=== PATIENT | male | born 1945 | race Caucasian/White ===

== ENCOUNTER 2017-06-15 11:31 | Inpatient (IN) ==
--- NOTE | 2017-06-15 18:18 | Diag Imaging Result Doc PS360 ---
CHEST-PORTABLE - 06/15/2017 INDICATION: Acute ischemia of left lower extremity TECHNIQUE: COMPARISON: 04/30/2016 FINDINGS: The lungs are normally expanded and clear. Heart size and mediastinal contours are normal. No pneumothorax or pleural effusion. IMPRESSION: Negative exam. Electronically signed by Sanju Perkins 06/15/2017 6:16 PM
[2017-06-15] MEDS ORDERED: D50W SYRINGE IV PRN (18:19)
[2017-06-15 18:22] LABS: MANUAL DIFF NEEDED? NO
[2017-06-15 18:24] LABS: BASO% 0.5 % (0.0-0.8); EOS# 0.06 X1000 (0.0-0.7); EOS% 0.5 % (0.0-10.0); HEMATOCRIT 36.7 % (42.0-52.0); HEMOGLOBIN 12.9 g/dL (14.0-18.0); IMM GRAN# 0.04 X1000 (0.0-0.04); IMM GRAN% 0.4 % (0.0-0.5); LYMPH# 1.94 X1000 (1.2-3.4); LYMPH% 17.6 % (20.5-51.1); MCH 33.1 PG (27-31); MCHC 35.1 g/dL (33-37); MCV 94.1 FL (81-99); MONO# 1.12 X1000 (0.11-0.59); MONO% 10.2 % (1.7-9.3); MPV 9.9 FL (7.4-10.4); NEUT% 70.8 % (42.2-75.2); PLT 275 X1000 (130-400)
[2017-06-15 18:33] LABS: INR 0.94; PROTIME 9.8 Seconds (9.2-11.7); PTT 26.1 Seconds (22.0-36.0)
[2017-06-15 18:53] LABS: AGAP 23; ALBUMIN 3.9 g/dL (3.5-5.0); ALKALINE PHOSPHATASE 128 U/L (32-122); BUN 16 mg/dL (8-22); CALCIUM 10.4 mg/dL (8.8-10.2); CHLORIDE 87 mmol/L (98-107); COSMO 278; GOT 11 U/L (10-34); GPT 9 U/L (10-44); SODIUM 137 mmol/L (136-145); TCO2 27 mmol/L (25-35); TOTAL BILIRUBIN 0.23 mg/dL (0.20-1.00); TOTAL PROTEIN 6.3 g/dL (6.3-8.3)
[2017-06-15] MEDS ORDERED: HEPARIN 25,000 UNIT in NS 250 ML IV SCH (20:00)
[2017-06-15] MEDS ORDERED: HEPARIN IV ONE (20:00)
[2017-06-15] MEDS: HUMALOG SUBQ SCH (20:11)
[2017-06-15] MEDS: CARDIZEM PO SCH (20:14)
[2017-06-15] MEDS: NICODERM PATCH TD SCH (20:39)
[2017-06-16] MEDS: NORCO-10 PO PRN ×2 (00:08→16:48)
[2017-06-16 02:40] LABS: MANUAL DIFF NEEDED? NO
[2017-06-16 02:49] LABS: BASO% 1.2 % (0.0-0.8); EOS# 0.33 X1000 (0.0-0.7); EOS% 3.5 % (0.0-10.0); HEMATOCRIT 33.8 % (42.0-52.0); HEMOGLOBIN 11.9 g/dL (14.0-18.0); IMM GRAN# 0.05 X1000 (0.0-0.04); IMM GRAN% 0.5 % (0.0-0.5); LYMPH# 2.06 X1000 (1.2-3.4); LYMPH% 22.1 % (20.5-51.1); MCH 33.4 PG (27-31); MCHC 35.2 g/dL (33-37); MCV 94.9 FL (81-99); MONO# 1.08 X1000 (0.11-0.59); MONO% 11.6 % (1.7-9.3); MPV 10.3 FL (7.4-10.4); NEUT% 61.1 % (42.2-75.2); PLT 205 X1000 (130-400); RBC 3.56 XMIL (4.7-6.1)
[2017-06-16] MEDS: CARDIZEM PO SCH ×4 (02:49→21:12)
[2017-06-16] MEDS ORDERED: HEPARIN IV ONE ×3 (03:32→11:19)
[2017-06-16] MEDS ORDERED: HEPARIN 25,000 UNIT in NS 250 ML IV SCH (03:33)
--- NOTE | 2017-06-16 05:16 | EKG Report ---
Test Performed on : 06/15/2017 6:02:07 PM Test Reason : Acute ischemia of left lower extremity Blood Pressure : / mmHG Vent. Rate : 058 BPM Atrial Rate : 058 BPM P-R Int : 150 ms QRS Dur : 086 ms QT Int : 444 ms P-R-T Axes : 040 025 -61 degrees QTc Int : [address] \T\ T wave abnormality, consider inferolateral ischemia Abnormal ECG When compared with ECG of 27-APR-2016 06:08, T wave inversion now evident in Inferior leads T wave inversion now evident in Anterolateral leads QT has shortened Confirmed by Hira Crocker MD ([id number]) on 06/21/2017 6:00:18 AM
[2017-06-16] MEDS: HUMALOG SUBQ SCH ×4 (06:10→21:11)
[2017-06-16] MEDS: GLUCOPHAGE PO SCH ×3 (08:35→16:48)
[2017-06-16] MEDS: PRINZIDE 20/12.5MG PO SCH (08:36)
[2017-06-16] MEDS: LASIX PO SCH ×2 (08:36→21:11)
[2017-06-16] MEDS: ASPIRIN EC PO SCH (08:36)
[2017-06-16] MEDS: LOPRESSOR PO SCH ×2 (08:36→21:12)
[2017-06-16] MEDS: KLOR-CON PO SCH (08:36)
[2017-06-16] MEDS: NICODERM PATCH TD SCH (08:37)
--- NOTE | 2017-06-16 08:57 | PROGRESS NOTE ---
DATE: 06/16/2017 Mr. Albrecht is on a heparin protocol. He has acute ischemia of the left lower extremity. We are going to get the arterial flow started in both legs and we are getting a vascular consult with Dr. Nam. cc: Casimiro Reeves MD
[2017-06-16] MEDS: PLAVIX PO SCH (10:27)
--- NOTE | 2017-06-16 11:23 | HISTORY AND PHYSICAL ---
HISTORY OF PRESENT ILLNESS: Mr. Albrecht who is a 71-year-old white gentleman, comes to the office with severe ischemia of the left forefoot especially all the toes more on the little toe and the big toe. He has some vascular disease and had bilateral arterial surgery probably stents in the past. I am not sure about that. However, he says that they did on him on both legs. He is a heavy smoker. Still smokes. Has been smoking for many years and still smokes about a pack of cigarettes per day. He has a history of hypertension, diabetes, and has gone into congestive heart failure. He had 1 stent put in his heart after he had a heart attack. Other details of personal, past, and family history of noncontributory. He does not drink. ALLERGIES: He is allergic to codeine. REVIEW OF SYSTEMS: Other than the color change and pain in the foot, it is he negative. Otherwise unremarkable. SOCIAL HISTORY: He retired about 10 years ago from work at [employer] in [place]. PHYSICAL EXAMINATION: VITAL SIGNS: Temperature normal, pulse about 56 per minute, respiratory rate 16 per minute. Blood pressure 175/75. HEENT: Head normocephalic. PERRLA. Fundus examination reveals grade 2 changes of hypertensive retinopathy. Neck supple. JVP normal. ENT exam unremarkable. There is no evidence of lymphadenopathy, thyroid enlargement, anemia or clubbing. He has some mild bilateral pedal edema. Pedal pulses are absent in the left foot. Feeble in the right foot. The popliteal pulses are also on very weak in the right in the left leg as well as in the right leg. Shady sign is negative. His toes revealed severe cyanotic toes especially the big toe and little toe and the other toes on the left side also are slightly discolored, bluish. BREAST: Exam reveals gynecomastia. CHEST: Normal to inspection. LUNGS: basal rales both bases. PMI in the 6th intercostal space outside the midclavicular line. HEART: Sounds normal. No murmur, gallop or rub noted. ABDOMEN: Nondistended. Hernial orifices normal. No guarding, rigidity, free fluid, masses, or organomegaly. Bowel sounds normal. RECTAL: Deferred. 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 Cranial nerves normal. Motor and sensory system examination unremarkable. Deep tendon reflexes normal. Plantars downgoing. Skull and spine examination normal for age. No cerebellar signs or signs of meningeal irritation. LOCOMOTOR EXAM: Unremarkable. SKIN EXAM: Unremarkable. CLINICAL IMPRESSION: Acute ischemia of the left lower extremity, especially the foot. We will start him on heparin protocol. He has history of hypertension, diabetes mellitus, coronary artery disease and congestive heart failure. cc: Casimiro Reeves MD
[2017-06-16] MEDS: HEPARIN 25,000 UNIT in NS 250 ML IV SCH (12:11)
--- NOTE | 2017-06-16 18:15 | CONSULTATION ---
DATE OF CONSULTATION: 06/16/2017 CHIEF COMPLAINT: Blue toes, great 4th and 5th toes of left foot. HISTORY OF PRESENT ILLNESS: This is a 71-year-old obese smoker who reports a recent onset of some bluish discoloration to his toes on the left foot. Apparently, according to his records, he has had previous problems with discoloration of his toes. He was seen by Dr. Reeves and admitted to the hospital for his ischemia. PAST MEDICAL HISTORY: Pertinent for nicotine abuse, hypertension, diabetes, congestive heart failure, and ischemic heart disease. PAST SURGICAL HISTORY: Previous surgery includes right common iliac stent and left external iliac stent placed by myself in 2013. MEDICATIONS: His medications at home include Plavix, Cardizem, Lasix, Prinzide, insulin, Glucophage, Lopressor. ALLERGIES: He is allergic to codeine. SOCIAL HISTORY: He does smoke daily. He is retired from [employer]. REVIEW OF SYSTEMS: As noted above. PHYSICAL EXAMINATION: Vital Signs: He is afebrile. Heart rate 58, blood pressure 161/82. Neck: No cervical adenopathy. Lungs: Bilateral breath sounds. He has end inspiratory wheezes. Heart: Regular rate and rhythm. Abdomen: Distended and nontender. Extremities: No femoral pulses are palpated. No pedal pulses are palpated. He has bluish discoloration of the 1st, 4th, and 5th toes of the left foot. ASSESSMENT AND PLAN: Probable digital ischemia from smoking, even though embolic phenomenon cannot be ruled out. The plan will be get a lower extremity arterial study and then potentially get a CT angiogram. cc: MD Casimiro Chopra MD
--- NOTE | 2017-06-16 18:56 | VASCULAR LAB ---
PROCEDURE NAME: Arterial Bilateral Legs - 06/15/2017 REFERRING PHYSICIAN: Casimiro Reeves MD. READING PHYSICIAN: Giancarlo Helton MD. WRAPPER SIZER: Obed. INDICATION: Left foot pain and toe discoloration. FINDINGS: The pulse volume waveforms show blunted pulsatile flow beginning in the left calf down through the ankle and digital level, and the low thigh level on the left all the way through the digital level. Segmental pressures: right brachial 139, low thigh 157, popliteal 112, dorsalis pedis 96, posterior tibial 95, toe pressure 78, SARBJIT 0.6. Left brachial pressure 160, low thigh 101, popliteal 97, dorsalis pedis 98, posterior tibial 98, toe pressure 27, SARBJIT 0.6. INTERPRETATION: There is evidence of stenosis at the distal superficial femoral, popliteal level on the right and on the left it may be in the common femoral to superficial femoral area. cc: MD Casimiro Nuñez MD
[2017-06-17] MEDS: HEPARIN 25,000 UNIT in NS 250 ML IV SCH ×2 (01:32→07:48)
[2017-06-17] MEDS: CARDIZEM PO SCH ×4 (02:56→21:07)
[2017-06-17] MEDS: NORCO-10 PO PRN ×3 (03:46→21:10)
[2017-06-17] MEDS: HUMALOG SUBQ SCH ×5 (05:50→21:06)
[2017-06-17] MEDS: NICODERM PATCH TD SCH (05:51)
[2017-06-17 05:56] LABS: MANUAL DIFF NEEDED? NO
[2017-06-17 06:00] LABS: BASO% 0.7 % (0.0-0.8); EOS# 0.17 X1000 (0.0-0.7); EOS% 1.8 % (0.0-10.0); HEMATOCRIT 33.7 % (42.0-52.0); HEMOGLOBIN 11.8 g/dL (14.0-18.0); IMM GRAN# 0.05 X1000 (0.0-0.04); IMM GRAN% 0.5 % (0.0-0.5); LYMPH# 1.39 X1000 (1.2-3.4); LYMPH% 14.3 % (20.5-51.1); MCH 33.8 PG (27-31); MCV 96.6 FL (81-99); MONO# 0.77 X1000 (0.11-0.59); MONO% 7.9 % (1.7-9.3); MPV 10.3 FL (7.4-10.4); NEUT% 74.8 % (42.2-75.2); PLT 191 X1000 (130-400); RBC 3.49 XMIL (4.7-6.1)
[2017-06-17 06:22] LABS: CALCIUM 9.2 mg/dL (8.8-10.2); POTASSIUM 3.4 mmol/L (3.5-5.1)
[2017-06-17] MEDS ORDERED: HEPARIN IV ONE (06:52)
[2017-06-17] MEDS: PRINZIDE 20/12.5MG PO SCH (09:04)
[2017-06-17] MEDS: LASIX PO SCH ×2 (09:04→21:06)
[2017-06-17] MEDS: ASPIRIN EC PO SCH (09:04)
[2017-06-17] MEDS: GLUCOPHAGE PO SCH ×3 (09:05→16:55)
[2017-06-17] MEDS: LOPRESSOR PO SCH ×3 (09:05→21:09)
[2017-06-17] MEDS: KLOR-CON PO SCH (09:05)
[2017-06-17] MEDS: PLAVIX PO SCH (09:07)
--- NOTE | 2017-06-17 20:55 | PROGRESS NOTE ---
DATE: 06/17/2017 SUBJECTIVE: Mr. Albrecht has been on IV heparin. He has digital ischemia which can be from embolic phenomenon as per Dr. Nam, but we will try to get the lower extremity arterial study and then potentially CT angiogram. His EKG revealed sinus bradycardia. He is not in atrial fibrillation at the present time. He has some ischemic changes. This still can be Possibility of embolic phenomenon. We will try to get the echocardiogram on him also. cc: Casimiro Reeves MD
--- NOTE | 2017-06-17 20:59 | ECHO REPORT ---
ORDER DATE: 06/17/2017 MEASUREMENTS: Left ventricular end-diastolic diameter 5.6, end-systolic diameter 3.6. Septal thickness 1.1. Posterior wall thickness 0.9. Left atrium 4.2. Aortic root 4.0. SUMMARY: 1. Technically difficult study due to limited acoustic window quality. 2. Minimal sclerosis of trileaflet aortic valve demonstrated with normal aortic valve opening evident. Mitral, tricuspid and pulmonic valves are without structural abnormality with trace mitral regurgitation, trace tricuspid regurgitation and trace pulmonic insufficiency. The aortic root is mildly enlarged. 3. Normal left ventricular dimensions suggested on 2-D images. Estimated left ejection fraction appears to be at least 65%. No regional wall motion abnormality can be appreciated. Left atrium is borderline enlarged. Right atrium and right ventricle are normal in size with normal right ventricular systolic function. 4. No pericardial effusion. 5. Appearance of the inferior vena cava suggests normal central venous pressure. CONCLUSIONS: 1. Technically difficult study. 2. No significant valvular abnormality. 3. Estimated left ejection fraction at least 65%. 4. Borderline left atrial enlargement. 5. Mild aortic root enlargement. cc: MD Casimiro Rivas MD
[2017-06-18] MEDS: HEPARIN 25,000 UNIT in NS 250 ML IV SCH ×3 (00:59→13:18)
[2017-06-18] MEDS: CARDIZEM PO SCH ×4 (03:47→19:59)
[2017-06-18] MEDS: NORCO-10 PO PRN ×3 (05:15→21:59)
[2017-06-18 05:52] LABS: MANUAL DIFF NEEDED? NO
[2017-06-18 05:56] LABS: BASO% 0.9 % (0.0-0.8); EOS# 0.36 X1000 (0.0-0.7); EOS% 3.4 % (0.0-10.0); HEMATOCRIT 33.3 % (42.0-52.0); HEMOGLOBIN 11.4 g/dL (14.0-18.0); IMM GRAN# 0.09 X1000 (0.0-0.04); IMM GRAN% 0.9 % (0.0-0.5); LYMPH# 1.49 X1000 (1.2-3.4); LYMPH% 14.1 % (20.5-51.1); MCH 33.4 PG (27-31); MCHC 34.2 g/dL (33-37); MCV 97.7 FL (81-99); MONO# 0.72 X1000 (0.11-0.59); MONO% 6.8 % (1.7-9.3); MPV 10.1 FL (7.4-10.4); NEUT% 73.9 % (42.2-75.2); PLT 207 X1000 (130-400); RBC 3.41 XMIL (4.7-6.1)
[2017-06-18] MEDS: HUMALOG SUBQ SCH ×4 (06:35→20:19)
[2017-06-18] MEDS: NICODERM PATCH TD SCH (10:42)
[2017-06-18] MEDS: ASPIRIN EC PO SCH (10:42)
[2017-06-18] MEDS: GLUCOPHAGE PO SCH ×3 (10:42→17:26)
[2017-06-18] MEDS: PLAVIX PO SCH (10:42)
[2017-06-18] MEDS: LOPRESSOR PO SCH ×2 (10:43→20:19)
[2017-06-18] MEDS: LASIX PO SCH ×2 (10:43→20:19)
[2017-06-18] MEDS: PRINZIDE 20/12.5MG PO SCH (10:43)
[2017-06-18] MEDS: KLOR-CON PO SCH (10:43)
--- NOTE | 2017-06-18 12:01 | PROGRESS NOTE ---
DATE: 06/18/2017 Mr. Albrecht is receiving IV heparin. He is recovering from acute arterial insufficiency in the left leg. He also has some problems with the right leg and also probably the superficial femoral artery on both sides. He is getting an aortic arteriogram tomorrow. He is seen by Dr. Nam. cc: Casimiro Reeves MD
--- NOTE | 2017-06-18 14:14 | PROGRESS NOTE ---
DATE: 06/18/2017 SUBJECTIVE: The patient says his left foot is feeling a little better. Still hurts some. OBJECTIVE: Vital Signs: He is afebrile. Vital signs are stable. General: He is awake and alert. He is oriented x4. No acute distress. Extremities: His left foot is warm; however, the toes are purple in appearance. I can feel palpable pulse at the posterior tibial on the left. Lower extremity arterial study was reviewed. He does have stenosis of the right SFA and popliteal artery on the left common femoral and superficial femoral artery. His toe pressures on the left are significantly reduced as well. ASSESSMENT AND PLAN: A 71-year-old male with peripheral arterial disease and ischemic left toes. He is on heparin drip. Dr. Nam will be back Tuesday for further evaluation and possible intervention. cc: MD Casimiro Nuñez MD
[2017-06-19] MEDS: HEPARIN 25,000 UNIT in NS 250 ML IV SCH ×3 (00:43→20:25)
[2017-06-19] MEDS: CARDIZEM PO SCH ×4 (01:58→20:25)
[2017-06-19] MEDS: HUMALOG SUBQ SCH ×3 (06:06→16:26)
[2017-06-19] MEDS: NORCO-10 PO PRN ×3 (06:36→20:24)
[2017-06-19] MEDS: NICODERM PATCH TD SCH ×2 (06:36→09:26)
[2017-06-19] MEDS: PRINZIDE 20/12.5MG PO SCH (09:22)
[2017-06-19] MEDS: PLAVIX PO SCH (09:22)
[2017-06-19] MEDS: GLUCOPHAGE PO SCH ×3 (09:22→16:25)
[2017-06-19] MEDS: LASIX PO SCH ×2 (09:22→20:24)
[2017-06-19] MEDS: KLOR-CON PO SCH (09:22)
[2017-06-19] MEDS: ASPIRIN EC PO SCH (09:22)
--- NOTE | 2017-06-19 09:22 | PROGRESS NOTE ---
DATE: 06/19/2017 SUBJECTIVE: The patient says his left great toe sometimes will throb but overall he thinks his foot is feeling better. OBJECTIVE: Vital Signs: He is afebrile. Vital signs are stable. General: He is alert and oriented x4. No acute distress. Extremities: His left foot is warm. The 2nd through 5th toes are warm and pink. The great toe is less ischemic appearing. It is more pink today than yesterday. It is somewhat cool at the tip. ASSESSMENT/PLAN: A 71-year-old male with peripheral arterial disease and ischemia of the right foot. This appears to be improving. He should continue his heparin drip. Dr. Nam will re- evaluate him tomorrow for any possible revascularization of the left lower extremity. This is actually his left lower extremity which is bothering him and is the left foot that I examined, and his lower extremity arterial study indicates worsened disease on the left side. cc: MD Casimiro Nuñez MD
[2017-06-19] MEDS: LOPRESSOR PO SCH ×2 (09:23→20:24)
--- NOTE | 2017-06-19 10:32 | PROGRESS NOTE ---
DATE: 06/19/2017 Mr. Albrecht is doing better. His lungs are clear. Heart sounds are normal. Toe color is improving. He had arteriogram done today, the results will be back later on. He is on IV heparin which we will continue. cc: Casimiro Reeves MD
--- NOTE | 2017-06-19 11:54 | Diag Imaging Result Doc PS360 ---
EXAM: ANGIOGRAM/AORTA W/RUNOFF INDICATION: Ischemic toes TECHNIQUE: In addition to the thin section CTA axial images, 3-D MIP reformations were obtained. COMPARISON: None. FINDINGS: There is extensive aortoiliac atherosclerotic disease with extensive calcification and soft mural plaques. There is intermittent aortic ectasia. This is similar to the previous study. However, at the distal aorta just proximal to the bifurcation, there is a small aneurysm that is larger measuring approximately 3.4 x 3.2 cm axially (2.7 x 2.7 cm previously). There is intermittent luminal narrowing throughout the aorta due to mural thrombus similar to the previous study but it remains patent. There is extensive iliac artery atherosclerotic calcification with intermittent moderate luminal stenosis. There appears to have been interval placement of stents in the right common iliac artery and left external iliac artery. Both stents remain patent. However, there is fairly severe stenosis at the distal aspect of the stent on the left. There is moderate to severe stenosis involving the celiac trunk that is stable. The proximal segment of the EMILE is occluded but it is reconstituted distally. The SMA and renal arteries are patent. Otherwise, the abdomen and pelvis are essentially stable with no evidence of acute pathology. Right: There is atherosclerotic calcification involving the common femoral artery with only mild narrowing. There is atherosclerotic disease involving the superficial femoral artery with severe stenosis distally. The proximal popliteal artery is occluded. It is reconstituted distally. There is atherosclerotic disease involving the proximal anterior tibial artery. However, it remains patent and provide runoff to the foot. There is atherosclerotic calcification at the tibioperoneal trunk but it remains patent. The posterior tibial artery is patent throughout its course providing runoff to the foot. There is mild atherosclerotic calcification involving the proximal peroneal artery. The peroneal artery is very diminutive distally but it is a least patent at the level of the ankle. Left: There is atherosclerotic disease involving the common femoral artery with mild to moderate stenosis. Atherosclerotic disease involving the superficial femoral artery is causing focal moderate stenosis at the mid thigh. It remains patent, however. Atherosclerotic disease at the proximal popliteal artery is causing moderate stenosis. It remains patent. The anterior tibial artery remains patent throughout its course providing runoff to the foot. There is mild calcification at the tibioperoneal trunk but it remains patent. There is mild calcification at the proximal posterior tibial artery. However, it remains patent throughout its course and provide runoff to the foot. The peroneal artery is patent throughout its course providing runoff to the foot. IMPRESSION: Advanced atherosclerotic disease involving the aorta, iliac arteries, and arteries of the lower extremities as detailed above with a small distal aortic aneurysm that is larger than the previous study. Electronically signed by Hasmukh Matos 06/19/2017 11:52 AM
[2017-06-20] MEDS: NORCO-10 PO PRN ×3 (04:14→20:14)
[2017-06-20] MEDS: CARDIZEM PO SCH ×4 (04:15→20:15)
[2017-06-20] MEDS: HUMALOG SUBQ SCH ×5 (06:04→20:13)
[2017-06-20] MEDS ORDERED: HEPARIN IV ONE (07:45)
[2017-06-20] MEDS: NICODERM PATCH TD SCH (08:28)
[2017-06-20] MEDS: PLAVIX PO SCH (08:28)
[2017-06-20] MEDS: GLUCOPHAGE PO SCH ×3 (08:29→17:04)
[2017-06-20] MEDS: KLOR-CON PO SCH (08:29)
[2017-06-20] MEDS: LASIX PO SCH ×2 (08:29→20:15)
[2017-06-20] MEDS: PRINZIDE 20/12.5MG PO SCH (08:29)
[2017-06-20] MEDS: LOPRESSOR PO SCH ×2 (08:29→20:13)
[2017-06-20] MEDS: ASPIRIN EC PO SCH (08:29)
[2017-06-20] MEDS ORDERED: HEPARIN 25,000 UNIT in NS 250 ML IV SCH (09:00)
--- NOTE | 2017-06-20 11:37 | PROGRESS NOTE ---
DATE: 06/20/2017 SUBJECTIVE: Mr. Albrecht is doing better. His stool color is improving. He is on IV heparin. He had CT angiogram done on the abdominal aorta as well as renal arteries, and he does have significant atherosclerosis as well as aneurysm of the lower abdominal aorta which is slightly larger than before. I discussed with Dr. Nam. He wants to do the balloon angioplasty of the left iliac artery, common iliac artery, and he will be doing it tomorrow. We will probably discharge him on Tuesday, the day after tomorrow. cc: Casimiro Reeves MD
[2017-06-21] MEDS: CARDIZEM PO SCH ×5 (01:51→22:30)
[2017-06-21] MEDS: NORCO-10 PO PRN ×3 (04:09→22:28)
[2017-06-21] MEDS: HUMALOG SUBQ SCH ×4 (06:05→22:50)
[2017-06-21] MEDS: LOPRESSOR PO SCH ×3 (08:25→22:31)
[2017-06-21] MEDS: NICODERM PATCH TD SCH ×2 (08:26→22:50)
[2017-06-21] MEDS: PLAVIX PO SCH (08:26)
[2017-06-21] MEDS: PRINZIDE 20/12.5MG PO SCH (08:26)
[2017-06-21] MEDS: KLOR-CON PO SCH (08:27)
[2017-06-21] MEDS: LASIX PO SCH ×2 (08:27→22:29)
[2017-06-21] MEDS: GLUCOPHAGE PO SCH ×2 (08:27→12:26)
[2017-06-21] MEDS: ASPIRIN EC PO SCH (08:28)
--- NOTE | 2017-06-21 09:23 | PROGRESS NOTE ---
DATE: 06/21/2017 Mr. Albrecht is doing better. His vital signs are stable. He still has some purple-colored forefoot, especially the big toe and the little toe. He is going to get balloon angioplasty today by Dr. Nam. Physical exam otherwise is unchanged. -2 cc: Casimiro Reeves MD
[2017-06-21] MEDS ORDERED: DIPRIVAN 1% ONE (12:13)
[2017-06-21] MEDS ORDERED: FENTANYL ONE (12:14)
[2017-06-21] MEDS ORDERED: HEPARIN ONE ×2 (12:18→12:19)
[2017-06-21] MEDS ORDERED: NS 2,000 ML ONE (12:18)
[2017-06-21] MEDS ORDERED: KEFZOL 1 GM/D5W 1 GM/50 ML IVPB ONE (12:35)
[2017-06-21] MEDS ORDERED: XYLOCAINE-MPF 2% ONE (13:23)
[2017-06-21] MEDS ORDERED: QUELICIN (DOSE) ONE (13:23)
[2017-06-21] MEDS ORDERED: ROBINUL ONE (13:23)
[2017-06-21] MEDS ORDERED: NORCURON ONE (13:24)
[2017-06-21] MEDS ORDERED: SODIUM CHLORIDE 0.9% 10 ML ONE (13:24)
[2017-06-21] MEDS ORDERED: XYLOCAINE 2% JELLY ONE (13:25)
[2017-06-21] MEDS ORDERED: NEOSTIGMINE ONE (13:25)
[2017-06-21] MEDS ORDERED: HEPARIN (DOSE) ONE (13:26)
[2017-06-21] MEDS ORDERED: ZOFRAN ONE (13:31)
[2017-06-21 14:33] LABS: URINE MICRO REVIEW NEEDED? NO; URINE SOURCE CATH
[2017-06-21 14:46] LABS: BILIRUBIN URINE NEGATIVE (NEGATIVE); BLOOD URINE NEGATIVE (NEGATIVE); COLOR YELLOW; GLUCOSE URINE NEGATIVE (NEGATIVE); LEUKOCYTES URINE NEGATIVE (NEGATIVE); NITRITE URINE NEGATIVE (NEGATIVE); PH URINE 7.5; PROTEIN URINE TRACE mg/dL (NEGATIVE); TURBIDITY URINE CLEAR (CLEAR); UR EPITHELIAL CELLS <10 /HPF (<10); URINE BACTERIA NEGATIVE /HPF; URINE RBC <10 /HPF (<10); URINE WBC <10 /HPF (<10); UROBILINOGEN URINE NORMAL (NORMAL)
--- NOTE | 2017-06-21 14:47 | OPERATIVE NOTE ---
PROCEDURE DATE: 06/21/2017 PROCEDURE: 1. Left femoral artery access with ultrasound guidance. 2. Diagnostic aortogram. 3. Percutaneous left external iliac artery balloon angioplasty. SURGEON: Hsueyin Nam MD. CONVENTIONAL MORTGAGE UNDERWRITER: Karlos Lopez. PREOPERATIVE DIAGNOSIS: Left external iliac stenosis with discoloration of the toes on the left. POSTOPERATIVE DIAGNOSIS: Left external iliac stenosis with discoloration of the toes on the left. DESCRIPTION OF PROCEDURE: After satisfactory general endotracheal anesthesia the abdomen and both groins were prepped and draped in a sterile fashion. We imaged the left common femoral artery and under ultrasound guidance accessed it with a needle and passed the wire and a 6-Kiswahili sheath. This was Seldinger approach. We shot contrast retrograde. It went into the stent but did not go up the stent. We then used a Glidewire and with some difficulty traversed the stenosis at the distal end of the stent. We passed it into the aorta and again with some manipulation it went on up into the aorta. We then put our pigtail up and shot an aortogram which revealed a right common iliac stent to be nicely patent. The right iliac system was patent. The left iliac system was okay except for at the distal end of the external iliac stent is where the stenosis was. The previously placed stent was an 8 mm Smart Control stent so, we chose a 7 x 4 balloon on an 80 cm shaft. We passed it up to the stenosis and dilated it to nominal pressure for 30 seconds. We then went to the proximal end of the stent and did the same so that we would treat the entire stent with the balloon. Repeat arteriogram through the sheath showed a stenosis or a residual stenosis in the mid aspect of the stent so we once again, positioned the balloon in the mid aspect of the stent and ballooned it again for 30 seconds to nominal pressure. We then shot a completion left iliac arteriogram showing complete resolution of the stenosis in the stent and at the distal end of the stent. So, we were completely satisfied with the result. We removed our wire, placed a 6 7 Mynx closure device into the artery and deployed the Mynx plug in an appropriate manner. We then held pressure after the device was removed for 3 minutes. There was no evidence of bleeding and a pressure dressing was applied. He was then sent to the recovery room in satisfactory condition. He tolerated the procedure satisfactorily. 80 mL of contrast were used. cc: MD Casimiro Chopra MD
[2017-06-21] MEDS: PERIDEX MT SCH (22:28)
[2017-06-22] MEDS: CARDIZEM PO SCH ×2 (02:43→08:46)
[2017-06-22] MEDS: NORCO-10 PO PRN ×2 (03:23→11:06)
[2017-06-22] MEDS: HUMALOG SUBQ SCH (06:01)
[2017-06-22 06:58] LABS: AGAP 11; BUN 11 mg/dL (8-22); CALCIUM 8.3 mg/dL (8.8-10.2); CHLORIDE 97 mmol/L (98-107); COSMO 285; POTASSIUM 3.6 mmol/L (3.5-5.1); SODIUM 142 mmol/L (136-145); TCO2 34 mmol/L (25-35)
[2017-06-22 08:10] VITALS: BP 134/72
[2017-06-22] MEDS: KLOR-CON PO SCH (08:46)
[2017-06-22] MEDS: PLAVIX PO SCH (08:46)
[2017-06-22] MEDS: LOPRESSOR PO SCH (08:46)
[2017-06-22] MEDS: PERIDEX MT SCH (08:46)
[2017-06-22] MEDS: PRINZIDE 20/12.5MG PO SCH (08:46)
[2017-06-22] MEDS: LASIX PO SCH (08:46)
[2017-06-22] MEDS: ASPIRIN EC PO SCH (08:46)
--- NOTE | 2017-06-22 09:25 | PROGRESS NOTE ---
DATE: 06/22/2017 Mr. Albrecht is doing better. He had a balloon angioplasty of the left external iliac artery yesterday by Dr. Nam. The color of the little toe is pink now. The big toe is less purple and he feels better. He is going to go back on clopidogrel as well as aspirin and I will see him in the office next week to evaluate his medicine. He will also be followed by Dr. Nam. cc: Casimiro Reeves MD
--- NOTE | 2017-06-22 12:01 | DISCHARGE SUMMARY ---
ADMISSION DATE: 06/15/2017 DISCHARGE DATE: 06/22/2017 HISTORY: Mr. Albrecht was admitted with acute ischemia of the left lower extremity. LABORATORY DATA IN THE HOSPITAL: A chest x-ray was negative for any acute problems. EKG had revealed he had some T-wave changes which were nonspecific. He was in sinus rhythm, had a short QT interval. A CTA of the aorta was done which revealed the presence of advanced atherosclerotic disease involving the aorta, iliac arteries, and arteries of the lower extremities as mentioned in the discharge report. There was an aortic aneurysm which was larger, but it was still small. His aneurysm is about 3.4 x 3.2 cm axially. COURSE IN THE HOSPITAL: He was put on IV heparin. Dr. Nam was consulted. After the initial arterial flow studies, he decided to do the CTA of the abdominal aorta and then decided about undergoing angioplasty on the left external iliac arteries which was performed yesterday. He is on Plavix as well as clopidogrel, and he is strictly advised to stop smoking. FINAL DIAGNOSES: 1. Acute ischemia of the left lower extremity with generalized arteriosclerotic disease. 2. Stenosis of the left external iliac artery which was treated with balloon dilatation angioplasty. He will be seen in the office in about 3 to 4 days. I will give him a prescription of [place] 10 t.i.d. p.r.n., 30 tablets in the meantime. cc: Casimiro Reeves MD
--- NOTE | 2017-06-28 09:09 | DISCHARGE SUMMARY ---
ADMISSION DATE: 06/15/2017 DISCHARGE DATE: 06/22/2017 DISCHARGE SUMMARY ADDENDUM: Mr. Albrecht is a gentleman recently admitted for acute ischemia of the left lower extremity. He was somewhat short of breath. He has chronic diastolic heart failure. cc: Casimiro Reeves MD
== END 2017-06-22 11:15 | disposition home or self-care (01) ==
LOC: DIRADM 11:31 → 4N 17:34
PROVIDERS: ADMIT Internal Medicine; ATTEND Internal Medicine

== ENCOUNTER 2017-07-19 11:53 | Inpatient (IN) ==
[2017-07-19] MEDS ORDERED: ASPIRIN PO STA (12:06)
--- NOTE | 2017-07-19 12:30 | Diag Imaging Result Doc PS360 ---
CHEST-PORTABLE - 07/19/2017 INDICATION: CP TECHNIQUE: COMPARISON: 06/15/2017 FINDINGS: There are small calcified granulomas in the left lung base. The lungs are normally expanded and clear. Heart size and mediastinal contours are normal. No pneumothorax or pleural effusion. IMPRESSION: Negative exam. Electronically signed by Sanju Perkins 07/19/2017 12:28 PM
[2017-07-19 12:43] LABS: BASO% 0.1 % (0.0-0.8); HEMATOCRIT 33.3 % (42.0-52.0); HEMOGLOBIN 12.5 g/dL (14.0-18.0); IMM GRAN# 0.04 X1000 (0.0-0.04); IMM GRAN% 0.2 % (0.0-0.5); LYMPH# 0.39 X1000 (1.2-3.4); LYMPH% 2.4 % (20.5-51.1); MANUAL DIFF NEEDED? NO; MCH 33.9 PG (27-31); MCHC 37.5 g/dL (33-37); MCV 90.2 FL (81-99); MONO# 1.38 X1000 (0.11-0.59); MONO% 8.4 % (1.7-9.3); MPV 9.9 FL (7.4-10.4); NEUT% 88.9 % (42.2-75.2); PLT 213 X1000 (130-400); RBC 3.69 XMIL (4.7-6.1)
[2017-07-19 12:48] LABS: INR 0.95; PROTIME 9.9 Seconds (9.2-11.7)
[2017-07-19] MEDS ORDERED: ASPIRIN ONE (13:31)
[2017-07-19 13:32] LABS: AGAP 15; ALBUMIN 3.8 g/dL (3.5-5.0); ALKALINE PHOSPHATASE 149 U/L (32-122); BUN 9 mg/dL (8-22); CALCIUM 11.7 mg/dL (8.8-10.2); CHLORIDE 62 mmol/L (98-107); CK PROFILE 164 U/L (24-204); COSMO 231; GOT 26 U/L (10-34); GPT 17 U/L (10-44); LIPASE 1041 U/L (13-60); MAGNESIUM 1.1 mg/dL (1.5-2.7); POTASSIUM 3.1 mmol/L (3.5-5.1); TCO2 34 mmol/L (25-35); TOTAL BILIRUBIN 0.87 mg/dL (0.20-1.00); TOTAL PROTEIN 5.9 g/dL (6.3-8.3)
[2017-07-19 13:36] LABS: SODIUM 115 mmol/L (136-145)
--- NOTE | 2017-07-19 13:37 | EKG Report ---
Test Performed on : 07/19/2017 11:37:05 AM Test Reason : Chest Pain Blood Pressure : / mmHG Vent. Rate : 081 BPM Atrial Rate : 081 BPM P-R Int : 150 ms QRS Dur : 092 ms QT Int : 408 ms P-R-T Axes : 041 -10 -32 degrees QTc Int : 473 ms Sinus rhythm. with premature atrial complexes. Nonspecific ST and T wave abnormality Abnormal ECG When compared with ECG of 15-JUN-2017 18:02, premature atrial complexes. are now present T wave inversion less evident in Inferior leads T wave inversion no longer evident in Anterolateral leads Unconfirmed Result
[2017-07-19] MEDS ORDERED: VANCOMYCIN 1 GM/NS 1 GM/250 ML IVPB IV ONE (14:08)
[2017-07-19] MEDS ORDERED: NS 1,000 ML IV ONE (14:09)
--- NOTE | 2017-07-19 14:31 | PROVIDER DOCUMENTATION ---
This chart was entered by Margarita Flannery Scribe, acting as scribe for Carmel Starks MD. HPI-General Adult - General Chief Complaint: Chest Pain Stated Complaint: cp Time Seen by Provider: 07/19/17 12:04 Source: patient Allergies/Adverse Reactions: Patient Allergies Allergy/AdvReac Type Severity Reaction Status Date / Time codeine AdvReac Unknown Verified 07/19/17 11:56 Home Medications: Home Medication List Medication Instructions Recorded Confirmed Last Taken Type Metformin [Glucophage] 500 mg PO TID 06/15/17 06/15/17 06/15/17 13:00 History Clopidogrel [Plavix] 75 mg PO DAILY tablet 06/22/17 Unknown Rx Diltiazem [Cardizem] 30 mg PO Q6HR tablet 06/22/17 Unknown Rx Furosemide [Lasix] 40 mg PO BID tablet 06/22/17 Unknown Rx Hydrocodone/APAP 10 mg/325 mg 1 each PO TID PRN PRN #0 tablet 06/22/17 Unknown Rx [Garland-10] LISINOpril/HCTZ [Prinzide 1 each PO DAILY tablet 06/22/17 Unknown Rx 20/12.5MG] Metoprolol [Lopressor] 50 mg PO BID tablet 06/22/17 Unknown Rx Potassium Chloride E.r. [Klor-Con] 10 meq PO DAILY tablet 06/22/17 Unknown Rx - History of Present Illness -Gen Adult Nature of Presenting Problems: Pt is a 71 year old male who came to the ED with chest/back pain for about two weeks. Pt is unclear when answering questions. Dr. Starks looked at pt left great toe which was cold to the touch and purple. Pt reports he has diabetes. Location of Pain/Injury: reports: chest, feet (left great toe) Pain Radiation: reports: back Quality of Pain: reports: sharp Severity: reports: mild Onset/Duration: reports: unsure Timing: reports: still present Modifying Factors: improves with: nothing Associated Symptoms: reports: back/neck pain, chest pain Similar Symptoms Previously?: No Recently seen or treated by another doctor?: No Review of Systems - Adult - REVIEW OF SYSTEMS - ADULT Constitutional: denies: chills, fever Eyes: reports: no symptoms reported Ears, Nose, Mouth & Throat: reports: no symptoms reported Cardiovascular: reports: chest pain. denies: heart murmur, orthopnea Respiratory: denies: cough, shortness of breath Gastrointestinal: denies: diarrhea, nausea, vomiting Genitourinary: reports: no symptoms reported Musculoskeletal: reports: back pain. denies: frequent leg cramps, joint swelling Integumentary: reports: other (left great toe has cyanosis and cold to touch). denies: itching, nail changes Neurological: reports: no symptoms reported Psychiatric: reports: no symptoms reported Endocrine: reports: no symptoms reported Hematologic/Lymphatic: reports: no symptoms reported Allergic/Immunologic: reports: no symptoms reported All Other Systems: Reviewed and Negative Past History - Adult - PAST MEDICAL HISTORY-ADULT Review of Records: reports: Old Records Reviewed, Nursing Assessment Review Major Childhood Illnesses: reports: denies history Cardiovascular: reports: CAD, CHF, HTN Respiratory: reports: COPD Gastrointestinal: reports: denies history Obstetrical/Gynecological: reports: denies history Genitourinary: reports: denies history Musculoskeletal: reports: denies history Neurological: reports: denies history Psychiatric: reports: anxiety Endocrine/Immune: reports: Diabetes Other Conditions: reports: denies history - IMMUNIZATION STATUS Childhood Immunizations: See Nurse Assessment Flu Vaccine: See Nurse Assessment - FAMILY HISTORY Family History: reviewed, not pertinent Physical Exam-General - CONSTITUTIONAL General Appearance: no apparent distress - EYES Eyes: PERRL/EOMI, pink conjunctivae - HEAD, EARS, NOSE, MOUTH & THROAT HENMT: normocephalic/atraumatic, moist mucous membranes - NECK Neck: non-tender, full range of motion - RESPIRATORY Respiratory: chest non-tender, lungs clear, normal breath sounds - CARDIOVASCULAR Cardiovascular: normal peripheral pulses, regular rate, rhythm - GASTROINTESTINAL (ABDOMEN) Abdominal Exam: normal bowel sounds, non tender, soft - MUSCULOSKELETAL Back Exam: normal inspection, no CVA tenderness Extremity: other (left great toe cold to the touch and purple in color) - SKIN Integumentary: normal color, cyanosis (left great toe) - NEUROLOGIC Neurologic: grossly normal - PSYCHIATRIC Psych/Mental Status: normal mood/affect, normal thought content, normal thought process, oriented x 3 Progress - PLAN OF CARE/RESULTS Progress/Plan/Lab Results: Orders Category Date Time Status Cardiac Monitoring DIRECTED Care 07/19/17 12:06 Active Saline Loc NOW Care 07/19/17 12:06 Active CHEST-PORTABLE [RAD] Stat Exams 07/19/17 12:06 Taken CBC WITH ELECTRONIC DIFF [HEME] Stat Lab 07/19/17 12:06 Uncollected CK PROFILE [SP CHEM] Stat Lab 07/19/17 12:06 Uncollected COMPREHENSIVE METABOLIC PANEL [CHEM] Stat Lab 07/19/17 12:06 Uncollected D-DIMER [CHEM] Stat Lab 07/19/17 12:06 Uncollected LIPASE [CHEM] Stat Lab 07/19/17 12:06 Uncollected MAGNESIUM [CHEM] Stat Lab 07/19/17 12:06 Uncollected PRO B-NATRIURETIC PEPTIDE Stat Lab 07/19/17 12:06 Uncollected PROTIME WITH INR [COAG] Stat Lab 07/19/17 12:06 Uncollected PTT [COAG] Stat Lab 07/19/17 12:06 Uncollected TROPONIN T Stat Lab 07/19/17 12:06 Uncollected Aspirin Med 07/19/17 12:06 Discontinued 325 mg PO STAT STA EKG [EKG] Stat Ther 07/19/17 12:06 Ordered Result Diagrams: 07/19/17 11:49 07/19/17 11:49 - EKG 1 Time of EKG reading by physician:: 11:37 EKG Read and Signed by:: Carmel Starks EKG Interpretation (*Must complete 3 of following elements*): Abnormal Rate: 81 (nonspecific ST and T wave abnormality) Rhythm: sinus rhythm w premature atrial complexes - XRAY 1 XRAY Study: Chest (negative exam) - ULTRASOUND (By Radiology) 1 US Study: Lower Ext (left toe has no blood supply) - CONSULTS/PCP/HOSPITALIST Notification #1 *Consult/PCP/Hospitalist*: Dr. Nam Time Discussed: 14:16 (agrees with Dr. Cruz plan. ) Consult Disposition: Will see in ED #2 Consult: Dr. Reeves Time Discussed: 14:17 (agrees with dr cruz plan) Departure - Departure Date of Disposition Decision: 07/19/17 Time of Disposition Decision: 14:28 DIAGNOSIS: Hyponatremia, Acute pancreatitis, Chest pain, PAD (peripheral artery disease) Disposition: ADMITTED INPATIENT 09 Certified Medical Emergency: Emergent Condition: Stable Referrals and Follow-Ups: None,PCP [Clinical Support] - - Critical Care Note This patient required my direct & personal management of CC.: Yes Total Time (mins): 60 Critical Care Statement: This patient required my direct personal management to treat or rule out processes, the absence of which, could potentiallly result in sudden, clinically significant life or limb threatening deterioration. Attestation - Physician/ HAI Attestation Patient care was provided by Advanced Practice Provider:: No The physician spent face to face time with patient:: Yes Advanced Practice Provider documentation review:: Supervising physician onsite and consulted in the evaluation and care of this patient. The physician did have a face to face encounter with the patient. This chart was documented by the indicated scribe, (Margarita Flannery Scribe) and accurately reflects the services I performed and decisions made by me, Carmel Starks MD, as attested by the provider's signature.
[2017-07-19] MEDS ORDERED: ROCEPHIN 1 GM in NS 50 ML IV SCH (18:00)
[2017-07-19] MEDS ORDERED: LOVENOX SUBQ SCH (18:00)
[2017-07-19] MEDS ORDERED: DILAUDID IV PRN (18:03)
--- NOTE | 2017-07-19 18:38 | HISTORY AND PHYSICAL ---
HISTORY: Mr. Albrecht, who is a 71-year-old white gentleman, came to the emergency room because he cannot move around. He is very sick. He has severe pain in both lower extremities and shortness of breath. He was brought in by ambulance with son accompanying. He was hospitalized about a month ago for severe ischemia of the lower extremities and he had angioplasty done of the common iliac artery on the left side by Dr. Nam. He improved some after that. His left big toe is still ischemic and he has acute severe ischemia of both lower extremities. He gets intermittent pain; however, he cannot walk much on account of congestive heart failure and back pain. He had at least 2 stents placed in his heart in the past and angioplasty done recently by Dr. Nam. He has onset diabetes, hypertension, and history of congestive heart failure. He has been a chronic smoker. He still smokes about 3-5 cigarettes per day in spite of repeated warning. He does not drink. ALLERGIES: He is allergic to codeine. REVIEW OF SYSTEMS: He is lethargic and is complaining. He denies having any chest pain; however, he has shortness of breath. PHYSICAL EXAMINATION: VITAL SIGNS: Reveal a temperature 98.9 degree Fahrenheit, pulse 85 per minute, respiratory rate 21 per minute, blood pressure 178/100. HEENT: Head normocephalic. Pupils PERRLA. Fundus examination normal. ENT examination unremarkable. NECK: Supple. JVP normal. There is no evidence of lymphadenopathy, thyroid enlargement, cyanosis, or clubbing. He is slightly anemic. EXTREMITIES: There is bilateral leg edema. He has cyanotic left foot especially the big toe. Pedal pulses are absent in both feet. BREASTS: Reveals mild gynecomastia. Chest normal inspection. LUNGS: Reveal bilateral basal rales. PMI in the normal position. HEART: Sounds normal. No murmur. There is S3 gallop present. No rub noted. No murmur noted. ABDOMEN: Obese. Hernial orifices normal. No guarding, rigidity, free fluid, masses, or organomegaly. Bowel sounds normal. RECTAL: Deferred. BASE PLY HAND: Higher functions: Patient gets intermittently confused. Cranial nerves normal. Motor and sensory system examination unremarkable. Deep tendon reflexes normal. Plantars downgoing. Skull and spine examination reveals painful movements of the lumbosacral spine. SLR positive. No cerebellar signs or signs of meningeal irritation. Locomotor exam unremarkable. SKIN EXAM: Reveals impending gangrene of the left big toe. He has some cyanosis. LAB DATA: Patient's sodium is 115, white count is elevated. CLINICAL IMPRESSION: Acute ischemia of the lower extremities. He has congestive heart failure. PLAN: Start the IV saline as ordered by in the emergency room and continue it. Start the antibiotics. Blood cultures have been drawn in the emergency room. We will also get a vascular consult with Dr. Nam who is aware of his status. cc: Casimiro Reeves MD
[2017-07-19] MEDS: CARDIZEM PO SCH (20:37)
[2017-07-19] MEDS: PRINZIDE 20/12.5MG PO SCH (20:38)
[2017-07-19] MEDS: POTASSIUM CHLORIDE 10 MEQ in NS 1,000 ML IV SCH (20:38)
[2017-07-20] MEDS: CARDIZEM PO SCH ×4 (01:18→20:33)
[2017-07-20 06:51] LABS: BASO% 0.1 % (0.0-0.8); HEMATOCRIT 36.2 % (42.0-52.0); HEMOGLOBIN 13.5 g/dL (14.0-18.0); IMM GRAN# 0.06 X1000 (0.0-0.04); IMM GRAN% 0.3 % (0.0-0.5); LYMPH# 0.27 X1000 (1.2-3.4); LYMPH% 1.4 % (20.5-51.1); MANUAL DIFF NEEDED? YES; MCH 33.9 PG (27-31); MCHC 37.3 g/dL (33-37); MONO# 1.09 X1000 (0.11-0.59); MONO% 5.7 % (1.7-9.3); MPV 10.1 FL (7.4-10.4); NEUT% 92.5 % (42.2-75.2); PLT 227 X1000 (130-400); RBC 3.98 XMIL (4.7-6.1)
[2017-07-20 07:07] LABS: BANDS 2 % (0-1); LYMPHS 2 % (21-51); MONO 4 % (1-9)
[2017-07-20 07:18] LABS: AGAP 22; BUN 9 mg/dL (8-22); CHLORIDE 65 mmol/L (98-107); COSMO 248; POTASSIUM 3.1 mmol/L (3.5-5.1); TCO2 32 mmol/L (25-35)
[2017-07-20 07:33] LABS: SODIUM 120 mmol/L (136-145)
--- NOTE | 2017-07-20 08:22 | PROGRESS NOTE ---
DATE: 07/20/2017 SUBJECTIVE: Mr. Albrecht was admitted yesterday with multiple medical problems, and noted to have bluish discoloration to his great toe. He is known to me from his visit in late May, at which time he was admitted with some digital ischemia to his fourth and fifth toes on the left. At that time, he was found to have a patent right common iliac stent and a stenotic left external iliac stent. We were able to percutaneously balloon his left external iliac stent. As a result, he now has a palpable pulse in his posterior tibial artery. His fourth and fifth toes are improved. His great toe has become bluish and discolored. PAST MEDICAL HISTORY: Pertinent for nicotine abuse, hypertension, diabetes, congestive failure, and ischemic heart disease. HOME MEDICATIONS: Have included aspirin and Plavix. OBJECTIVE: General: He is confused. Vital Signs: His heart rate is 122. Lungs: He has rhonchi bilaterally. Heart: Irregular rate and rhythm. Abdomen: Soft and nontender. He does have no evidence of groin hematoma. Extremities: He has a 2+ left posterior tibial pulse, bluish discoloration to his great toe. His fourth and fifth toes have improved. His right foot shows no ischemic change in the toes. There are no palpable pedal pulses noted. ASSESSMENT: This is digital ischemia related to his smoking. We have provided as much flow as we can provide down to the foot level. There is no intervention necessary at this time for his toe. We will simply allow it to declare itself whether it improves with him being away from cigarettes or whether it does not improve. I simply ask that he stay on Plavix and aspirin. I will follow along. Thanks for the opportunity to see him. cc: MD Casimiro Chopra MD
[2017-07-20] MEDS ORDERED: LASIX IV ONE (08:54)
[2017-07-20] MEDS ORDERED: STERILE WATER INJ. INJ PRN (08:56)
[2017-07-20] MEDS ORDERED: GEODON IM PRN (08:56)
[2017-07-20] MEDS ORDERED: ROCEPHIN 1 GM in NS 50 ML IV SCH (09:00)
[2017-07-20] MEDS ORDERED: LOVENOX SUBQ SCH (09:00)
[2017-07-20] MEDS ORDERED: LASIX PO SCH (09:00)
--- NOTE | 2017-07-20 09:09 | PROGRESS NOTE ---
DATE: 07/20/2017 SUBJECTIVE: Mr. Albrecht is not doing well this morning. He is confused, disoriented. He has severe pulmonary congestion. Heart rate is around 122. He still has some cyanotic big toe on the left side, with severe peripheral vascular disease and aortoiliac disease too. He was seen by Dr. Nam, who does not want to pursue any further surgical treatment. He wants to continue the Plavix as well as aspirin. We will give him injection Lasix today, and try to sedate him if we can. He is being restrained as he is trying to pull out the IV lines. -3 cc: Casimiro Reeves MD
[2017-07-20] MEDS: GLUCOPHAGE PO SCH ×3 (09:19→17:46)
[2017-07-20] MEDS: PRINZIDE 20/12.5MG PO SCH (09:20)
[2017-07-20] MEDS: KLOR-CON PO SCH (09:20)
[2017-07-20] MEDS: PLAVIX PO SCH (09:20)
[2017-07-20] MEDS: ASPIRIN EC PO SCH (09:20)
[2017-07-20] MEDS: POTASSIUM CHLORIDE 10 MEQ in NS 1,000 ML IV SCH (09:21)
[2017-07-20] MEDS: LOPRESSOR PO SCH ×2 (09:23→20:33)
[2017-07-20] MEDS: DUONEB (A & A) INH SCH ×3 (09:27→19:36)
[2017-07-20 09:42] LABS: URINE CULTURE NEEDED? NO; URINE SOURCE CLEAN CATCH
[2017-07-20 09:45] LABS: BILIRUBIN URINE SMALL (NEGATIVE); BLOOD URINE LARGE (NEGATIVE); COLOR YELLOW; GLUCOSE URINE 300 mg/dL (NEGATIVE); LEUKOCYTES URINE NEGATIVE (NEGATIVE); NITRITE URINE NEGATIVE (NEGATIVE); PROTEIN URINE 300 mg/dL (NEGATIVE); TURBIDITY URINE HAZY (CLEAR); URINE MICRO REVIEW NEEDED? YES; UROBILINOGEN URINE NORMAL (NORMAL)
[2017-07-20 09:48] LABS: UR EPITHELIAL CELLS <10 /HPF (<10); URINE BACTERIA NEGATIVE /HPF; URINE RBC TNTC /HPF (<10); URINE WBC <10 /HPF (<10)
[2017-07-20 09:58] LABS: URINE CASTS GRANULAR PRESENT
[2017-07-20] MEDS ORDERED: MAGNESIUM SULFATE 4 GM/S.W.I. 4 GM/100 ML IVPB IV ONE (10:19)
--- NOTE | 2017-07-20 10:19 | Diag Imaging Result Doc PS360 ---
CHEST-PORTABLE - 07/20/2017 INDICATION: respiratory distress TECHNIQUE: COMPARISON: 07/19/2017 FINDINGS: The lungs are normally expanded and clear. Heart size and mediastinal contours are normal. No pneumothorax or pleural effusion. IMPRESSION: Negative exam. Electronically signed by Sanju Perkins 07/20/2017 10:17 AM
[2017-07-20] MEDS ORDERED: SAMSCA PO ONE (10:30)
[2017-07-20] MEDS ORDERED: 1/2 NS 1,000 ML IV ONE (10:37)
[2017-07-20 10:52] LABS: ALLEN TEST YES; BE 18.7 mmoll (-3.0-3.0); BLOOD TYPE ARTERIAL; DRAW SITE L BRACHIAL; METHB 1.4 % (0.0-1.5); O2(CT) 17.2 mL/dL (15.0-23.0); PCO2(98.6) 42 mmHg (35-45); PO2(98.6) 74 mmHg (60-100); SAMPLE BLOOD; SAO2 97.8 % (95.0-100.0)
[2017-07-20 10:54] LABS: pH(98.6) 7.61 (7.35-7.45)
[2017-07-20 10:55] LABS: MODALITY BI PAP
[2017-07-20] MEDS: POTASSIUM CHLORIDE 20 MEQ/SWI 20 MEQ/100 ML IVPB IV SCH ×2 (10:58→14:48)
[2017-07-20] MEDS ORDERED: HUMULIN R SUBQ SCH (11:00)
[2017-07-20] MEDS ORDERED: QUELICIN (DOSE) ONE (11:13)
[2017-07-20] MEDS ORDERED: DIPRIVAN 1% ONE (11:13)
[2017-07-20] MEDS ORDERED: SODIUM CHLORIDE 0.9% 10 ML ONE (11:13)
[2017-07-20] MEDS ORDERED: NEO-SYNEPHRINE ONE (11:13)
[2017-07-20] MEDS ORDERED: XYLOCAINE-MPF 2% ONE (11:13)
--- NOTE | 2017-07-20 11:15 | CONSULTATION ---
DATE OF CONSULTATION: 07/20/2017 REASON FOR CONSULTATION: Cardiology was consulted for dyspnea, CHF, known coronary artery disease. HISTORY OF PRESENT ILLNESS: History could not be obtained from the patient as patient is obtunded. He is a 71-year-old, gentleman who came to the emergency room. He was brought by ambulance. He was noted to have worsening shortness of breath and lower extremity edema. The patient was admitted, started on BiPAP. Has had multiple medical problems as listed below. Further history could not be obtained from the patient. History was obtained from the chart as well as our office. He does have coronary artery disease. He has had 2 stents as well as angioplasty to lower extremities as listed below. REVIEW OF SYSTEMS: Could not be obtained from the patient. PAST MEDICAL HISTORY: 1. Coronary artery disease, status post stent placement to the right coronary artery. 2. Last echocardiogram 06/17/2017 revealed ejection fraction of 65%. 3. Diastolic heart failure. 4. COPD. 5. Hypertension. 6. Peripheral vascular disease with angioplasty to the common iliac and has peripheral vascular disease with ulcers, lower extremity. 7. Gastroesophageal reflux disease. 8. Tobacco abuse. 9. Hypertension. 10. COPD, on home oxygen. 11. Jaw surgery. 12. Hand surgery in the past. 13. Diabetes. HOME MEDICATIONS: Included metformin 500 mg p.o. t.i.d., Plavix 75 mg a day, Cardizem 30 mg q.6 hours, lisinopril/hydrochlorothiazide 20/12.5 one tablet a day, Lopressor 50 b.i.d., potassium supplements, aspirin 81 mg a day. PHYSICAL EXAMINATION: Vital Signs: Blood pressure was 97/53. Cardiovascular System: Jugular venous pressure could not be assessed. First and second heart sounds were heard. There was no S3 gallop. Respiratory System: Few scattered wheeze. Abdomen: Distended, firm, with some grimacing on palpation. Bowel sounds could not be auscultated. Central Nervous System: Patient is obtunded. Extremities: Examination of extremities revealed pulses could be palpated, dorsalis pedis bilaterally. LABORATORY EXAMINATION: Revealed sodium when he came in was 115 and today 120, potassium 3.1, BUN 9, creatinine 0.9. Cardiac enzymes negative. ProBNP abnormal at 3894. Lipase 1041. Magnesium 1.1. WBCs 19.02, hemoglobin 13.5, hematocrit 36.2, platelet count of 227,000. D- dimer is 0.62. INR 0.9. Urine examination, white blood cells noted. ASSESSMENT AND PLAN: Mr. Tone Albrecht is a 71-year-old, gentleman who was noted to have shortness of breath and pedal edema. Was brought to the emergency room by ambulance service. Patient is obtunded. From a cardiac standpoint, he has had stent placement to the right coronary artery, has peripheral vascular disease, diabetes, hypertension, and gastroesophageal reflux disease. He has chronic obstructive pulmonary disease and has home oxygen. He is obtunded, labile blood pressures. He has got elevated white counts. His abdomen is distended. With abnormal lipase as well as bowel sounds were not audible. 1. From a cardiac standpoint, we will get an echocardiogram to reassess cardiac and valvular function. Cardiac enzymes are negative so far. We will obtain serial cardiac enzymes. Electrocardiogram revealed normal sinus rhythm, nonspecific ST-T changes. There were no acute changes. Recommendations, I suspect he has acute abdomen and sepsis. Blood gases are pending. His lipase is abnormal with no bowel sounds audible at the present time. Would recommend a CT scan of his abdomen and further studies as required. His renal function is normal. 2. He has chronic obstructive pulmonary disease and he is on oxygen. He is currently on BiPAP. Dr. Ordonez has been consulted. 3. As far as electrolytes are concerned, his sodium is better. However, I suspect this is secondary to multiple likely etiologies. History could not be obtained from the patient. His sodium is better at 120. He is on intravenous fluids. May benefit from Samsca. However, we will hold that until other diagnosis is obtained by further testing. 4. He has severe peripheral vascular disease. Dr. Nam has been consulted. 5. His magnesium is low. It will be repleted. 6. As far as his blood pressure is concerned, it is tenuous. Secondary to sepsis and like acute abdomen If required, we will add Tyson- Synephrine to his medical regimen. Thank you for the consult. We will follow hospital course. cc: MD Casimiro Ramon MD MTDD
[2017-07-20] MEDS ORDERED: DIPRIVAN 1% 3,000 MG/300 ML BOTTLE ONE (11:21)
--- NOTE | 2017-07-20 11:31 | CONSULTATION ---
DATE OF CONSULTATION: 07/20/2017 REQUESTING PHYSICIAN: Dr. Casimiro Reeves. REASON FOR CONSULTATION: Respiratory failure. HISTORY OF PRESENT ILLNESS: Mr. Albrecht is a 71-year-old white male with COPD, chronic hypoxemic respiratory failure, ongoing tobacco use, coronary artery disease with prior stent placement, peripheral vascular disease, status post recent stenting of the lower extremities, who came to the emergency room with altered mental status. Patient had severe hyponatremia along with severe hypercalcemia and altered mental status. The patient was on nasal cannula but has had respiratory decompensation and was placed on BiPAP. PAST MEDICAL HISTORY: Problem List: 1. COPD with chronic hypoxemic respiratory failure. 2. Coronary artery disease with prior stent placement. 3. Peripheral vascular disease with ischemia of the lower extremities. 4. Diabetes mellitus. 5. Obstructive sleep apnea, status post uvulopalatopharyngoplasty. 6. Hypertension. 7. Morbid obesity. SOCIAL HISTORY: Ongoing tobacco use. Denies alcohol use. He is retired from FAMILY HISTORY: Positive for diabetes. REVIEW OF SYSTEMS: Cannot be obtained. PHYSICAL EXAMINATION: General: Exam reveals an obese, white male, who is disheveled and on BiPAP. He will not follow commands. Vital Signs: BP 112/84, heart rate 125, oxygen saturation 92% on BiPAP. HEENT: Pupils are equal. Oropharynx evaluation is limited with BiPAP in place. Neck: Supple. Chest: Reveals prolonged expiratory phase with scattered wheezing. Cardiac: Distant heart sounds. Normal S1. Normal S2. Abdomen: Obese with diminished bowel sounds. Extremities: Reveal ischemia of the left great toe with mild cyanosis. LABORATORY DATA: Chest x-ray this morning reveals normal heart size, normal lung zapata. No acute changes. White blood count 19,000. Hemoglobin 13.5, platelet count 227,000. Chemistries: Amylase 231 and lipase 1041. Calcium 12.0. Sodium 120, potassium 3.1, chloride 65, bicarbonate 32. BUN 9, creatinine 0.9. Arterial blood gas on 100% FiO2: pH 7.61, pCO2 of 42, PO2 of 74 on BiPAP. IMPRESSION: A 71-year-old with severe chronic obstructive pulmonary disease, who presents with altered mental status, [id number] hypoxemic respiratory failure, severe hyponatremia, severe hypercalcemia, component of pancreatitis with elevated pancreatic enzymes, leukocytosis, and chronic ischemia of the left great toe associated with vascular disease, ongoing tobacco use. Clinically, he appears to be dehydrated. RECOMMENDATIONS: 1. Intubation and initiation of mechanical ventilation for respiratory failure and progressive decline. 2. CT scan of the thorax for severe hypercalcemia to rule out underlying malignancy. 3. CT scan of the abdomen and pelvis with oral contrast to evaluate elevated pancreatic enzymes. 4. Volume resuscitation for hypovolemia and hypercalcemia. 5. Routine bronchodilators. 6. Blood cultures as you have done. 7. Routine gastric acid suppression. 8. Long-term smoking cessation would be recommended. 9. Serum protein electrophoresis for hypercalcemia. cc: MD Casimiro Gonzalez MD
[2017-07-20] MEDS: NEO-SYNEPHRINE 50 MG in NS 250 ML IV SCH ×2 (12:00→23:23)
[2017-07-20] MEDS: 1/2 NS 1,000 ML IV SCH ×4 (12:00→22:35)
[2017-07-20] MEDS: PROTONIX IV SCH (12:00)
[2017-07-20] MEDS: DIPRIVAN 1% 1,000 MG/100 ML BOTTLE IV SCH ×4 (12:01→22:35)
--- NOTE | 2017-07-20 12:44 | Diag Imaging Result Doc PS360 ---
CHEST-PORTABLE - 07/20/2017 1210 INDICATION: ETT placement TECHNIQUE: COMPARISON: 1010 FINDINGS: There is a new endotracheal tube at about T5. There is a new nasogastric tube off the bottom of the film presumably in the stomach. There are some ill-defined perihilar and bibasilar infiltrates. IMPRESSION: Good support tube placement. Electronically signed by Sanju Perkins 07/20/2017 12:42 PM
--- NOTE | 2017-07-20 12:45 | Diag Imaging Result Doc PS360 ---
CHEST/ABD TUBE PLACEMENT - 07/20/2017 INDICATION: Et and NG placement TECHNIQUE: COMPARISON: Earlier 07/20/2017 FINDINGS: There is a new nasogastric tube in good position with the tip in the stomach. IMPRESSION: Good nasogastric tube placement. Electronically signed by Sanju Perkins 07/20/2017 12:43 PM
[2017-07-20] MEDS ORDERED: NS 250 ML ONE (13:18)
[2017-07-20 13:21] LABS: AGAP 15; ALBUMIN 3.3 g/dL (3.5-5.0); ALKALINE PHOSPHATASE 112 U/L (32-122); BUN 10 mg/dL (8-22); CHLORIDE 73 mmol/L (98-107); COSMO 257; GOT 21 U/L (10-34); GPT 14 U/L (10-44); POTASSIUM 3.3 mmol/L (3.5-5.1); SODIUM 124 mmol/L (136-145); TCO2 36 mmol/L (25-35); TOTAL BILIRUBIN 0.51 mg/dL (0.20-1.00); TOTAL PROTEIN 4.9 g/dL (6.3-8.3)
[2017-07-20] MEDS ORDERED: NS 1,000 ML IV ONE ×2 (14:02→15:26)
[2017-07-20] MEDS ORDERED: VANCOMYCIN IV PER PHARMACY MISC SCH (15:30)
[2017-07-20] MEDS: ZOSYN 3.375 GM in NS 50 ML IV SCH ×2 (15:42→20:33)
--- NOTE | 2017-07-20 15:45 | Diag Imaging Result Doc PS360 ---
EXAM: CT THORAX/ABD/PELVIS W/O CONT INDICATION: abdominal pain TECHNIQUE: Dose reduction protocol was used. COMPARISON: CTA chest dated 06/20/2012 and CTA abdomen and pelvis dated 02/19/2014 FINDINGS: CHEST: There is stable pulmonary emphysematous changes. There are a few calcified granulomata at the left lung base. There is atelectasis at both lung bases, more prominent on the left. Superimposed pneumonia, especially at the left lung base is possible. There is trace pleural fluid on the right. The patient is intubated. There is mild cardiomegaly. An NG tube is in place. Abdomen/pelvis: The liver, spleen, and gallbladder are unremarkable. There is stable low dense thickening involving the left adrenal gland indicating hyperplasia or adenoma. There is mesenteric stranding that appears to be most prominent at the mid abdomen near the pancreas. Correlate clinically to evaluate for potential pancreatitis. There also appears to be at least mild thickening of the proximal duodenum suggesting possible duodenitis. There is no evidence of bowel obstruction. There is trace fluid tracking around the liver and the spleen. There are a few small renal cysts bilaterally. There are no renal stones and there is no hydronephrosis. There is a Deutsch catheter in the urinary bladder and the bladder is nondistended. There is no evidence of bowel obstruction. There is no free abdominal gas. IMPRESSION: 1.Bibasilar atelectasis, worse on the left. Superimposed pneumonia cannot be excluded. 2.Mesenteric stranding that appears to be concentrated around the pancreas. Acute pancreatitis should be considered. 3.Suggestion of mild thickening involving the proximal duodenum. Consider duodenitis. 4.Other incidental/nonacute findings detailed above. Electronically signed by Hasmukh Matos 07/20/2017 3:42 PM
[2017-07-20] MEDS: HUMULIN R SUBQ SCH ×2 (15:57→20:20)
[2017-07-20] MEDS ORDERED: VANCOMYCIN 2,300 MG in NS 500 ML IV ONE (17:00)
[2017-07-20 18:25] LABS: ALLEN TEST YES; BLOOD TYPE ARTERIAL; DRAW SITE L RADIAL; METHB 1.6 % (0.0-1.5); O2(CT) 14.8 mL/dL (15.0-23.0); PO2(98.6) 87 mmHg (60-100); SAMPLE BLOOD; SAO2 98.8 % (95.0-100.0); SRATE 15 BPM; TVOL 500 mL; pH(98.6) 7.48 (7.35-7.45)
[2017-07-20 18:26] LABS: MODALITY VENTILATOR; PCO2(98.6) 53 mmHg (35-45)
--- NOTE | 2017-07-20 18:30 | PROGRESS NOTE ---
DATE: 07/20/2017 Mr. Albrecht had some GI bleeding. He had respiratory distress. He was initially placed on BiPAP and then put on the vent. His sodium was 124, potassium was 3.3 at 11:24. Blood sugars have been around 200. The culture from the right elbow grew gram positive cocci. He is on vancomycin as well as Zosyn. Since he is bleeding stop Lovenox. He is NPO at the present time. He is on IV Protonix today for gastric protection and GI bleeding. cc: Casimiro Reeves MD
[2017-07-20 19:58] LABS: CALCIUM 9.9 mg/dL (8.8-10.2); POTASSIUM 3.7 mmol/L (3.5-5.1)
[2017-07-20] MEDS: CYANOCOBALAMIN IM SCH (20:53)
[2017-07-20] MEDS: VITAMIN C IV SCH (21:10)
[2017-07-20] MEDS: NS IV SCH (21:10)
[2017-07-20] MEDS: THIAMINE 100 MG in NS 50 ML IV SCH (21:13)
[2017-07-21] MEDS: DIPRIVAN 1% 1,000 MG/100 ML BOTTLE IV SCH ×5 (02:07→20:10)
[2017-07-21] MEDS: 1/2 NS 1,000 ML IV SCH ×2 (02:23→05:37)
[2017-07-21] MEDS: VITAMIN C IV SCH ×3 (02:23→16:32)
[2017-07-21] MEDS: NS IV SCH ×3 (02:23→16:32)
[2017-07-21] MEDS: CARDIZEM PO SCH ×4 (02:25→19:52)
[2017-07-21] MEDS: ZOSYN 3.375 GM in NS 50 ML IV SCH ×4 (02:55→20:46)
[2017-07-21] MEDS: HUMULIN R SUBQ SCH ×7 (03:25→23:37)
[2017-07-21] MEDS: DUONEB (A & A) INH SCH ×4 (03:46→19:51)
--- NOTE | 2017-07-21 04:00 | ECHO REPORT ---
ORDER DATE: 07/20/2017 SUMMARY: 1. Technically difficult study due to limited acoustic window quality. 2. Mild aortic valve sclerosis demonstrated with adequate aortic valve opening evident. Mitral, tricuspid and pulmonic valves are without evidence of structural abnormality with trace tricuspid regurgitation and mild pulmonic insufficiency. The aortic root is normal in size. 3. Normal left ventricular dimensions suggested. Estimated left ejection fraction appears to be greater than 70%. No obvious wall motion abnormality can be appreciated. Doppler suggests grade 1 left ventricular diastolic dysfunction. Left atrium, right atrium, and right ventricle are grossly normal in size with grossly preserved right ventricular systolic function. 4. No pericardial effusion. 5. Appearance of the inferior vena cava suggests normal central venous pressure. CONCLUSIONS: 1. Technically difficult study. 2. Mild aortic valve sclerosis without stenosis. 3. Trace tricuspid regurgitation with estimated systolic PA pressure of 25-30 mmHg. 4. Estimated left ventricular ejection fraction greater than 70%. 5. Grade 1 left ventricular diastolic dysfunction. cc: MD Allison Rivas PA Amit V. Vora, MD
[2017-07-21 04:49] LABS: ALLEN TEST YES; BE 7.1 mmoll (-3.0-3.0); BLOOD TYPE ARTERIAL; DRAW SITE R RADIAL; METHB 0.8 % (0.0-1.5); O2(CT) 25.5 mL/dL (15.0-23.0); PO2(98.6) 65 mmHg (60-100); SAMPLE BLOOD; SRATE 15 BPM; THB 19.6 g/dL (11.5-17.4); TVOL 500 mL; pH(98.6) 7.41 (7.35-7.45)
[2017-07-21 04:50] LABS: MODALITY VENTILATOR; PCO2(98.6) 54 mmHg (35-45)
[2017-07-21 06:03] LABS: HEMATOCRIT 29.7 % (42.0-52.0); HEMOGLOBIN 10.6 g/dL (14.0-18.0); MCH 34.6 PG (27-31); MCHC 35.7 g/dL (33-37); MCV 97.1 FL (81-99); MPV 10.1 FL (7.4-10.4); RBC 3.06 XMIL (4.7-6.1)
[2017-07-21 06:46] LABS: ALBUMIN 2.3 g/dL (3.5-5.0); CALCIUM 8.9 mg/dL (8.8-10.2); POTASSIUM 2.9 mmol/L (3.5-5.1); TOTAL BILIRUBIN 0.47 mg/dL (0.20-1.00); TOTAL PROTEIN 4.6 g/dL (6.3-8.3)
--- NOTE | 2017-07-21 07:30 | Diag Imaging Result Doc PS360 ---
EXAM: CHEST-PORTABLE - 07/21/2017 HISTORY: respiratory failure TECHNIQUE: Portable chest 0500 COMPARISON: 07/20/2017 FINDINGS: Endotracheal tube remain in satisfactory position. Nasogastric tube remains, but the distal end of the nasogastric tube is not visible due to technical factors. PICC remains in place. There is subsegmental atelectasis at the lung bases similar to the previous exam. The upper lungs appear grossly clear. There is no substantial pleural effusion or pneumothorax identified. Heart size is stable. IMPRESSION: Mild basilar atelectasis similar to prior. Electronically signed by Yonis Mcneil 07/21/2017 7:28 AM
[2017-07-21] MEDS ORDERED: NS 1,000 ML IV SCH (08:18)
[2017-07-21] MEDS ORDERED: POTASSIUM CHLORIDE 30 MEQ in NS 1,000 ML IV SCH (09:04)
[2017-07-21] MEDS: ASPIRIN EC PO SCH (09:07)
[2017-07-21] MEDS: GLUCOPHAGE PO SCH ×3 (09:07→16:32)
[2017-07-21] MEDS: KLOR-CON PO SCH (09:07)
[2017-07-21] MEDS: CYANOCOBALAMIN IM SCH (09:08)
[2017-07-21] MEDS: PRINZIDE 20/12.5MG PO SCH (09:08)
[2017-07-21] MEDS: LOPRESSOR PO SCH ×2 (09:08→20:10)
[2017-07-21] MEDS: PLAVIX PO SCH (09:08)
--- NOTE | 2017-07-21 09:24 | PROGRESS NOTE ---
DATE: 07/21/2017 SUBJECTIVE: Mr. Albrecht has been stable. He still has some GI bleeding. He is on vent. OBJECTIVE: Lungs: Lungs sound much better. Abdomen: Still distended. Obese. The ischemia is unchanged. LABORATORY DATA: Electrolytes revealed sodium of 118, potassium 2.9, probably the effect from yesterday's Lasix therapy and nasogastric tube suction. White count is 16.83, hemoglobin is 10.6. Blood sugar was 117 this morning. PLAN: Overall condition is unchanged. We will continue to watch him closely. cc: Casimiro Reeves MD
[2017-07-21] MEDS: NS 1,000 ML IV SCH ×2 (10:18→17:20)
--- NOTE | 2017-07-21 10:34 | Diag Imaging Result Doc PS360 ---
EXAM: ELBOW COMPLETE RIGHT - 07/21/2017 HISTORY: draining wound TECHNIQUE: Right elbow three views COMPARISON: None. FINDINGS: There is soft tissue swelling posteriorly. There are mild degenerative changes. There are no erosive or destructive changes identified. There is no fracture or dislocation identified. IMPRESSION: Mild degenerative changes. No visible acute bony abnormality. Please note that early osteomyelitis can be radiographically occult Electronically signed by Yonis Mcneil 07/21/2017 10:32 AM
[2017-07-21] MEDS: POTASSIUM CHLORIDE 40 MEQ/SWI 40 MEQ/100 ML IVPB IV SCH ×2 (10:55→17:19)
[2017-07-21] MEDS: PROTONIX IV SCH (12:14)
[2017-07-21] MEDS ORDERED: VANCOMYCIN 2 GM in NS 500 ML IV SCH (17:00)
[2017-07-21] MEDS: THIAMINE 100 MG in NS 50 ML IV SCH (20:09)
[2017-07-22] MEDS: DIPRIVAN 1% 1,000 MG/100 ML BOTTLE IV SCH ×9 (00:26→22:01)
[2017-07-22] MEDS: CARDIZEM PO SCH ×4 (01:02→21:56)
[2017-07-22] MEDS: NS 1,000 ML IV SCH ×4 (01:31→22:00)
[2017-07-22] MEDS: ZOSYN 3.375 GM in NS 50 ML IV SCH ×4 (02:39→21:54)
[2017-07-22] MEDS: DUONEB (A & A) INH SCH ×4 (03:04→21:00)
[2017-07-22] MEDS: HUMULIN R SUBQ SCH ×6 (03:11→23:36)
[2017-07-22 04:26] LABS: ALLEN TEST YES; BE 5.5 mmoll (-3.0-3.0); BLOOD TYPE ARTERIAL; DRAW SITE R RADIAL; METHB 2.4 % (0.0-1.5); O2(CT) 5.3 mL/dL (15.0-23.0); PCO2(98.6) 43 mmHg (35-45); PO2(98.6) 85 mmHg (60-100); SAMPLE BLOOD; SAO2 100.4 % (95.0-100.0); SRATE 15 BPM; THB 3.8 g/dL (11.5-17.4); TVOL 500 mL; pH(98.6) 7.45 (7.35-7.45)
[2017-07-22 04:27] LABS: MODALITY BI PAP
[2017-07-22 04:57] LABS: HEMATOCRIT 27.1 % (42.0-52.0); HEMOGLOBIN 9.5 g/dL (14.0-18.0); MCH 33.8 PG (27-31); MCHC 35.1 g/dL (33-37); MCV 96.4 FL (81-99); MPV 9.7 FL (7.4-10.4); RBC 2.81 XMIL (4.7-6.1)
[2017-07-22 05:03] LABS: MAGNESIUM 1.8 mg/dL (1.5-2.7)
[2017-07-22 05:24] LABS: ALBUMIN 2.1 g/dL (3.5-5.0); CALCIUM 8.2 mg/dL (8.8-10.2); POTASSIUM 3.2 mmol/L (3.5-5.1); TOTAL BILIRUBIN 0.3 mg/dL (0.20-1.00); TOTAL PROTEIN 4.4 g/dL (6.3-8.3)
--- NOTE | 2017-07-22 07:24 | Diag Imaging Result Doc PS360 ---
CHEST-PORTABLE - 07/22/2017 INDICATION: respiratory failure TECHNIQUE: COMPARISON: 07/21/2017 FINDINGS: Support lines and tubes are stable. There is slight worsening hazy infiltrate at the left lung base. Slight worsening small left basilar pleural effusion. Stable pulmonary vascular congestion. Heart size remains borderline enlarged. IMPRESSION: Slight worsening in aeration at the left lung base. Electronically signed by Sanju Perkins 07/22/2017 7:21 AM
[2017-07-22] MEDS: KLOR-CON PO SCH (09:04)
[2017-07-22] MEDS: CYANOCOBALAMIN IM SCH (09:05)
[2017-07-22] MEDS: GLUCOPHAGE PO SCH ×3 (09:05→18:27)
[2017-07-22] MEDS: PLAVIX PO SCH (09:05)
[2017-07-22] MEDS: ASPIRIN EC PO SCH (09:05)
[2017-07-22] MEDS: PRINZIDE 20/12.5MG PO SCH (09:28)
[2017-07-22] MEDS: LOPRESSOR PO SCH ×2 (09:28→21:56)
[2017-07-22] MEDS: PROTONIX IV SCH (10:28)
[2017-07-22] MEDS: SODIUM CHLORIDE 0.9% INJ SCH (10:28)
[2017-07-22] MEDS ORDERED: SAMSCA PO ONE (10:54)
[2017-07-22] MEDS ORDERED: LASIX IV ONE (10:54)
--- NOTE | 2017-07-22 13:48 | PROGRESS NOTE ---
DATE: 07/22/2017 Mr. Albrecht's vital signs are stable. He continues to be on the vent. His urine output is low. Was seen by Dr. Malin this morning and he ordered 80 mg Lasix IV as well as 10, Samsca 15 mg now to combat the electrolyte because his sodium is 125 this morning, potassium 3.2, both are improving to some extent. Overall prognosis is poor. He has MRSA isolated from the left elbow with the x-ray is negative except for arthritis however osteomyelitis in the early stage cannot be ruled out with a normal x-ray. His chest x-ray shows slight worsening. Overall condition is unchanged. We will continue the current management on him with IV vancomycin as well as Zosyn. cc: Casimiro Reeves MD
[2017-07-22 17:06] LABS: CALCIUM 7.8 mg/dL (8.8-10.2)
--- NOTE | 2017-07-22 17:51 | VASCULAR LAB ---
DATE: 07/19/2017 LOWER EXTREMITY ARTERIAL STUDY AT REST: REFERRING PHYSICIAN: Dr. Starks in the ED. INTERPRETING PHYSICIAN: Dr. Nam. FLOOR FRAMER: Obed. INDICATION: The patient has a purple left great toe. He is a smoker. He has had stents placed in his iliacs in the past. He is diabetic. He is hypertensive. FINDINGS: The brachial pressure is 194. The right low thigh pressure is 182. The right calf pressure 118. Right dorsalis pedis 95. Right posterior tibial 117. Right AB index 0.60. The PVRs do change at the level of the distal thigh. On the left, the low thigh pressure is greater at 205, the left calf 165, left dorsalis pedis 122, left posterior tibial 174 for a left AB index of 0.90. The toe pressures are essentially flat line in the left great toe and the left fifth toe. The toes, 2, 3 and 4 do have pulsatile waveform, on the right there is slight pulsatile flow in the toes 1 through 4 and the small toe on the right is essentially flat line. INTERPRETATION: There is inline flow to the ankle on the left. There is essentially no flow in the #1 and #5 digits on the right foot. There probably is a superficial femoral occlusion and essentially flat line flow to the right fifth toe. cc: MD Casimiro Chopra MD
[2017-07-22] MEDS: NEO-SYNEPHRINE 50 MG in NS 250 ML IV SCH (18:00)
[2017-07-22] MEDS: KLOR-CON PO ONE ×2 (18:26→18:56)
[2017-07-22] MEDS ORDERED: POTASSIUM CHLORIDE 20% LIQUID PO ONE (19:00)
--- NOTE | 2017-07-22 19:23 | Diag Imaging Result Doc PS360 ---
EXAM: CHEST/ABD TUBE PLACEMENT HISTORY: NG placement TECHNIQUE: AP portable upright at 1910 COMMENT: There is an endotracheal tube with its tip slightly below the thoracic inlet and an NG tube with its tip in the stomach. There is blunting of the left costophrenic angle and opacification of the retrocardiac region of the left lower lobe. These findings were also present on the previous study at 0455. IMPRESSION: Left lower lobe atelectasis versus pneumonia with left pleural effusion. Electronically signed by Altaf Butt 07/22/2017 7:21 PM
[2017-07-22] MEDS: THIAMINE 100 MG in NS 50 ML IV SCH (21:52)
[2017-07-23] MEDS: DIPRIVAN 1% 1,000 MG/100 ML BOTTLE IV SCH ×4 (00:35→23:40)
[2017-07-23] MEDS: CARDIZEM PO SCH ×4 (01:23→20:13)
[2017-07-23] MEDS: DUONEB (A & A) INH SCH ×4 (03:05→21:10)
[2017-07-23] MEDS: NS 1,000 ML IV SCH ×5 (03:17→23:40)
[2017-07-23] MEDS: HUMULIN R SUBQ SCH ×6 (03:17→23:39)
[2017-07-23] MEDS: ZOSYN 3.375 GM in NS 50 ML IV SCH ×4 (03:18→21:09)
[2017-07-23 04:22] LABS: ALLEN TEST YES; BE 0.1 mmoll (-3.0-3.0); BLOOD TYPE ARTERIAL; DRAW SITE R RADIAL; METHB 1.1 % (0.0-1.5); O2(CT) 23.3 mL/dL (15.0-23.0); PCO2(98.6) 48 mmHg (35-45); PO2(98.6) 110 mmHg (60-100); SAMPLE BLOOD; SAO2 99.2 % (95.0-100.0); SRATE 15 BPM; THB 17.1 g/dL (11.5-17.4); TVOL 500 mL; pH(98.6) 7.35 (7.35-7.45)
[2017-07-23 04:23] LABS: MODALITY VENTILATOR
[2017-07-23 05:00] LABS: HEMATOCRIT 29.9 % (42.0-52.0); HEMOGLOBIN 10.4 g/dL (14.0-18.0); MCH 34.6 PG (27-31); MCHC 34.8 g/dL (33-37); MCV 99.3 FL (81-99); MPV 9.5 FL (7.4-10.4); RBC 3.01 XMIL (4.7-6.1)
[2017-07-23 05:20] LABS: ALBUMIN 2.2 g/dL (3.5-5.0); CALCIUM 7.6 mg/dL (8.8-10.2); POTASSIUM 3.1 mmol/L (3.5-5.1); TOTAL BILIRUBIN 0.27 mg/dL (0.20-1.00); TOTAL PROTEIN 4.8 g/dL (6.3-8.3)
--- NOTE | 2017-07-23 07:15 | Diag Imaging Result Doc PS360 ---
EXAM: CHEST-PORTABLE HISTORY: respiratory failure TECHNIQUE: Erect AP portable chest at 0500 COMMENT: There is a left pleural effusion and some volume loss in the left with retrocardiac opacity consistent with atelectasis. There is subsegmental atelectasis in the right middle lobe. There is been no significant change since the previous examination of 07/22/2017. The endotracheal tube remains with its tip slightly below the thoracic inlet. The NG tube passes below the diaphragm. IMPRESSION: Atelectasis particularly in the left lower lobe. Left pleural effusion. Electronically signed by Altaf Butt 07/23/2017 7:12 AM
[2017-07-23] MEDS: VANCOMYCIN 2 GM in NS 500 ML IV SCH (08:13)
[2017-07-23] MEDS: PLAVIX PO SCH (09:22)
[2017-07-23] MEDS: ASPIRIN EC PO SCH (09:23)
[2017-07-23] MEDS: GLUCOPHAGE PO SCH ×3 (09:23→16:16)
[2017-07-23] MEDS: LOPRESSOR PO SCH ×2 (09:24→20:13)
[2017-07-23] MEDS: LASIX IV SCH (09:24)
[2017-07-23] MEDS: CYANOCOBALAMIN IM SCH (09:24)
[2017-07-23] MEDS: PRINZIDE 20/12.5MG PO SCH (09:25)
[2017-07-23] MEDS: POTASSIUM CHLORIDE 10% LIQUID PO SCH (09:25)
[2017-07-23] MEDS: HALDOL IV PRN (11:13)
[2017-07-23 11:36] LABS: ALLEN TEST YES; BLOOD TYPE ARTERIAL; DRAW SITE R RADIAL; METHB 0.8 % (0.0-1.5); O2(CT) 15.8 mL/dL (15.0-23.0); PO2(98.6) 72 mmHg (60-100); SAMPLE BLOOD; THB 11.9 g/dL (11.5-17.4); pH(98.6) 7.28 (7.35-7.45)
[2017-07-23 11:39] LABS: MODALITY VENTILATOR
[2017-07-23 11:40] LABS: PCO2(98.6) 54 mmHg (35-45)
[2017-07-23] MEDS: SODIUM CHLORIDE 0.9% INJ SCH (11:58)
[2017-07-23] MEDS: PROTONIX IV SCH (11:58)
[2017-07-23] MEDS ORDERED: ALBUMIN 25% IV ONE (12:28)
[2017-07-23] MEDS ORDERED: MAGNESIUM SULFATE 2 GM/S.W.I. 2 GM/50 ML IVPB IV ONE (12:32)
[2017-07-23] MEDS ORDERED: POTASSIUM CHLORIDE 40 MEQ/SWI 40 MEQ/100 ML IVPB IV ONE (12:32)
--- NOTE | 2017-07-23 13:10 | PROGRESS NOTE ---
DATE: 07/23/2017 SUBJECTIVE: Mr. Albrecht is sedated. He is currently on the ventilator. Apparently, the patient was awake this morning and underwent a weaning trial but did not succeed. PHYSICAL EXAMINATION: It appears for the last 24 hours he has been afebrile. Heart rates in the 60s to 70s. His systolic blood pressures have been predominantly in the 100s-120s and it appears his I's and O's for the course of the hospitalization have been positive 12.7 L. Generally, he is in no acute distress. Again, he is sedated. Cardiovascularly, he sounds to be in a regular rate and rhythm. Presently, he has no murmurs. He has marked edema diffusely consistent with anasarca. Warm and well-perfused lower extremities. His chest exam is somewhat difficult but bilateral mechanical breath sounds are heard throughout all lung zapata. His abdomen is soft, nontender. Minimal bowel sounds were heard. PERTINENT DATA: White count 9.7 which continues to trend down over the last few days. Hematocrit 29.9, platelet count 286,000. His ABG was reviewed. Sodium is 130 which is up from 124, potassium is 3.1, his BUN is 21,, creatinine is 1.8, albumin today is 2.2. ASSESSMENT: 1. Coronary artery disease. 2. Diastolic heart failure. 3. Chronic obstructive pulmonary disease. 4. History of peripheral vascular disease. 5. Hyponatremia. 6. Methicillin-resistant Staphylococcus aureus infection. PLAN: We will check a BMP in the morning. We will continue on the current dose of diuretics. I will decrease his normal saline to 60 mL an hour. If the patient is markedly positive, we will give him a little bit albumin as well. He did have some oral potassium yesterday. He does not appear to have gotten any potassium this morning. His potassium is 3.1 today, magnesium of 1.8. His creatinine is 1.8. I will give him 40 mEq of IV potassium along with 2 g of magnesium. cc: MD Casimiro Baez MD
--- NOTE | 2017-07-23 16:36 | PROGRESS NOTE ---
DATE: 07/23/2017 Mr. Albrecht is still dependent on the respirator. His heart rate around 110, blood pressure is stable . He has been off Tyson-Synephrine now. His lungs still reveal some congestion. Abdomen distended. Vascular flow study results are noted. The leg circulation is about the same. He had some GI bleeding to his NG tube. ABGs this morning revealed pH 7.28, pCO2 was 54, PO2 is 72 and he is on 50% FiO2. LAB DATA: White count of 9.79 which is down significantly,0 hemoglobin is 10.4, hematocrit is 29.9. His potassium is 3.1, sodium is 130. Overall condition is stable. Will continue with the current management. cc: Casimiro Reeves MD
[2017-07-23] MEDS: THIAMINE 100 MG in NS 50 ML IV SCH (20:04)
[2017-07-24] MEDS: CARDIZEM PO SCH ×4 (01:13→21:25)
[2017-07-24] MEDS: DUONEB (A & A) INH SCH ×4 (03:20→21:10)
[2017-07-24] MEDS: HUMULIN R SUBQ SCH ×5 (03:45→20:45)
[2017-07-24] MEDS: ZOSYN 3.375 GM in NS 50 ML IV SCH ×4 (03:46→21:36)
[2017-07-24] MEDS: DIPRIVAN 1% 1,000 MG/100 ML BOTTLE IV SCH ×4 (03:55→21:36)
[2017-07-24 04:28] LABS: ALLEN TEST YES; BLOOD TYPE ARTERIAL; DRAW SITE R RADIAL; METHB 1.2 % (0.0-1.5); O2(CT) 14.6 mL/dL (15.0-23.0); PCO2(98.6) 42 mmHg (35-45); PO2(98.6) 72 mmHg (60-100); SAMPLE BLOOD; SAO2 97.6 % (95.0-100.0); SRATE 15 BPM; THB 10.9 g/dL (11.5-17.4); TVOL 500 mL
[2017-07-24 04:30] LABS: MODALITY VENTILATOR
[2017-07-24 04:34] LABS: HEMATOCRIT 27.2 % (42.0-52.0); HEMOGLOBIN 9.3 g/dL (14.0-18.0); MCH 33.8 PG (27-31); MCHC 34.2 g/dL (33-37); MCV 98.9 FL (81-99); RBC 2.75 XMIL (4.7-6.1)
[2017-07-24 04:46] LABS: ALBUMIN 2.6 g/dL (3.5-5.0); CALCIUM 8.2 mg/dL (8.8-10.2); POTASSIUM 3.1 mmol/L (3.5-5.1); TOTAL BILIRUBIN 0.23 mg/dL (0.20-1.00); TOTAL PROTEIN 5.1 g/dL (6.3-8.3)
[2017-07-24] MEDS: NS 1,000 ML IV SCH ×3 (06:06→21:27)
--- NOTE | 2017-07-24 07:01 | Diag Imaging Result Doc PS360 ---
EXAM: CHEST-PORTABLE HISTORY: respiratory failure TECHNIQUE: Erect AP portable at 0525 COMMENT: There is an endotracheal tube with its tip 4 cm above the juana and an NG tube which passes below the diaphragm. There is a right-sided PIC line. There is apparent left pleural effusion and lower lobe atelectasis. This has not changed appreciably since the previous study of 07/23/2017. IMPRESSION: Atelectasis and left pleural effusion. Electronically signed by Altaf Butt 07/24/2017 6:58 AM
[2017-07-24] MEDS: LASIX IV SCH (08:00)
[2017-07-24] MEDS: PLAVIX PO SCH (08:00)
[2017-07-24] MEDS: CYANOCOBALAMIN IM SCH (08:00)
[2017-07-24] MEDS: ASPIRIN EC PO SCH (08:00)
[2017-07-24] MEDS: POTASSIUM CHLORIDE 10% LIQUID PO SCH (08:00)
[2017-07-24] MEDS: GLUCOPHAGE PO SCH ×3 (08:01→17:46)
[2017-07-24] MEDS: PRINZIDE 20/12.5MG PO SCH (09:31)
[2017-07-24] MEDS: LOPRESSOR PO SCH ×2 (09:31→21:27)
[2017-07-24 10:45] LABS: ALLEN TEST YES; BE 0.1 mmoll (-3.0-3.0); BLOOD TYPE ARTERIAL; DRAW SITE R RADIAL; METHB 1.1 % (0.0-1.5); PO2(98.6) 68 mmHg (60-100); SAMPLE BLOOD; SAO2 96.5 % (95.0-100.0); THB 11.4 g/dL (11.5-17.4); pH(98.6) 7.32 (7.35-7.45)
[2017-07-24 10:47] LABS: MODALITY VENTILATOR; PCO2(98.6) 52 mmHg (35-45)
[2017-07-24] MEDS: SODIUM CHLORIDE 0.9% INJ SCH (11:54)
[2017-07-24] MEDS: PROTONIX IV SCH (11:54)
--- NOTE | 2017-07-24 12:01 | PROGRESS NOTE ---
DATE: 07/24/2017 Mr. Albrecht is somewhat short of breath this morning. He is getting weaning trial to wean him off the ventilator. His ABGs this morning revealed pH of 7.32, pCO2 of 52, pO2 was 68 at 50% FiO2 on the vent. His other lab data showed CBC unremarkable. Potassium was 3.1. BUN was 19, creatinine 1.5. He still appears very congested. He had some greenish stools this morning. Circulatory status of both lower extremities is unchanged. Overall prognosis appears poor. We will watch him closely here in the ICU. -1 cc: Casimiro Reeves MD
--- NOTE | 2017-07-24 12:54 | PROGRESS NOTE ---
DATE: 07/24/2017 SUBJECTIVE: Mr. Albrecht continues to be sedated. He is not responsive to physical stimuli. He is on the ventilator. PHYSICAL EXAMINATION: He is afebrile. For the last 24 hours his heart rates have been in the 60s to 90s. Systolic blood pressures have been in the 100s to 140s primarily. His I's and O's of the last 24 hours were almost matched. General: He is in no acute distress. Cardiovascular: He is in a regular rate and rhythm, no murmurs. He has evidence for anasarca. Warm and well perfused lower extremities. His chest exam sounds relatively clear. Mechanical breath sounds are heard throughout all lung zapata. Abdomen is soft, nontender. PERTINENT DATA: His white count is 8.5, hematocrit 27, platelet count 384. Sodium is 135, which is improved. His potassium is 3.1, which is stable. BUN 91, creatinine 1.5. His magnesium level is 2.1. ASSESSMENT: 1. Diastolic heart failure. 2. Methicillin-resistant Staphylococcus aureus infection. 3. Coronary artery disease. 4. Chronic obstructive pulmonary disease. 5. Respiratory failure. PLAN: I have repleted his potassium. His magnesium looks improved. His I's and O's appear to be relatively matched. We will continue on the current regimen for now. cc: MD Casimiro Baez MD
[2017-07-24] MEDS: POTASSIUM CHLORIDE 40 MEQ/SWI 40 MEQ/100 ML IVPB IV SCH ×2 (13:32→21:38)
[2017-07-24] MEDS ORDERED: CALMOSEPTINE OINTMENT TOP PRN (17:38)
[2017-07-24] MEDS ORDERED: LOMOTIL PO PRN ×2 (18:15→18:24)
[2017-07-24] MEDS: VANCOMYCIN 2 GM in NS 500 ML IV SCH (21:26)
[2017-07-24] MEDS: THIAMINE 100 MG in NS 50 ML IV SCH (21:35)
[2017-07-25] MEDS: DIPRIVAN 1% 1,000 MG/100 ML BOTTLE IV SCH ×9 (00:15→21:18)
[2017-07-25] MEDS: HUMULIN R SUBQ SCH ×6 (01:26→20:40)
[2017-07-25] MEDS: CARDIZEM PO SCH ×4 (01:41→20:31)
[2017-07-25] MEDS: ZOSYN 3.375 GM in NS 50 ML IV SCH ×4 (02:30→20:31)
[2017-07-25] MEDS: DUONEB (A & A) INH SCH ×4 (03:30→19:33)
[2017-07-25 04:47] LABS: ALLEN TEST YES; BE 1.5 mmoll (-3.0-3.0); BLOOD TYPE ARTERIAL; DRAW SITE R RADIAL; METHB 0.5 % (0.0-1.5); MODALITY VENTILATOR; O2(CT) 13.2 mL/dL (15.0-23.0); PCO2(98.6) 39 mmHg (35-45); PO2(98.6) 102 mmHg (60-100); SAMPLE BLOOD; SAO2 99.8 % (95.0-100.0); SRATE 15 BPM; THB 9.5 g/dL (11.5-17.4); TVOL 500 mL; pH(98.6) 7.43 (7.35-7.45)
[2017-07-25 06:29] LABS: HEMOGLOBIN 9.1 g/dL (14.0-18.0); MCH 33.8 PG (27-31); MCHC 32.5 g/dL (33-37); MCV 104.1 FL (81-99); RBC 2.69 XMIL (4.7-6.1)
[2017-07-25 06:40] LABS: ALBUMIN 2.6 g/dL (3.5-5.0); CALCIUM 8.1 mg/dL (8.8-10.2); POTASSIUM 3.4 mmol/L (3.5-5.1); TOTAL BILIRUBIN 0.2 mg/dL (0.20-1.00); TOTAL PROTEIN 5.1 g/dL (6.3-8.3)
--- NOTE | 2017-07-25 07:12 | Diag Imaging Result Doc PS360 ---
EXAM: CHEST-PORTABLE HISTORY: respiratory failure TECHNIQUE: AP portable upright at 0440 COMMENT: There are bilateral pleural effusions. This is worse than on 07/24/2017. Hazy opacity is present over both lower lung zapata consistent with pulmonary edema. This is also worse particularly over the right lower lobe. There is an endotracheal tube with its tip at the thoracic inlet and an NG tube which appears to pass below the diaphragm. IMPRESSION: Worsening pulmonary edema and pleural effusions. Electronically signed by Altaf Butt 07/25/2017 7:09 AM
[2017-07-25] MEDS: LOPRESSOR PO SCH ×2 (09:41→20:31)
[2017-07-25] MEDS: PRINZIDE 20/12.5MG PO SCH (09:41)
[2017-07-25] MEDS: PLAVIX PO SCH (09:42)
[2017-07-25] MEDS: LASIX IV SCH ×3 (09:42→20:28)
[2017-07-25] MEDS: ASPIRIN EC PO SCH (09:42)
[2017-07-25] MEDS: GLUCOPHAGE PO SCH ×3 (09:42→17:43)
[2017-07-25] MEDS: POTASSIUM CHLORIDE 10% LIQUID PO SCH (09:43)
[2017-07-25] MEDS ORDERED: POTASSIUM CHLORIDE 60 MEQ in NS 500 ML IV ONE (11:00)
--- NOTE | 2017-07-25 11:39 | PROGRESS NOTE ---
DATE: 07/25/2017 SUBJECTIVE: Interval history was obtained. In brief, he is a 71-year-old white male who was admitted to the hospital on 07/19/2017 with abdominal pain due to pancreatitis and duodenitis. Subsequently, he had diastolic heart failure, respiratory insufficiency and intubated. The patient was consulted by Dr. Gentile and Dr. Ordonez. The patient is on the vent , on propofol drip. MEDICATIONS: Reviewed. REVIEW OF SYSTEMS: Unable to obtain. The patient is sedated. EXAMINATION: general: He is on a ventilator support, sedated. Vital signs: Temperature is 97 degrees, pulse is 67, blood pressure is 126/62, 95% on room air. Inputs and outputs are even. HEENT: Sedated. He has an ET tube. NG tube was placed. NG tube was connected to low-wall suction. Chest: Clear to auscultation. Heart: Sounds are regular. Abdomen: Belly is soft, nontender. Good bowel sounds. Extremities: No peripheral edema, on antithrombotic stockings. Neurological: Unable to assess. Extremities: He had a PICC line on the right side. genitourinary/rectal: Deutsch catheter and rectal tube were placed. Skin: Ecchymotic on the upper extremities. INVESTIGATIONS: CBC: White cell count 8.9, hematocrit 28, MCV 104, platelets 454,000. ABG on ventilator support: PH 7.43, pCO2 39 PO2 102 on FiO2 50%. Spontaneous rate is 15, tidal volume 500, PEEP of 5. SMA 7: Sodium 140, potassium 3.4, chloride 102, BUN 16, creatinine 1.4, glucose 149. LFTs were normal. Albumin is 2.6. Microbiology 08/14/2017: C. difficile toxin is negative. Elbow is Staph aureus, MRSA. Sputum cultures: Staphylococcus intermedius. Blood cultures were negative. ASSESSMENT AND PLAN: 1. Central nervous system: He is under sedation with propofol. 2. Acute respiratory failure, on vent support. He is under sedation, weaning as per Dr. Ordonez. 3. Coronary artery disease with a stent, and diastolic heart failure. Input and outputs are even. Discontinue IV fluids. Change to the ProcalAmine for nutrition with 60 mL/hour. 4. Hypokalemia. Potassium 3.4, replace IV _through the PICC line. 5. Hyponatremia, azotemia improving. 6. Methicillin-resistant Staphylococcus aureus with cellulitis on the elbows. Normal white cell count. On IV vancomycin and Zosyn. 7. Type 2 diabetes, on metformin and sliding-scale. 8. Coronary artery disease, on aspirin and Plavix, Metoprolol 50 p.o. b.i.d. 9. Diarrhea, rule out clostridium difficile. 1. Gastrointestinal prophylaxis with IV Protonix. 2. Deep venous thrombosis prophylaxis with antithrombotic stockings. 3. Anemia, probably due to chronic disease, stable. LEVEL OF DOCUMENTATION: 35 minutes. cc: MD Casimiro Lazaro MD MTDD
[2017-07-25] MEDS: CLINIMIX E 4.25%-5% SOLUTION 1,000 ML IV SCH (11:40)
[2017-07-25] MEDS: SODIUM CHLORIDE 0.9% INJ SCH (11:40)
[2017-07-25] MEDS: PROTONIX IV SCH (11:41)
--- NOTE | 2017-07-25 11:47 | PROGRESS NOTE ---
DATE: 07/25/2017 SUBJECTIVE: Mr. Albrecht continues on the ventilator. He is sedated. PHYSICAL EXAMINATION: Vital Signs: He is afebrile presently. Heart rate of 66, blood pressure 96/58. His input and output have been more matched over the last 48 hours. Cumulative for the hospitalization have been positive 13 liters. General: He is in no acute distress. Cardiovascular: He sounds to be in a regular rate and rhythm. He has no murmurs. He has 1+ lower extremity edema. Notably, he has a dark and discolored left great toe. Chest: Exam is relatively clear with mechanical breath sounds heard throughout. Abdomen: Soft, nontender. PERTINENT DATA: Sodium 140, potassium 3.4, BUN 16, creatinine is 1.4. His ABG was reviewed and has a similar A-a gradient to yesterday. His white count is 8.9, which is stable. ASSESSMENT: 1. Diastolic heart failure. 2. Peripheral vascular disease. 3. Methicillin-resistant Staphylococcus aureus infection. 4. Respiratory failure. PLAN: The patient's renal function seems to be stable. His respiratory status seems to be stable as well, maintaining on a 50% FiO2 with a stable A-a gradient. His input and output appear relatively matched over the last couple of days. His potassium has already been replenished by the primary team. At this point, I have no further recommendations. His previous system developer associate manager following him during this hospitalization, Dr. Malin, will be back to see the patient in the morning. cc: MD Casimiro Baez MD
[2017-07-25] MEDS: THIAMINE 100 MG in NS 50 ML IV SCH (20:30)
[2017-07-26] MEDS: DIPRIVAN 1% 1,000 MG/100 ML BOTTLE IV SCH ×7 (00:05→21:13)
[2017-07-26] MEDS: HUMULIN R SUBQ SCH ×6 (00:13→21:42)
[2017-07-26] MEDS: ZOSYN 3.375 GM in NS 50 ML IV SCH ×4 (02:18→21:13)
[2017-07-26] MEDS: LASIX IV SCH ×3 (02:18→21:10)
[2017-07-26] MEDS: CARDIZEM PO SCH ×4 (02:18→21:10)
[2017-07-26] MEDS: DUONEB (A & A) INH SCH ×4 (03:56→21:01)
[2017-07-26 04:47] LABS: HEMATOCRIT 28.5 % (42.0-52.0); HEMOGLOBIN 9.2 g/dL (14.0-18.0); MCH 33.9 PG (27-31); MCHC 32.3 g/dL (33-37); MCV 105.2 FL (81-99); MPV 8.8 FL (7.4-10.4); RBC 2.71 XMIL (4.7-6.1)
[2017-07-26 04:54] LABS: MAGNESIUM 1.7 mg/dL (1.5-2.7)
[2017-07-26 04:55] LABS: ALLEN TEST YES; BE 1.9 mmoll (-3.0-3.0); BLOOD TYPE ARTERIAL; DRAW SITE R RADIAL; MODALITY VENTILATOR; O2(CT) 23.1 mL/dL (15.0-23.0); PCO2(98.6) 41 mmHg (35-45); PO2(98.6) 84 mmHg (60-100); SAMPLE BLOOD; SAO2 98.5 % (95.0-100.0); SRATE 15 BPM; THB 17.2 g/dL (11.5-17.4); TVOL 500 mL; pH(98.6) 7.42 (7.35-7.45)
[2017-07-26 04:56] LABS: ALBUMIN 2.7 g/dL (3.5-5.0); CALCIUM 8.5 mg/dL (8.8-10.2); POTASSIUM 3.4 mmol/L (3.5-5.1); TOTAL BILIRUBIN 0.17 mg/dL (0.20-1.00); TOTAL PROTEIN 5.2 g/dL (6.3-8.3)
[2017-07-26] MEDS: CLINIMIX E 4.25%-5% SOLUTION 1,000 ML IV SCH (05:57)
--- NOTE | 2017-07-26 07:17 | Diag Imaging Result Doc PS360 ---
EXAM: CHEST-PORTABLE HISTORY: respiratory failure TECHNIQUE: Upright AP portable at 0450 COMMENT: There is hazy opacity over both lower lung zapata with obscuration of the hemidiaphragms and costophrenic angles. This has not changed significantly since 07/25/2017. IMPRESSION: Pulmonary edema and pleural effusions. Electronically signed by Altaf Butt 07/26/2017 7:14 AM
[2017-07-26] MEDS: GLUCOPHAGE PO SCH ×3 (08:07→16:38)
[2017-07-26] MEDS: PLAVIX PO SCH (08:07)
[2017-07-26] MEDS: POTASSIUM CHLORIDE 10% LIQUID PO SCH (08:07)
[2017-07-26] MEDS: ASPIRIN EC PO SCH (08:08)
[2017-07-26] MEDS: LOPRESSOR PO SCH ×3 (08:09→21:11)
[2017-07-26] MEDS: PRINZIDE 20/12.5MG PO SCH (08:09)
--- NOTE | 2017-07-26 09:31 | PROGRESS NOTE ---
DATE: 07/26/2017 SUBJECTIVE: Mr. Albrecht continues to be dependent on the respirator. His vital signs are stable. He is off Levophed and continues to have some watery stools. He is under sedation at the moment on account of the ventilator. OBJECTIVE: Lungs: Lungs revealed some basal congestion. Abdomen: Soft, nontender. Extremities: Circulation problems in the lower extremities is unchanged. LABS/X-RAYS: We tried to wean him off over the weekend and the trial was not successful. His blood gases look okay. Chest x-ray shows bilateral pleural effusions. ASSESSMENT/PLAN: Overall condition is otherwise unchanged. We are treating him symptomatically for diarrhea. cc: Casimiro Reeves MD
[2017-07-26] MEDS: VANCOMYCIN 2 GM in NS 500 ML IV SCH (09:41)
[2017-07-26] MEDS: PROTONIX IV SCH (11:14)
[2017-07-26] MEDS: SODIUM CHLORIDE 0.9% INJ SCH (11:14)
[2017-07-26] MEDS ORDERED: POTASSIUM CHLORIDE 20% LIQUID PO ONE (19:42)
[2017-07-26] MEDS: THIAMINE 100 MG in NS 50 ML IV SCH (21:02)
[2017-07-26] MEDS: LOVENOX SUBQ SCH (21:10)
[2017-07-27] MEDS: HUMULIN R SUBQ SCH ×6 (00:21→20:15)
[2017-07-27] MEDS: CARDIZEM PO SCH ×4 (01:25→20:09)
[2017-07-27] MEDS: DIPRIVAN 1% 1,000 MG/100 ML BOTTLE IV SCH ×9 (01:25→21:50)
[2017-07-27] MEDS: LASIX IV SCH ×3 (01:25→20:50)
[2017-07-27] MEDS: DUONEB (A & A) INH SCH ×4 (03:27→19:44)
[2017-07-27] MEDS: ZOSYN 3.375 GM in NS 50 ML IV SCH ×4 (03:45→20:09)
[2017-07-27] MEDS: CLINIMIX E 4.25%-5% SOLUTION 1,000 ML IV SCH ×2 (03:47→09:28)
[2017-07-27 05:13] LABS: ALLEN TEST YES; BE 4.2 mmoll (-3.0-3.0); BLOOD TYPE ARTERIAL; DRAW SITE R RADIAL; METHB 0.8 % (0.0-1.5); O2(CT) 24.4 mL/dL (15.0-23.0); PCO2(98.6) 43 mmHg (35-45); PO2(98.6) 55 mmHg (60-100); SAMPLE BLOOD; SAO2 93.6 % (95.0-100.0); SRATE 15 BPM; THB 19.4 g/dL (11.5-17.4); TVOL 500 mL; pH(98.6) 7.44 (7.35-7.45)
[2017-07-27 05:17] LABS: MODALITY VENTILATOR
[2017-07-27 06:30] LABS: HEMATOCRIT 29.5 % (42.0-52.0); HEMOGLOBIN 9.6 g/dL (14.0-18.0); MCHC 32.5 g/dL (33-37); MCV 104.6 FL (81-99); RBC 2.82 XMIL (4.7-6.1)
[2017-07-27 06:34] LABS: ALBUMIN 2.6 g/dL (3.5-5.0); CALCIUM 8.5 mg/dL (8.8-10.2); POTASSIUM 3.5 mmol/L (3.5-5.1); TOTAL BILIRUBIN 0.15 mg/dL (0.20-1.00); TOTAL PROTEIN 5.3 g/dL (6.3-8.3)
--- NOTE | 2017-07-27 07:17 | Diag Imaging Result Doc PS360 ---
EXAM: CHEST-PORTABLE HISTORY: respiratory failure TECHNIQUE: Erect AP portable at 0445 COMMENT: There is an endotracheal tube with its tip slightly below the thoracic inlet. There is an NG tube which passes below the diaphragm. There are patchy alveolar opacities particularly in the lower lung zapata particularly on the left. This has not changed appreciably since 07/26/2017. IMPRESSION: Pulmonary edema and/or pneumonia. Electronically signed by Altaf Butt 07/27/2017 7:14 AM
[2017-07-27] MEDS: POTASSIUM CHLORIDE 10% LIQUID PO SCH (09:04)
[2017-07-27] MEDS: PLAVIX PO SCH (09:05)
[2017-07-27] MEDS: GLUCOPHAGE PO SCH ×3 (09:05→17:00)
[2017-07-27] MEDS: ASPIRIN EC PO SCH (09:05)
[2017-07-27] MEDS: LOPRESSOR PO SCH ×2 (09:54→20:09)
[2017-07-27] MEDS: PRINZIDE 20/12.5MG PO SCH (09:54)
--- NOTE | 2017-07-27 11:06 | PROGRESS NOTE ---
DATE: 07/27/2017 Mr. Albrecht's vital signs revealed temperature 99.4 degrees, blood pressure 154/68. He is off of the blood pressure agents. He is on the ventilator, and he is getting the NG tube feeding, Clinimix, as well as antibiotics. The lab data today shows CBC is stable, hemoglobin 9.6 and white count 10.22. Electrolytes are stable with potassium 3.5, sodium of 142. BUN is down to 24, creatinine 1.3. Blood gases revealed pH 7.44, pCO2 of 43, PO2 of 55, and oxyhemoglobin was 89.9. His chest x-ray done this morning reveals the pulmonary edema and pneumonia. There is not much changed from the previous one. He gets a Jevity feeding at 30 mL/hour. His overall condition is unchanged. We tried a weaning trial yesterday, which did not work. We will continue the current management. cc: Casimiro Reeves MD
[2017-07-27] MEDS: SODIUM CHLORIDE 0.9% INJ SCH (11:38)
[2017-07-27] MEDS: PROTONIX IV SCH (11:38)
[2017-07-27] MEDS: LOVENOX SUBQ SCH (20:09)
[2017-07-27] MEDS: THIAMINE 100 MG in NS 50 ML IV SCH (20:09)
[2017-07-27] MEDS: VANCOMYCIN 2 GM in NS 500 ML IV SCH (20:59)
[2017-07-28] MEDS: CLINIMIX E 4.25%-5% SOLUTION 1,000 ML IV SCH ×3 (00:21→19:12)
[2017-07-28] MEDS: HUMULIN R SUBQ SCH ×6 (00:22→20:21)
[2017-07-28] MEDS: DIPRIVAN 1% 1,000 MG/100 ML BOTTLE IV SCH ×11 (00:27→22:23)
[2017-07-28] MEDS: CARDIZEM PO SCH ×4 (02:59→20:11)
[2017-07-28] MEDS: ZOSYN 3.375 GM in NS 50 ML IV SCH ×4 (03:07→20:11)
[2017-07-28] MEDS: DUONEB (A & A) INH SCH ×4 (03:27→21:00)
[2017-07-28 04:23] LABS: ALLEN TEST YES; BE 6.8 mmoll (-3.0-3.0); BLOOD TYPE ARTERIAL; DRAW SITE R RADIAL; METHB 1.1 % (0.0-1.5); O2(CT) 14.8 mL/dL (15.0-23.0); PCO2(98.6) 47 mmHg (35-45); PO2(98.6) 64 mmHg (60-100); SAMPLE BLOOD; SRATE 15 BPM; THB 11.4 g/dL (11.5-17.4); TVOL 500 mL; pH(98.6) 7.44 (7.35-7.45)
[2017-07-28 04:25] LABS: MODALITY VENTILATOR
[2017-07-28] MEDS: LASIX IV SCH ×2 (04:32→08:37)
[2017-07-28 05:18] LABS: HEMATOCRIT 28.8 % (42.0-52.0); HEMOGLOBIN 9.4 g/dL (14.0-18.0); MCH 33.1 PG (27-31); MCHC 32.6 g/dL (33-37); MCV 101.4 FL (81-99); MPV 8.9 FL (7.4-10.4); RBC 2.84 XMIL (4.7-6.1)
[2017-07-28 05:43] LABS: ALBUMIN 2.6 g/dL (3.5-5.0); CALCIUM 8.7 mg/dL (8.8-10.2); POTASSIUM 2.9 mmol/L (3.5-5.1); TOTAL BILIRUBIN 0.14 mg/dL (0.20-1.00); TOTAL PROTEIN 5.2 g/dL (6.3-8.3)
--- NOTE | 2017-07-28 07:27 | Diag Imaging Result Doc PS360 ---
CHEST-PORTABLE - 07/28/2017 INDICATION: respiratory failure TECHNIQUE: COMPARISON: 07/27/2017 FINDINGS: Support lines and tubes are stable. Stable cardiomegaly and pulmonary vascular congestion. Stable bibasilar infiltrates left greater than right. Stable widening of the mediastinum at the pablo. IMPRESSION: No change from prior. Electronically signed by Sanju Perkins 07/28/2017 7:24 AM
[2017-07-28] MEDS: GLUCOPHAGE PO SCH ×3 (07:37→17:00)
[2017-07-28] MEDS: ASPIRIN EC PO SCH (08:36)
[2017-07-28] MEDS: PLAVIX PO SCH (08:36)
[2017-07-28] MEDS: POTASSIUM CHLORIDE 10% LIQUID PO SCH (08:37)
[2017-07-28] MEDS ORDERED: POTASSIUM CHLORIDE 40 MEQ/SWI 40 MEQ/100 ML IVPB IV ONE (10:05)
[2017-07-28] MEDS: PRINZIDE 20/12.5MG PO SCH (10:08)
[2017-07-28] MEDS: LOPRESSOR PO SCH ×2 (10:08→20:11)
--- NOTE | 2017-07-28 11:29 | PROGRESS NOTE ---
DATE: 07/28/2017 SUBJECTIVE: Mr. Albrecht is still dependent on the respirator. We tried to wean him yesterday and we could not give him a fair trial because he could not be without the respirator for even a few minutes. His lungs are still congested. Abdomen is soft. He continues to have continuous outputting of the stool material unchanged. CBC is unremarkable. Hemoglobin 28.8. ABGs revealed pH 7.44, pCO2 47, PO2 is 64. Chemistry reveals hypokalemia. Potassium is 2.9. Overall condition is unchanged. We will give some extra potassium today. -0 cc: Casimiro Reeves MD
[2017-07-28] MEDS: SODIUM CHLORIDE 0.9% INJ SCH (12:03)
[2017-07-28] MEDS: PROTONIX IV SCH (12:03)
[2017-07-28] MEDS ORDERED: LASIX IV ONE (14:00)
[2017-07-28] MEDS: LOVENOX SUBQ SCH (20:11)
[2017-07-28] MEDS: THIAMINE 100 MG in NS 50 ML IV SCH (20:20)
[2017-07-28] MEDS ORDERED: POTASSIUM CHLORIDE 10% LIQUID PO SCH (21:00)
[2017-07-29] MEDS: DIPRIVAN 1% 1,000 MG/100 ML BOTTLE IV SCH ×10 (00:17→22:04)
[2017-07-29] MEDS: HUMULIN R SUBQ SCH ×6 (00:49→21:50)
[2017-07-29] MEDS: DUONEB (A & A) INH SCH ×4 (03:00→19:29)
[2017-07-29] MEDS: ZOSYN 3.375 GM in NS 50 ML IV SCH ×4 (03:59→21:48)
[2017-07-29] MEDS: CLINIMIX E 4.25%-5% SOLUTION 1,000 ML IV SCH ×2 (04:07→16:00)
[2017-07-29 04:34] LABS: ALLEN TEST YES; BE 9.6 mmoll (-3.0-3.0); BLOOD TYPE ARTERIAL; DRAW SITE R RADIAL; METHB 0.8 % (0.0-1.5); O2(CT) 15.5 mL/dL (15.0-23.0); PCO2(98.6) 46 mmHg (35-45); PO2(98.6) 59 mmHg (60-100); SAMPLE BLOOD; SAO2 94.5 % (95.0-100.0); SRATE 12 BPM; THB 12.1 g/dL (11.5-17.4); TVOL 500 mL; pH(98.6) 7.48 (7.35-7.45)
[2017-07-29 04:36] LABS: MODALITY VENTILATOR
[2017-07-29 05:50] LABS: HEMATOCRIT 29.5 % (42.0-52.0); HEMOGLOBIN 9.8 g/dL (14.0-18.0); MCH 33.8 PG (27-31); MCHC 33.2 g/dL (33-37); MCV 101.7 FL (81-99); MPV 9.3 FL (7.4-10.4); RBC 2.9 XMIL (4.7-6.1)
[2017-07-29 06:10] LABS: ALBUMIN 2.7 g/dL (3.5-5.0); CALCIUM 8.6 mg/dL (8.8-10.2); POTASSIUM 3.3 mmol/L (3.5-5.1); TOTAL BILIRUBIN 0.22 mg/dL (0.20-1.00); TOTAL PROTEIN 5.4 g/dL (6.3-8.3)
--- NOTE | 2017-07-29 07:50 | Diag Imaging Result Doc PS360 ---
EXAM: CHEST-PORTABLE - 07/29/2017 HISTORY: respiratory failure TECHNIQUE: Portable chest 0500 COMPARISON: 07/28/2017 FINDINGS: Endotracheal tube, nasogastric tube, and PICC remain in place. There is been interval decrease in infiltrate and/or atelectasis at the right base. Infiltrate left base appears grossly stable. There is no pneumothorax identified. Heart size appears upper normal. IMPRESSION: Decrease in right basilar infiltrate/atelectasis. Stable infiltrate at left base. Electronically signed by Yonis Mcneil 07/29/2017 7:48 AM
[2017-07-29] MEDS: CARDIZEM PO SCH ×2 (08:53→21:48)
[2017-07-29] MEDS: LOPRESSOR PO SCH ×2 (08:53→23:08)
[2017-07-29] MEDS: PRINZIDE 20/12.5MG PO SCH (08:53)
[2017-07-29] MEDS: POTASSIUM CHLORIDE 20% LIQUID PO SCH (08:53)
[2017-07-29] MEDS: PLAVIX PO SCH (08:53)
[2017-07-29] MEDS: VANCOMYCIN 2 GM in NS 500 ML IV SCH (08:54)
[2017-07-29] MEDS: ASPIRIN EC PO SCH (08:54)
[2017-07-29] MEDS: GLUCOPHAGE PO SCH ×3 (08:54→17:28)
[2017-07-29] MEDS: LASIX IV SCH ×2 (08:59→13:16)
[2017-07-29] MEDS: PROTONIX IV SCH (11:15)
--- NOTE | 2017-07-29 12:59 | PROGRESS NOTE ---
DATE: 07/29/2017 Mr. Albrecht is still fully dependent on the respirator. He is he is getting 30% FiO2, respiratory rate is set at 12, PEEP 5 and the tidal volume is around 500. Blood gases this morning revealed pH 7.4, pCO2 46, PO2 59 and we have been trying for last 3 days to wean him off and it has been somewhat unsuccessful. Electrolytes reveal potassium of 3.3. Overall condition is unchanged. Chest x-ray shows some improvement in basal infiltrate right side, on the left side it looks about the same. We are continuing the current management. He continues to have some persistent drainage from the rectum. Overall prognosis appears to be very poor. cc: Casimiro Reeves MD
[2017-07-29] MEDS: SODIUM CHLORIDE 0.9% INJ SCH (13:15)
[2017-07-29] MEDS: LOVENOX SUBQ SCH (21:47)
[2017-07-29] MEDS: THIAMINE 100 MG in NS 50 ML IV SCH (22:04)
[2017-07-30] MEDS: HUMULIN R SUBQ SCH ×7 (00:04→23:37)
[2017-07-30] MEDS: DIPRIVAN 1% 1,000 MG/100 ML BOTTLE IV SCH ×11 (00:55→23:40)
[2017-07-30] MEDS: DUONEB (A & A) INH SCH ×4 (03:20→21:00)
[2017-07-30] MEDS: LASIX IV SCH ×3 (03:35→14:47)
[2017-07-30] MEDS: ZOSYN 3.375 GM in NS 50 ML IV SCH ×4 (03:49→20:32)
[2017-07-30 04:22] LABS: ALLEN TEST YES; BE 7.1 mmoll (-3.0-3.0); BLOOD TYPE ARTERIAL; DRAW SITE R RADIAL; METHB 0.8 % (0.0-1.5); O2(CT) 14.2 mL/dL (15.0-23.0); PCO2(98.6) 42 mmHg (35-45); PO2(98.6) 69 mmHg (60-100); SAMPLE BLOOD; SAO2 97.5 % (95.0-100.0); SRATE 8 BPM; THB 10.7 g/dL (11.5-17.4); TVOL 700 mL; pH(98.6) 7.48 (7.35-7.45)
[2017-07-30 04:23] LABS: MODALITY VENTILATOR
[2017-07-30 05:01] LABS: HEMATOCRIT 28.8 % (42.0-52.0); HEMOGLOBIN 9.5 g/dL (14.0-18.0); MCH 34.1 PG (27-31); MCV 103.2 FL (81-99); MPV 9.5 FL (7.4-10.4); RBC 2.79 XMIL (4.7-6.1)
[2017-07-30 05:10] LABS: MAGNESIUM 1.9 mg/dL (1.5-2.7)
[2017-07-30 05:14] LABS: ALBUMIN 2.7 g/dL (3.5-5.0); CALCIUM 9.3 mg/dL (8.8-10.2); POTASSIUM 3.2 mmol/L (3.5-5.1); TOTAL BILIRUBIN 0.23 mg/dL (0.20-1.00); TOTAL PROTEIN 5.6 g/dL (6.3-8.3)
[2017-07-30] MEDS: LOPRESSOR PO SCH ×2 (08:48→20:31)
[2017-07-30] MEDS: PLAVIX PO SCH (08:48)
[2017-07-30] MEDS: CARDIZEM PO SCH ×2 (08:48→20:31)
[2017-07-30] MEDS: ASPIRIN EC PO SCH (08:48)
[2017-07-30] MEDS: PRINZIDE 20/12.5MG PO SCH (08:48)
[2017-07-30] MEDS: GLUCOPHAGE PO SCH ×3 (08:48→18:25)
[2017-07-30] MEDS: POTASSIUM CHLORIDE 20% LIQUID PO SCH (08:49)
--- NOTE | 2017-07-30 09:04 | Diag Imaging Result Doc PS360 ---
CHEST-PORTABLE - 07/30/2017 INDICATION: respiratory failure TECHNIQUE: COMPARISON: 07/29/2017 FINDINGS: Support lines and tubes are stable. There is significant worsening in hazy bibasilar infiltrates/atelectasis at the lower lobes. Stable cardiomegaly. Worsening pulmonary vascular congestion. There may be pleural effusions as well. IMPRESSION: Worsening aeration of the lung bases. Worsening pulmonary vascular congestion. Electronically signed by Sanju Perkins 07/30/2017 9:02 AM
[2017-07-30] MEDS: CLINIMIX E 4.25%-5% SOLUTION 1,000 ML IV SCH (11:28)
[2017-07-30] MEDS: PROTONIX IV SCH (11:59)
--- NOTE | 2017-07-30 13:14 | PROGRESS NOTE ---
DATE: 07/30/2017 SUBJECTIVE: Patient is on a ventilator and is not responding at this time. OBJECTIVE: Vital Signs: Blood pressure is 152/64, respirations are 10, pulse 71, temperature 97.6 degrees Fahrenheit. HEENT: Essentially normocephalic. Lungs: Have scattered rales. I hear no wheezes at this time. Heart: Regular rate and rhythm without murmurs, gallops, or friction rubs. Abdomen: Soft. Active bowel sounds. No organomegaly or tenderness. Neurological: Difficult to ascertain as is sedated. DIAGNOSTIC DATA: White count 11,930. Hemoglobin is 9.5. Blood gas is 7.48 with a pCO2 of 42 and a pO2 of 69 on the ventilator with an FiO2 of 30%. Chest x-ray shows according to the radiologist a little worsening of the pneumonia/edema. Potassium is 3.2. Was 3.3 yesterday and was 2.9 the day before. ASSESSMENT: 1. Acute respiratory failure. 2. Chronic obstructive pulmonary disease. 3. Pneumonia. 4. Coronary artery disease. 5. Diastolic heart failure. 6. Methicillin-resistant Staphylococcus aureus skin infection. PLAN: We will continue support. Pulmonology and Cardiology are still seeing the patient. cc: MD Casimiro Winkler Jr, MD
--- NOTE | 2017-07-30 13:39 | PROGRESS NOTE ---
DATE: 07/30/2017 SUBJECTIVE: Patient continues on ventilator and sedated. OBJECTIVE: Vital Signs: Blood pressure 152/64, heart rate 83, oxygen saturation 94% with an FiO2 of 30%. Neck: There is no significant jugular venous distention. Chest: Auscultation of the chest reveals diminished breath sounds diffusely. Cardiac Exam: Reveals a regular rate and rhythm without appreciable murmur or gallop. There is no edema. LABORATORY DATA: Includes a white blood cell count 11.9, hematocrit 28.8. PO2 69 on FiO2 of 30%, pH 7.48, pCO2 42. BUN 36, creatinine 1.5. IMPRESSION: 1. Respiratory failure, hypoxemic. 2. Severe chronic obstructive pulmonary disease requiring chronic home oxygen. 3. Atherosclerotic coronary disease with history of previous coronary stents. 4. Peripheral artery disease. 5. Diabetes mellitus. 6. Obstructive sleep apnea. 7. Hypertension. 8. Morbid obesity. RECOMMENDATIONS: 1. Continue supportive care. 2. Continue daily Lasix for now. Diastolic heart failure appears to be reasonably compensated at this point. 3. Continue current medical regimen for coronary atherosclerosis. cc: MD Casimiro Rivas MD
[2017-07-30] MEDS: LOVENOX SUBQ SCH (18:45)
[2017-07-30] MEDS: VANCOMYCIN 2 GM in NS 500 ML IV SCH (20:31)
[2017-07-30] MEDS: THIAMINE 100 MG in NS 50 ML IV SCH (20:31)
[2017-07-31] MEDS: LASIX IV SCH ×4 (01:22→20:50)
[2017-07-31] MEDS: DIPRIVAN 1% 1,000 MG/100 ML BOTTLE IV SCH ×11 (01:22→23:10)
[2017-07-31] MEDS: ZOSYN 3.375 GM in NS 50 ML IV SCH ×4 (03:00→20:51)
[2017-07-31] MEDS: HUMULIN R SUBQ SCH ×6 (03:07→23:17)
[2017-07-31] MEDS: DUONEB (A & A) INH SCH ×4 (03:23→21:19)
[2017-07-31 04:28] LABS: ALLEN TEST YES; BE 7.6 mmoll (-3.0-3.0); BLOOD TYPE ARTERIAL; DRAW SITE R RADIAL; METHB 1.1 % (0.0-1.5); O2(CT) 9.2 mL/dL (15.0-23.0); PCO2(98.6) 34 mmHg (35-45); PO2(98.6) 136 mmHg (60-100); SAMPLE BLOOD; SAO2 99.9 % (95.0-100.0); SRATE 8 BPM; THB 6.6 g/dL (11.5-17.4); TVOL 700 mL
[2017-07-31 04:29] LABS: MODALITY VENTILATOR; pH(98.6) 7.56 (7.35-7.45)
[2017-07-31 05:27] LABS: HEMATOCRIT 26.6 % (42.0-52.0); HEMOGLOBIN 8.9 g/dL (14.0-18.0); MCH 33.6 PG (27-31); MCHC 33.5 g/dL (33-37); MCV 100.4 FL (81-99); MPV 9.7 FL (7.4-10.4); RBC 2.65 XMIL (4.7-6.1)
[2017-07-31 05:32] LABS: AGAP 15; ALBUMIN 2.3 g/dL (3.5-5.0); ALKALINE PHOSPHATASE 76 U/L (32-122); BUN 43 mg/dL (8-22); CALCIUM 8.4 mg/dL (8.8-10.2); CHLORIDE 98 mmol/L (98-107); COSMO 299; GOT 9 U/L (10-34); GPT < 5 U/L (10-44); POTASSIUM 3.2 mmol/L (3.5-5.1); SODIUM 139 mmol/L (136-145); TCO2 26 mmol/L (25-35); TOTAL BILIRUBIN 0.22 mg/dL (0.20-1.00); TOTAL PROTEIN 5.4 g/dL (6.3-8.3)
--- NOTE | 2017-07-31 08:46 | Diag Imaging Result Doc PS360 ---
CHEST-PORTABLE - 07/31/2017 INDICATION: respiratory failure TECHNIQUE: COMPARISON: 07/30/2017 FINDINGS: Support lines and tubes are stable. The patient is severely rotated. Otherwise grossly stable cardiomegaly, pulmonary vascular congestion, diffuse pulmonary edema, and pleural effusions. IMPRESSION: No change from prior. Electronically signed by Sanju Perkins 07/31/2017 8:44 AM
[2017-07-31] MEDS: PLAVIX PO SCH (09:00)
[2017-07-31] MEDS: PRINZIDE 20/12.5MG PO SCH (09:00)
[2017-07-31] MEDS: LOPRESSOR PO SCH ×2 (09:00→20:50)
[2017-07-31] MEDS: GLUCOPHAGE PO SCH ×3 (09:01→16:15)
[2017-07-31] MEDS: ASPIRIN EC PO SCH (09:01)
[2017-07-31] MEDS: POTASSIUM CHLORIDE 20% LIQUID PO SCH (09:08)
[2017-07-31] MEDS: CARDIZEM PO SCH ×2 (09:08→20:50)
[2017-07-31] MEDS: CLINIMIX E 4.25%-5% SOLUTION 1,000 ML IV SCH ×2 (11:18→15:09)
[2017-07-31] MEDS: PROTONIX IV SCH (11:23)
--- NOTE | 2017-07-31 17:48 | PROGRESS NOTE ---
DATE: 07/31/2017 SUBJECTIVE: The patient is on ventilator and not responsive. OBJECTIVE: Vital Signs: Blood pressure of 101/53, respirations 18, pulse 61, temperature 98.2 degrees Fahrenheit. HEENT: Essentially normal. Neck: Supple. Lungs: Sound clear to auscultation and percussion, without rhonchi, rales, or wheezes today. Chest x-ray showed pulmonary congestion with diffuse pulmonary edema, pleural effusions. Unchanged from previous chest x-ray. Heart: Regular rate and rhythm, without murmurs, gallops, or friction rubs. Abdomen: Soft. Active bowel sounds. No organomegaly or tenderness. ASSESSMENT: 1. Acute respiratory failure. 2. Chronic obstructive pulmonary disease. 3. Pneumonia. 4. Coronary artery disease. 5. Diastolic heart failure. 6. Methicillin-resistant Staphylococcus aureus skin infection, left elbow. 7. Hypokalemia. PLAN: Continue support. Potassium is still slightly low at 3.2, but he is getting supplementation. cc: MD Casimiro Winkler Jr, MD
[2017-07-31] MEDS: LOVENOX SUBQ SCH (20:50)
[2017-07-31] MEDS: THIAMINE 100 MG in NS 50 ML IV SCH (20:51)
[2017-08-01] MEDS: DIPRIVAN 1% 1,000 MG/100 ML BOTTLE IV SCH ×12 (01:22→22:15)
[2017-08-01] MEDS: ZOSYN 3.375 GM in NS 50 ML IV SCH ×4 (03:07→20:12)
[2017-08-01] MEDS: DUONEB (A & A) INH SCH ×4 (03:09→22:21)
[2017-08-01] MEDS: HUMULIN R SUBQ SCH ×6 (03:43→23:38)
[2017-08-01] MEDS: LASIX IV SCH ×3 (03:44→20:12)
[2017-08-01 04:39] LABS: ALLEN TEST YES; BE 6.6 mmoll (-3.0-3.0); BLOOD TYPE ARTERIAL; DRAW SITE R RADIAL; METHB 1.2 % (0.0-1.5); O2(CT) 9.5 mL/dL (15.0-23.0); PCO2(98.6) 40 mmHg (35-45); PO2(98.6) 69 mmHg (60-100); SAMPLE BLOOD; SAO2 97.7 % (95.0-100.0); SRATE 8 BPM; THB 7.1 g/dL (11.5-17.4); TVOL 700 mL; pH(98.6) 7.49 (7.35-7.45)
[2017-08-01 04:40] LABS: MODALITY VENTILATOR
[2017-08-01] MEDS: CLINIMIX E 4.25%-5% SOLUTION 1,000 ML IV SCH (04:40)
[2017-08-01 06:03] LABS: HEMATOCRIT 27.9 % (42.0-52.0); HEMOGLOBIN 9.2 g/dL (14.0-18.0); MCH 33.6 PG (27-31); MCV 101.8 FL (81-99); MPV 9.9 FL (7.4-10.4); RBC 2.74 XMIL (4.7-6.1)
[2017-08-01 06:33] LABS: ALBUMIN 2.7 g/dL (3.5-5.0); CALCIUM 9.5 mg/dL (8.8-10.2); POTASSIUM 3.1 mmol/L (3.5-5.1); TOTAL BILIRUBIN 0.18 mg/dL (0.20-1.00); TOTAL PROTEIN 5.6 g/dL (6.3-8.3)
--- NOTE | 2017-08-01 07:26 | Diag Imaging Result Doc PS360 ---
EXAM: CHEST-PORTABLE HISTORY: respiratory failure TECHNIQUE: AP portable at 0500 COMMENT: There is an endotracheal tube with its tip slightly below the thoracic inlet. There is an NG tube which passes below the diaphragm. There is pulmonary edema. This appears slightly improved over the left lower lobe than on 07/31/2017. There appears to be pleural fluid on the right. IMPRESSION: Pulmonary edema and right pleural effusion. Electronically signed by Altaf Butt 08/01/2017 7:24 AM
[2017-08-01] MEDS: POTASSIUM CHLORIDE 20% LIQUID PO SCH (08:07)
[2017-08-01] MEDS: LOPRESSOR PO SCH ×2 (08:07→21:19)
[2017-08-01] MEDS: ASPIRIN EC PO SCH (08:07)
[2017-08-01] MEDS: PLAVIX PO SCH (08:07)
[2017-08-01] MEDS: PRINZIDE 20/12.5MG PO SCH (08:08)
[2017-08-01] MEDS: CARDIZEM PO SCH ×2 (08:08→20:12)
[2017-08-01] MEDS: GLUCOPHAGE PO SCH ×3 (08:08→16:03)
[2017-08-01] MEDS: VANCOMYCIN 1.75 GM in NS 250 ML IV SCH (09:22)
--- NOTE | 2017-08-01 09:37 | PROGRESS NOTE ---
DATE: 08/01/2017 SUBJECTIVE: Mr. Albrecht continues to be on a vent. OBJECTIVE: His heart rate is around 63, blood pressure is normal. He is he is getting IV antibiotics. He has constant rectal drainage. He is getting NG tube feeding. Overall condition is poor. LAB DATA: Is not change, except that his potassium is 3.1. CBC is unremarkable. BUN is 49, creatinine is 4.5. He does have anemia. Hemoglobin is 9.2, white count is 12.29. Overall condition is unchanged. The chest x-ray done this morning reveals pulmonary edema and right pleural effusion. -2 cc: Casimiro Reeves MD
[2017-08-01] MEDS: SODIUM CHLORIDE 0.9% INJ SCH (10:31)
[2017-08-01] MEDS: PROTONIX IV SCH (10:31)
[2017-08-01] MEDS: LOVENOX SUBQ SCH (19:15)
[2017-08-01] MEDS: THIAMINE 100 MG in NS 50 ML IV SCH (20:12)
[2017-08-02] MEDS: DIPRIVAN 1% 1,000 MG/100 ML BOTTLE IV SCH ×13 (00:12→23:35)
[2017-08-02] MEDS: ZOSYN 3.375 GM in NS 50 ML IV SCH ×4 (02:23→20:29)
[2017-08-02] MEDS: DUONEB (A & A) INH SCH ×4 (03:10→22:11)
[2017-08-02] MEDS: HUMULIN R SUBQ SCH ×6 (03:56→23:13)
[2017-08-02] MEDS: LASIX IV SCH ×3 (03:56→20:29)
[2017-08-02 04:47] LABS: ALLEN TEST YES; BE 1.9 mmoll (-3.0-3.0); BLOOD TYPE ARTERIAL; DRAW SITE R RADIAL; METHB 1.4 % (0.0-1.5); O2(CT) 16.5 mL/dL (15.0-23.0); PCO2(98.6) 41 mmHg (35-45); PO2(98.6) 80 mmHg (60-100); SAMPLE BLOOD; SAO2 97.8 % (95.0-100.0); SRATE 8 BPM; THB 12.3 g/dL (11.5-17.4); TVOL 700 mL; pH(98.6) 7.42 (7.35-7.45)
[2017-08-02 04:48] LABS: MODALITY VENTILATOR
[2017-08-02 05:50] LABS: HEMATOCRIT 27.4 % (42.0-52.0); HEMOGLOBIN 9.1 g/dL (14.0-18.0); MCH 34.1 PG (27-31); MCHC 33.2 g/dL (33-37); MCV 102.6 FL (81-99); MPV 10.1 FL (7.4-10.4); RBC 2.67 XMIL (4.7-6.1)
[2017-08-02 06:05] LABS: ALBUMIN 2.6 g/dL (3.5-5.0); CALCIUM 9.2 mg/dL (8.8-10.2); POTASSIUM 3.6 mmol/L (3.5-5.1); TOTAL BILIRUBIN 0.28 mg/dL (0.20-1.00)
--- NOTE | 2017-08-02 07:36 | Diag Imaging Result Doc PS360 ---
EXAM: CHEST-PORTABLE HISTORY: respiratory failure TECHNIQUE: AP portable at 0500 COMMENT: There is an endotracheal tube with its tip at the thoracic inlet. There is hazy opacity over the lung bases with apparent bilateral pleural effusions and pulmonary edema. This has not changed appreciably since the previous study of 08/01/2017. IMPRESSION: Pulmonary edema and pleural effusions. Electronically signed by Altaf Butt 08/02/2017 7:33 AM
[2017-08-02] MEDS: PRINZIDE 20/12.5MG PO SCH (08:07)
[2017-08-02] MEDS: LOPRESSOR PO SCH ×2 (08:07→20:30)
[2017-08-02] MEDS: ASPIRIN EC PO SCH (08:07)
[2017-08-02] MEDS: PLAVIX PO SCH (08:07)
[2017-08-02] MEDS: GLUCOPHAGE PO SCH ×3 (08:07→16:08)
[2017-08-02] MEDS: CARDIZEM PO SCH ×2 (08:07→20:30)
[2017-08-02] MEDS: POTASSIUM CHLORIDE 20% LIQUID PO SCH (08:08)
[2017-08-02] MEDS: PROTONIX IV SCH (11:15)
[2017-08-02] MEDS: SODIUM CHLORIDE 0.9% INJ SCH (11:15)
[2017-08-02] MEDS: LOVENOX SUBQ SCH (19:31)
[2017-08-02] MEDS: THIAMINE 100 MG in NS 50 ML IV SCH (20:30)
[2017-08-02] MEDS: VANCOMYCIN 1.75 GM in NS 250 ML IV SCH (22:35)
[2017-08-03] MEDS: DIPRIVAN 1% 1,000 MG/100 ML BOTTLE IV SCH ×12 (01:21→22:46)
[2017-08-03] MEDS: ZOSYN 3.375 GM in NS 50 ML IV SCH ×4 (03:33→20:26)
[2017-08-03] MEDS: HUMULIN R SUBQ SCH ×5 (03:33→19:42)
[2017-08-03] MEDS: DUONEB (A & A) INH SCH ×4 (03:51→19:28)
[2017-08-03 04:47] LABS: HEMATOCRIT 26.3 % (42.0-52.0); HEMOGLOBIN 8.8 g/dL (14.0-18.0); MCH 34.2 PG (27-31); MCHC 33.5 g/dL (33-37); MCV 102.3 FL (81-99); MPV 9.9 FL (7.4-10.4); RBC 2.57 XMIL (4.7-6.1)
[2017-08-03 04:52] LABS: ALLEN TEST YES; BE 0.8 mmoll (-3.0-3.0); BLOOD TYPE ARTERIAL; DRAW SITE R RADIAL; METHB 1.3 % (0.0-1.5); O2(CT) 12.7 mL/dL (15.0-23.0); PCO2(98.6) 39 mmHg (35-45); PO2(98.6) 82 mmHg (60-100); SAMPLE BLOOD; SAO2 98.4 % (95.0-100.0); SRATE 8 BPM; THB 9.4 g/dL (11.5-17.4); TVOL 700 mL; pH(98.6) 7.42 (7.35-7.45)
[2017-08-03 04:54] LABS: MODALITY VENTILATOR
[2017-08-03 05:05] LABS: ALBUMIN 2.7 g/dL (3.5-5.0); CALCIUM 8.6 mg/dL (8.8-10.2); POTASSIUM 3.2 mmol/L (3.5-5.1); TOTAL BILIRUBIN 0.18 mg/dL (0.20-1.00); TOTAL PROTEIN 5.9 g/dL (6.3-8.3)
[2017-08-03] MEDS: LASIX IV SCH (05:41)
--- NOTE | 2017-08-03 07:39 | Diag Imaging Result Doc PS360 ---
CHEST-PORTABLE - 08/03/2017 733 INDICATION: decrease in o2 sat TECHNIQUE: COMPARISON: 08/03/2017 at 0500 FINDINGS: Support lines and tubes are stable. Stable cardiomegaly and pulmonary vascular congestion. Stable hazy bibasilar infiltrates. Stable right hemidiaphragm elevation. There are probably pleural effusions. IMPRESSION: No change from prior. Electronically signed by Sanju Perkisn 08/03/2017 7:37 AM
--- NOTE | 2017-08-03 07:40 | Diag Imaging Result Doc PS360 ---
CHEST-PORTABLE - 08/03/2017 INDICATION: respiratory failure TECHNIQUE: COMPARISON: 08/02/2017 FINDINGS: Support lines and tubes are stable. Stable cardiomegaly and pulmonary vascular congestion. Stable hazy bilateral infiltrates. This is worst at the lung bases. There are probably pleural effusions. IMPRESSION: No change from prior. Electronically signed by Sanju Perkins 08/03/2017 7:37 AM
[2017-08-03] MEDS: CARDIZEM PO SCH ×2 (08:00→20:26)
[2017-08-03] MEDS: PLAVIX PO SCH (08:01)
[2017-08-03] MEDS: GLUCOPHAGE PO SCH ×3 (08:01→16:10)
[2017-08-03] MEDS: POTASSIUM CHLORIDE 20% LIQUID PO SCH (08:01)
[2017-08-03] MEDS: LOPRESSOR PO SCH ×2 (08:01→20:26)
[2017-08-03] MEDS: ASPIRIN EC PO SCH (08:01)
--- NOTE | 2017-08-03 09:16 | PROGRESS NOTE ---
DATE: 08/03/2017 Mr. Albrecht could not be weaned off yesterday and actually last night he started desaturation and FiO2 was increased up to 100%. This morning, his oxygen saturation is 98%. ABGs are close to normal. Chest x-ray is unchanged. Electrolytes reveal some decrease in the potassium which went down from 3.6 to 3.2. His blood sugar is around 262, and BUN and creatinine are actually going up. Overall prognosis is poor. He seems to be going down. He has been on the ventilator for at least 12 days now. We will continue with the current management on him. He continues to have a significant amount of rectal drainage. cc: Casimiro Reeves MD
[2017-08-03] MEDS: PROTONIX IV SCH (10:31)
[2017-08-03] MEDS: SODIUM CHLORIDE 0.9% INJ SCH (10:31)
[2017-08-03] MEDS: MUCOMYST 20% INH SCH ×2 (11:24→19:28)
[2017-08-03] MEDS: LOVENOX SUBQ SCH (19:42)
[2017-08-03] MEDS: THIAMINE 100 MG in NS 50 ML IV SCH (20:26)
[2017-08-04] MEDS: HUMULIN R SUBQ SCH ×7 (00:03→23:14)
[2017-08-04] MEDS: DIPRIVAN 1% 1,000 MG/100 ML BOTTLE IV SCH ×12 (00:04→23:05)
[2017-08-04] MEDS: DUONEB (A & A) INH SCH ×4 (03:25→22:30)
[2017-08-04] MEDS: ZOSYN 3.375 GM in NS 50 ML IV SCH ×4 (03:34→20:02)
[2017-08-04 04:18] LABS: BLOOD TYPE ARTERIAL; SAMPLE BLOOD
[2017-08-04 04:19] LABS: BE 0.4 mmoll (-3.0-3.0); METHB 1.3 % (0.0-1.5); MODALITY VENTILATOR; O2(CT) 11.7 mL/dL (15.0-23.0); PCO2(98.6) 42 mmHg (35-45); PO2(98.6) 83 mmHg (60-100); THB 8.6 g/dL (11.5-17.4); pH(98.6) 7.39 (7.35-7.45)
[2017-08-04 04:20] LABS: ALLEN TEST YES; DRAW SITE R RADIAL; SRATE 8 BPM; TVOL 700 mL
[2017-08-04 05:13] LABS: HEMOGLOBIN 8.2 g/dL (14.0-18.0); MCH 33.1 PG (27-31); MCHC 32.8 g/dL (33-37); MCV 100.8 FL (81-99); MPV 10.2 FL (7.4-10.4); RBC 2.48 XMIL (4.7-6.1)
[2017-08-04 06:06] LABS: ALBUMIN 2.5 g/dL (3.5-5.0); CALCIUM 9.3 mg/dL (8.8-10.2); POTASSIUM 3.5 mmol/L (3.5-5.1); TOTAL BILIRUBIN 0.21 mg/dL (0.20-1.00); TOTAL PROTEIN 5.8 g/dL (6.3-8.3)
[2017-08-04] MEDS: GLUCOPHAGE PO SCH ×3 (07:42→16:23)
--- NOTE | 2017-08-04 07:42 | Diag Imaging Result Doc PS360 ---
CHEST-PORTABLE - 08/04/2017 INDICATION: respiratory failure TECHNIQUE: COMPARISON: 08/03/2017 FINDINGS: Support lines and tubes are stable. Stable cardiomegaly and pulmonary vascular congestion. Stable hazy bibasilar infiltrates/atelectasis. IMPRESSION: No change from prior. Electronically signed by Sanju Perkins 08/04/2017 7:39 AM
[2017-08-04] MEDS: ASPIRIN EC PO SCH (08:09)
[2017-08-04] MEDS: LOPRESSOR PO SCH ×2 (08:09→20:02)
[2017-08-04] MEDS: CARDIZEM PO SCH ×2 (08:09→20:02)
[2017-08-04] MEDS: PLAVIX PO SCH (08:09)
[2017-08-04] MEDS: LASIX IV SCH (08:09)
[2017-08-04] MEDS: POTASSIUM CHLORIDE 20% LIQUID PO SCH (08:15)
[2017-08-04] MEDS: MUCOMYST 20% INH SCH ×2 (09:35→19:19)
--- NOTE | 2017-08-04 09:51 | PROGRESS NOTE ---
DATE: 08/04/2017 SUBJECTIVE: Mr. Albrecht is in about the same general condition. OBJECTIVE: Lungs: Still reveal some pulmonary congestion bilaterally chest x-ray is unchanged he is dependent on the respirator his respiratory parameters tidal volume 700, PEEP of 5, FiO2 60%. Cardiovascular: Heart sounds are normal. LABS: His CBC is unremarkable. Hemoglobin has dropped to 8.2. White count is 11.23. ABGs are satisfactory with the vent. PLAN: Overall condition is unchanged. He continues to have a large amount of rectal drainage. cc: Casimiro Reeves MD
[2017-08-04] MEDS: SODIUM CHLORIDE 0.9% INJ SCH (11:21)
[2017-08-04] MEDS: PROTONIX IV SCH (11:21)
[2017-08-04] MEDS: VANCOMYCIN 1,500 MG in NS 250 ML IV SCH (13:07)
[2017-08-04] MEDS: LOVENOX SUBQ SCH (20:02)
[2017-08-04] MEDS: THIAMINE 100 MG in NS 50 ML IV SCH (20:02)
[2017-08-05] MEDS: DIPRIVAN 1% 1,000 MG/100 ML BOTTLE IV SCH ×12 (01:49→22:42)
[2017-08-05] MEDS: DUONEB (A & A) INH SCH ×4 (03:00→21:20)
[2017-08-05] MEDS: ZOSYN 3.375 GM in NS 50 ML IV SCH ×4 (03:08→21:25)
[2017-08-05] MEDS: HUMULIN R SUBQ SCH ×5 (04:18→20:17)
[2017-08-05 04:32] LABS: ALLEN TEST YES; BE -0.3 mmoll (-3.0-3.0); BLOOD TYPE ARTERIAL; DRAW SITE R RADIAL; METHB 1.4 % (0.0-1.5); O2(CT) 9.5 mL/dL (15.0-23.0); PCO2(98.6) 35 mmHg (35-45); PO2(98.6) 92 mmHg (60-100); SAMPLE BLOOD; SAO2 100.5 % (95.0-100.0); SRATE 8 BPM; THB 6.9 g/dL (11.5-17.4); TVOL 700 mL; pH(98.6) 7.44 (7.35-7.45)
[2017-08-05 04:33] LABS: MODALITY VENTILATOR
[2017-08-05 05:28] LABS: ALBUMIN 2.4 g/dL (3.5-5.0); CALCIUM 9.1 mg/dL (8.8-10.2); HEMATOCRIT 25.9 % (42.0-52.0); HEMOGLOBIN 8.5 g/dL (14.0-18.0); MCH 33.1 PG (27-31); MCHC 32.8 g/dL (33-37); MCV 100.8 FL (81-99); MPV 10.1 FL (7.4-10.4); POTASSIUM 3.7 mmol/L (3.5-5.1); RBC 2.57 XMIL (4.7-6.1); TOTAL BILIRUBIN 0.24 mg/dL (0.20-1.00); TOTAL PROTEIN 5.4 g/dL (6.3-8.3)
--- NOTE | 2017-08-05 07:25 | Diag Imaging Result Doc PS360 ---
EXAM: CHEST-PORTABLE HISTORY: respiratory failure TECHNIQUE: Portable AP COMPARISON: 08/04/2017 FINDINGS: No change in the endotracheal tube, right-sided PICC line, or in the nasogastric tube. There are small bilateral pleural effusions. There is bilateral basilar atelectasis and there may be underlying infiltrates. The overall appearance is similar to that of the prior exam. IMPRESSION: No interval improvement. Electronically signed by Hood Flores 08/05/2017 7:23 AM
[2017-08-05] MEDS: LOPRESSOR PO SCH ×2 (09:33→21:24)
[2017-08-05] MEDS: POTASSIUM CHLORIDE 20% LIQUID PO SCH (09:33)
[2017-08-05] MEDS: ASPIRIN EC PO SCH (09:33)
[2017-08-05] MEDS: GLUCOPHAGE PO SCH ×3 (09:33→16:34)
[2017-08-05] MEDS: CARDIZEM PO SCH ×2 (09:35→21:24)
[2017-08-05] MEDS: LASIX IV SCH (09:35)
[2017-08-05] MEDS: PLAVIX PO SCH (09:39)
[2017-08-05] MEDS: MUCOMYST 20% INH SCH ×2 (09:58→21:20)
[2017-08-05] MEDS: PROTONIX IV SCH (12:14)
--- NOTE | 2017-08-05 12:21 | Diag Imaging Result Doc PS360 ---
EXAM: CT THORAX/ABD/PELVIS W/O CONT HISTORY: f/u pancreatitis TECHNIQUE: CT of the chest, abdomen, and pelvis without intravenous but with oral contrast, dose reduction (clarity.) COMMENT: There is compressive atelectasis particularly in the lower lobes due to bilateral pleural effusions. This has definitely worsened on the right side since the previous study of 07/20/2017. The fluid volume on the left is also worse and there is increasing atelectasis. There is an NG tube and an endotracheal tube, the latter extending below the level of the thoracic inlet but well above the juana. The NG tube tip is in the stomach. There are nonspecific appearing prevascular and paratracheal nodes which are slightly more prominent than on the previous study of the right paratracheal node which is present on image 32 of the current study measures almost 12 mm in short axis dimension compared to less than 8 mm previously. ABDOMEN:There is slightly less edema in the peripancreatic fat than on the previous examination. No evidence of abscess or other abnormal fluid collection is present. The left adrenal gland remains enlarged. The lateral lobe of the right adrenal gland is also somewhat thickened but this has not changed. There is contrast throughout the colon. The appendix is normal in appearance. Pelvis: There is a Deutsch catheter in the bladder which is not distended. There are no abnormal fluid collections are present. There is a rectal tube with balloon in the lower portion of the rectum. This was not present previously. There is bilateral spondylolysis at L5 which has not changed since the previous study. IMPRESSION: Slightly improved pancreatitis. Worsened bilateral pleural effusions with compressive atelectasis. Electronically signed by Altaf Butt 08/05/2017 12:18 PM
--- NOTE | 2017-08-05 15:35 | PROGRESS NOTE ---
DATE: 08/05/2017 SUBJECTIVE: Mr. Albrecht continues to do poorly. He had a CT scan of the chest and abdomen and pelvis today. He continues to have a large amount of rectal drainage urine output is good. He is on vent with 45% FiO2 and 5 cm PEEP, as well as 700 tidal volume. His arterial blood gases done today reveal pH 7.44, pCO2 35, PO2 92. He was very exhausted when he came back from the CT scans and we decided not to give him a weaning trial today. The current CT scan results are not back. The chest x-ray shows no interval change. Overall prognosis is poor. His CBC shows the hemoglobin is down to 8.5, but they electrolytes are stable. BUN is 68, creatinine 1.8. -2 cc: Casimiro Reeves MD
[2017-08-05] MEDS ORDERED: CATHFLO IV ONE (16:31)
[2017-08-05] MEDS ORDERED: STERILE WATER INJ. INJ ONE (16:31)
[2017-08-05] MEDS: LOVENOX SUBQ SCH (20:48)
[2017-08-05] MEDS: THIAMINE 100 MG in NS 50 ML IV SCH (21:24)
[2017-08-06] MEDS: HUMULIN R SUBQ SCH ×7 (00:18→23:41)
[2017-08-06] MEDS: VANCOMYCIN 1,500 MG in NS 250 ML IV SCH (00:19)
[2017-08-06] MEDS: DUONEB (A & A) INH SCH ×4 (03:25→21:30)
[2017-08-06] MEDS: DIPRIVAN 1% 1,000 MG/100 ML BOTTLE IV SCH ×12 (03:39→23:41)
[2017-08-06] MEDS: ZOSYN 3.375 GM in NS 50 ML IV SCH ×4 (03:42→20:11)
[2017-08-06 04:31] LABS: ALLEN TEST YES; BE -4.1 mmoll (-3.0-3.0); BLOOD TYPE ARTERIAL; DRAW SITE R RADIAL; METHB 1.3 % (0.0-1.5); O2(CT) 16.6 mL/dL (15.0-23.0); PCO2(98.6) 37 mmHg (35-45); PO2(98.6) 83 mmHg (60-100); SAMPLE BLOOD; SRATE 8 BPM; THB 12.4 g/dL (11.5-17.4); TVOL 700 mL; pH(98.6) 7.36 (7.35-7.45)
[2017-08-06 04:32] LABS: MODALITY VENTILATOR
[2017-08-06 06:24] LABS: HEMATOCRIT 24.5 % (42.0-52.0); HEMOGLOBIN 7.9 g/dL (14.0-18.0); MCH 33.6 PG (27-31); MCHC 32.2 g/dL (33-37); MCV 104.3 FL (81-99); RBC 2.35 XMIL (4.7-6.1)
[2017-08-06 06:46] LABS: ALBUMIN 2.5 g/dL (3.5-5.0); POTASSIUM 3.5 mmol/L (3.5-5.1); TOTAL BILIRUBIN 0.19 mg/dL (0.20-1.00); TOTAL PROTEIN 5.9 g/dL (6.3-8.3)
--- NOTE | 2017-08-06 07:14 | Diag Imaging Result Doc PS360 ---
EXAM: CHEST-PORTABLE HISTORY: respiratory failure TECHNIQUE: AP portable erect at 0520 COMMENT: There is an endotracheal tube at the thoracic inlet and an NG tube which passes below the diaphragm. There are bilateral pleural effusions. There is hazy opacity over both lower lung zapata consistent with pulmonary edema. Compared to the previous study of 08/05/2017 this has not changed significantly. There is a PICC line on the right the tip of which ascends into the internal jugular vein. IMPRESSION: Pleural effusions and pulmonary edema. Electronically signed by Altaf Butt 08/06/2017 7:11 AM
[2017-08-06] MEDS: GLUCOPHAGE PO SCH ×3 (07:26→16:34)
[2017-08-06] MEDS: LASIX IV SCH (08:46)
[2017-08-06] MEDS: CARDIZEM PO SCH ×2 (08:46→20:13)
[2017-08-06] MEDS: LOPRESSOR PO SCH ×2 (08:46→20:21)
[2017-08-06] MEDS: POTASSIUM CHLORIDE 20% LIQUID PO SCH (08:46)
[2017-08-06] MEDS: ASPIRIN EC PO SCH (08:46)
[2017-08-06] MEDS: PLAVIX PO SCH (08:47)
[2017-08-06] MEDS: MUCOMYST 20% INH SCH ×2 (09:25→21:30)
[2017-08-06] MEDS: PROTONIX IV SCH (11:34)
[2017-08-06] MEDS: SODIUM CHLORIDE 0.9% INJ SCH (11:34)
--- NOTE | 2017-08-06 12:54 | PROGRESS NOTE ---
DATE: 08/06/2017 SUBJECTIVE: Mr. Albrecht is sedated and on a ventilator. OBJECTIVE: Vital Signs: He is afebrile, heart rate is 69, blood pressure 121/58. His I's and O's have been negative over the last 24-48 hours. General: He is in no acute distress. Cardiovascular: He is in a regular rate and rhythm. He has no murmurs. He has no lower extremity edema. Warm and well perfused lower extremities. Chest: His chest exam sounds clear with mechanical breath sounds heard bilaterally. No increased work of breathing. Abdomen: Soft, nontender. Bowel sounds are present. PERTINENT DATA: His white count is 9.8, his hematocrit is 24.5, platelet count 394. Sodium 139, potassium 3.5, BUN 58, creatinine is 1.9, and his albumin is 2.5. ASSESSMENT: 1. Diastolic heart failure. 2. Methicillin-resistant Staphylococcus aureus infection. PLAN: He is continuing to diurese very slowly. His AA gradient elevated yesterday, but is down slightly today. His FiO2 is down to 45% from 50% yesterday. We will continue with current management. Dr. Malin will be back to evaluate the patient on Tuesday. cc: MD Casimiro Baez MD
[2017-08-06] MEDS: THIAMINE 100 MG in NS 50 ML IV SCH (20:11)
[2017-08-06] MEDS: LOVENOX SUBQ SCH (20:12)
[2017-08-07] MEDS: DIPRIVAN 1% 1,000 MG/100 ML BOTTLE IV SCH ×13 (01:44→23:16)
[2017-08-07] MEDS: DUONEB (A & A) INH SCH ×5 (03:15→21:00)
[2017-08-07] MEDS: ZOSYN 3.375 GM in NS 50 ML IV SCH ×4 (04:08→21:32)
[2017-08-07] MEDS: HUMULIN R SUBQ SCH ×6 (04:29→23:17)
[2017-08-07 04:35] LABS: ALLEN TEST YES; BE -4.6 mmoll (-3.0-3.0); BLOOD TYPE ARTERIAL; DRAW SITE R RADIAL; METHB 1.1 % (0.0-1.5); O2(CT) 12.2 mL/dL (15.0-23.0); PCO2(98.6) 35 mmHg (35-45); PO2(98.6) 95 mmHg (60-100); SAMPLE BLOOD; SAO2 99.2 % (95.0-100.0); SRATE 8 BPM; THB 8.9 g/dL (11.5-17.4); TVOL 700 mL; pH(98.6) 7.37 (7.35-7.45)
[2017-08-07 04:36] LABS: MODALITY VENTILATOR
[2017-08-07 06:21] LABS: HEMATOCRIT 26.2 % (42.0-52.0); HEMOGLOBIN 8.5 g/dL (14.0-18.0); MCH 32.7 PG (27-31); MCHC 32.4 g/dL (33-37); MCV 100.8 FL (81-99); MPV 9.9 FL (7.4-10.4); RBC 2.6 XMIL (4.7-6.1)
[2017-08-07 06:33] LABS: ALBUMIN 2.7 g/dL (3.5-5.0); CALCIUM 9.1 mg/dL (8.8-10.2); POTASSIUM 3.8 mmol/L (3.5-5.1); TOTAL BILIRUBIN 0.19 mg/dL (0.20-1.00); TOTAL PROTEIN 5.7 g/dL (6.3-8.3)
--- NOTE | 2017-08-07 07:11 | Diag Imaging Result Doc PS360 ---
EXAM: CHEST-PORTABLE HISTORY: respiratory failure TECHNIQUE: Erect AP portable at 0515 COMMENT: Compared to the previous study of 08/06/2017 there may be slightly less right pleural fluid and slightly more opacity in the left lower lobe. IMPRESSION: Pleural effusions and pulmonary edema. Electronically signed by Altaf Butt 08/07/2017 7:09 AM
[2017-08-07] MEDS: ASPIRIN EC PO SCH (08:23)
[2017-08-07] MEDS: PLAVIX PO SCH (08:23)
[2017-08-07] MEDS: CARDIZEM PO SCH ×2 (08:23→21:08)
[2017-08-07] MEDS: LASIX IV SCH ×2 (08:24→15:06)
[2017-08-07] MEDS: POTASSIUM CHLORIDE 20% LIQUID PO SCH (08:24)
[2017-08-07] MEDS: GLUCOPHAGE PO SCH ×3 (08:24→16:01)
[2017-08-07] MEDS: LOPRESSOR PO SCH ×2 (08:24→21:07)
[2017-08-07] MEDS: MUCOMYST 20% INH SCH ×2 (08:49→21:00)
[2017-08-07] MEDS: PROTONIX IV SCH (11:03)
[2017-08-07] MEDS: VANCOMYCIN 1,500 MG in NS 250 ML IV SCH (12:24)
[2017-08-07] MEDS: ALBUMIN 25% IV SCH (13:55)
--- NOTE | 2017-08-07 14:59 | PROGRESS NOTE ---
DATE: 08/06/2017 ICU level 3 documentation. SUBJECTIVE: This is a 71-year-old white gentleman admitted to the hospital since 07/19/2017 with pancreatitis and ARDS associated with atrial fibrillation, CHF, with MRSA in the right elbow. The patient remains on the vent support. Past medical history, past surgical history and medicines were reviewed. OBJECTIVE: He is afebrile, pulse 74, respirations 20, blood pressure 150/71 on mechanical ventilation. I's and O's are negative at 700 mL. HEENT: Sedated, intubated, nasogastric tube seen. He also has a PICC line on the right side Chest is clear. Heart sounds are regular. Belly is soft and nontender. He has Deutsch tube noted. DIAGNOSTIC DATA: On 08/06/2017 CBC showed white cell count of 9.8, hematocrit 24, platelets 394. ABG shows pH of 7.36, pCO2 of 37, pO2 of 83, bicarb 21 on AC of 8, FiO2 45%. SMA-7 showed sodium 139, potassium 3.5, chloride 101, BUN is 58, creatinine 1.9, glucose 208. LFTs were normal. Sputum cultures with staph noted. C. difficile was negative. Elbow with Staphylococcus aureus. ASSESSMENT AND PLAN: 1. Central nervous system. Under sedation. 2. Paroxysmal atrial fibrillation, diastolic heart failure. IV Lasix. 3. Acute ventilatory failure, still persistent fluid. Continue with the diuresis. 4. Enteral feeding with Jevity. 5. Pancreatitis. CT scan is improving. 6. DVT prophylaxis with Lovenox. 7. Right elbow cellulitis with methicillin-resistant Staphylococcus aureus, on vancomycin and Zosyn. 8. Blood sugars are running. Follow up on sliding scale with insulin coverage. Level of documentation was 35 minutes. cc: MD Casimiro Lazaro MD [facility]
--- NOTE | 2017-08-07 15:46 | PROGRESS NOTE ---
DATE: 08/07/2017 HISTORY: The patient was admitted since 07/19/2017 for pancreatitis, complicated by multiorgan failure. No history was obtained from the patient. He was sedated and intubated, on supportive medicines. REVIEW OF SYSTEMS: None reported. PAST MEDICAL HISTORY: Reviewed. PAST SURGICAL HISTORY: Reviewed. MEDICINES: Reviewed. PHYSICAL EXAMINATION: Vital Signs: Temperature is 97 degrees, blood pressure is 137/66. He is on mechanical ventilation. Intake and output is positive 900 mL. HEENT: He was intubated. NG tube was placed. PICC line on the right side. Deutsch catheter and rectal tube were placed. Chest: Bilateral air entry. Heart: Sounds are regular. Abdomen: Belly is soft, nontender. Generalized edema is noted. Neurological: Hard to assess. INVESTIGATIONS: C. difficile was negative, 07/19, MRSA infection in the right elbow. Labs: CBC: White cell count 10, hematocrit 26, platelets 452,000. ABG: pH is 7.37, pCO2 35, PO2 95, bicarb 21, FiO2 45%, tidal volume 700, PEEP of 5. SMA-7: Sodium 140, potassium 3.8, chloride 103, BUN 56, creatinine 1.9, glucose 216. LFTs were normal. CT scan of the abdomen and pelvis on 08/05/2017: Slightly improved pancreatitis, worsening of bilateral pleural effusion, with compressive atelectasis. 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 2. Acute respiratory failure due to ARDS, with bilateral pleural effusions. Slowly wean off. He is still volume overloaded. We will use an extra Lasix today. 3. Pancreatitis. Stable, on enteral feeding with Jevity. 4. Blood sugars are running around 200-250. We will use the sliding scale with insulin coverage. He is already on metformin. 5. Gastrointestinal prophylaxis with IV Protonix. MRSA of the right elbow, on IV vancomycin and IV Zosyn. 6. Paroxysmal atrial fibrillation, with diastolic heart failure. We will give an extra Lasix. 7. Hypoalbuminemia. Albumin is 2.7. Consider using IV albumin, followed by Lasix for 3 days. LEVEL OF DOCUMENTATION: 25 minutes. cc: MD Casimiro Lazaro MD
[2017-08-07] MEDS ORDERED: HUMULIN R SUBQ SCH (16:00)
[2017-08-07] MEDS: LOVENOX SUBQ SCH (19:47)
[2017-08-07] MEDS: THIAMINE 100 MG in NS 50 ML IV SCH (21:08)
[2017-08-08] MEDS: DIPRIVAN 1% 1,000 MG/100 ML BOTTLE IV SCH ×12 (01:27→22:30)
[2017-08-08] MEDS: DUONEB (A & A) INH SCH ×4 (03:05→19:14)
[2017-08-08] MEDS: HUMULIN R SUBQ SCH ×5 (03:42→19:59)
[2017-08-08] MEDS: ZOSYN 3.375 GM in NS 50 ML IV SCH ×4 (03:43→20:01)
[2017-08-08 05:06] LABS: ALLEN TEST YES; BLOOD TYPE ARTERIAL; DRAW SITE R RADIAL; METHB 1.3 % (0.0-1.5); O2(CT) 11.9 mL/dL (15.0-23.0); PCO2(98.6) 36 mmHg (35-45); PO2(98.6) 173 mmHg (60-100); SAMPLE BLOOD; SAO2 100.5 % (95.0-100.0); SRATE 8 BPM; THB 8.4 g/dL (11.5-17.4); TVOL 700 mL; pH(98.6) 7.32 (7.35-7.45)
[2017-08-08 05:08] LABS: MODALITY VENTILATOR
[2017-08-08 06:23] LABS: HEMATOCRIT 25.5 % (42.0-52.0); HEMOGLOBIN 8.1 g/dL (14.0-18.0); MCH 32.9 PG (27-31); MCHC 31.8 g/dL (33-37); MCV 103.7 FL (81-99); MPV 9.8 FL (7.4-10.4); RBC 2.46 XMIL (4.7-6.1)
[2017-08-08 06:58] LABS: ALBUMIN 2.9 g/dL (3.5-5.0); CALCIUM 9.6 mg/dL (8.8-10.2); POTASSIUM 3.9 mmol/L (3.5-5.1); TOTAL BILIRUBIN 0.2 mg/dL (0.20-1.00); TOTAL PROTEIN 6.4 g/dL (6.3-8.3)
--- NOTE | 2017-08-08 07:22 | Diag Imaging Result Doc PS360 ---
CHEST-PORTABLE - 08/08/2017 INDICATION: respiratory failure TECHNIQUE: COMPARISON: 08/07/2017 FINDINGS: The right PICC line has been adjusted. The tip is now in good position and the upper SVC. Stable endotracheal tube and nasogastric tube in good position. Stable cardiomegaly and pulmonary vascular congestion. Stable bibasilar airspace opacities, nonspecific. IMPRESSION: PICC line adjusted. Otherwise no change from prior. Electronically signed by Sanju Perkins 08/08/2017 7:20 AM
[2017-08-08] MEDS: GLUCOPHAGE PO SCH (09:11)
[2017-08-08] MEDS: PLAVIX PO SCH (09:11)
[2017-08-08] MEDS: CARDIZEM PO SCH ×2 (09:11→20:01)
[2017-08-08] MEDS: LOPRESSOR PO SCH ×2 (09:11→20:01)
[2017-08-08] MEDS: ASPIRIN NG SCH (09:11)
[2017-08-08] MEDS: POTASSIUM CHLORIDE 20% LIQUID PO SCH (09:12)
[2017-08-08] MEDS: LASIX IV SCH ×2 (09:12→16:36)
--- NOTE | 2017-08-08 09:55 | PROGRESS NOTE ---
DATE: 08/08/2017 Mr. Albrecht's vital signs are stable. He is still dependent on the vent. Hemoglobin is gradually going down. It is down from 8.5 to 8.1. White count is 12.01. The platelet count is normal. ABGs revealed pH 7.32, pCO2 36, pO2 173. He is on the same parameters for the ventilator. FiO2 with is 60%. Electrolytes are normal. BUN is 55. Creatinine is 2.0. Overall prognosis does not seem changed. Chest x-ray is unchanged with a PICC line. -1 cc: Casimiro Reeves MD
[2017-08-08] MEDS: BICITRA PO SCH ×2 (10:36→20:01)
[2017-08-08] MEDS: PROTONIX IV SCH (10:38)
[2017-08-08 10:49] LABS: ALLEN TEST YES; BE -5.5 mmoll (-3.0-3.0); BLOOD TYPE ARTERIAL; DRAW SITE R RADIAL; METHB 0.8 % (0.0-1.5); O2(CT) 11.8 mL/dL (15.0-23.0); PCO2(98.6) 31 mmHg (35-45); PO2(98.6) 101 mmHg (60-100); SAMPLE BLOOD; SAO2 100.4 % (95.0-100.0); THB 8.5 g/dL (11.5-17.4); pH(98.6) 7.39 (7.35-7.45)
[2017-08-08 10:51] LABS: MODALITY VENTILATOR
[2017-08-08] MEDS: MUCOMYST 20% INH SCH ×2 (11:07→19:13)
[2017-08-08] MEDS: ALBUMIN 25% IV SCH (15:15)
[2017-08-08] MEDS: LOVENOX SUBQ SCH (20:00)
[2017-08-08] MEDS: THIAMINE 100 MG in NS 50 ML IV SCH (20:01)
[2017-08-09] MEDS: DIPRIVAN 1% 1,000 MG/100 ML BOTTLE IV SCH ×12 (01:45→23:00)
[2017-08-09] MEDS: HUMULIN R SUBQ SCH ×7 (01:46→23:18)
[2017-08-09] MEDS: ZOSYN 3.375 GM in NS 50 ML IV SCH ×4 (02:52→20:32)
[2017-08-09] MEDS: DUONEB (A & A) INH SCH ×4 (03:15→19:16)
[2017-08-09] MEDS: VANCOMYCIN 2,000 MG in NS 500 ML IV SCH (04:09)
[2017-08-09 04:42] LABS: ALLEN TEST YES; BLOOD TYPE ARTERIAL; DRAW SITE R RADIAL; METHB 1.1 % (0.0-1.5); MODALITY VENTILATOR; O2(CT) 16.4 mL/dL (15.0-23.0); PCO2(98.6) 38 mmHg (35-45); PO2(98.6) 105 mmHg (60-100); SAMPLE BLOOD; SAO2 99.3 % (95.0-100.0); SRATE 8 BPM; TVOL 700 mL; pH(98.6) 7.32 (7.35-7.45)
[2017-08-09 06:14] LABS: MCH 33.3 PG (27-31); MCV 104.2 FL (81-99); MPV 9.6 FL (7.4-10.4); RBC 2.4 XMIL (4.7-6.1)
[2017-08-09 06:32] LABS: ALBUMIN 3.1 g/dL (3.5-5.0); CALCIUM 9.4 mg/dL (8.8-10.2); POTASSIUM 3.9 mmol/L (3.5-5.1); TOTAL BILIRUBIN 0.18 mg/dL (0.20-1.00); TOTAL PROTEIN 6.2 g/dL (6.3-8.3)
--- NOTE | 2017-08-09 07:10 | Diag Imaging Result Doc PS360 ---
EXAM: CHEST-PORTABLE HISTORY: respiratory failure TECHNIQUE: Erect AP portable at 0510 COMMENT: There is an endotracheal tube with its tip at thoracic inlet. There is bilateral pleural effusion particularly on the right side. There is atelectasis or pneumonia in both lower lobes and the lingula. Compared to the previous study of 08/08/2017 inspiration is slightly less optimal but otherwise has been no significant change. IMPRESSION: Pleural effusions and bibasilar atelectasis plus minus pneumonia. Electronically signed by Altaf Butt 08/09/2017 7:08 AM
[2017-08-09] MEDS: MUCOMYST 20% INH SCH ×2 (09:05→19:15)
--- NOTE | 2017-08-09 09:32 | PROGRESS NOTE ---
DATE: 08/09/2017 Mr. Albrecht is in about the same general condition. This morning, his blood pressure is elevated, probably because his Diprivan has been delayed and cut off for the time being to see if we can wean him off. The blood pressure went down immediately after the Diprivan was started. However, he is still dependent on the ventilator. Arterial blood gases are satisfactory. White count is 10.2, hemoglobin is down to 8 g now. Electrolytes are normal. BUN 58, creatinine 2.1. A chest x- ray showed bilateral pleural effusions. Otherwise, it is unchanged. We will discuss with his daughter today when she comes in. cc: Casimiro Reeves MD
[2017-08-09] MEDS ORDERED: ZOSYN ONE (09:43)
[2017-08-09] MEDS: PLAVIX PO SCH (09:51)
[2017-08-09] MEDS: CARDIZEM PO SCH ×2 (09:51→20:08)
[2017-08-09] MEDS: BICITRA PO SCH ×2 (09:51→20:08)
[2017-08-09] MEDS: POTASSIUM CHLORIDE 20% LIQUID PO SCH (09:51)
[2017-08-09] MEDS: LOPRESSOR PO SCH ×2 (09:51→20:08)
[2017-08-09] MEDS: ASPIRIN NG SCH (09:51)
[2017-08-09] MEDS: LASIX IV SCH ×2 (09:51→15:20)
[2017-08-09] MEDS: PROTONIX IV SCH (11:48)
[2017-08-09] MEDS: ALBUMIN 25% IV SCH (13:34)
[2017-08-09] MEDS: LOVENOX SUBQ SCH (20:08)
[2017-08-09] MEDS: THIAMINE 100 MG in NS 50 ML IV SCH (20:32)
[2017-08-10] MEDS: DIPRIVAN 1% 1,000 MG/100 ML BOTTLE IV SCH ×12 (01:12→23:28)
[2017-08-10] MEDS: DUONEB (A & A) INH SCH ×4 (03:00→19:49)
[2017-08-10] MEDS: ZOSYN 3.375 GM in NS 50 ML IV SCH ×4 (03:00→20:11)
[2017-08-10 04:28] LABS: ALLEN TEST YES; BE -5.1 mmoll (-3.0-3.0); BLOOD TYPE ARTERIAL; DRAW SITE R RADIAL; METHB 0.7 % (0.0-1.5); O2(CT) 11.1 mL/dL (15.0-23.0); PCO2(98.6) 35 mmHg (35-45); PO2(98.6) 117 mmHg (60-100); SAMPLE BLOOD; SAO2 99.8 % (95.0-100.0); SRATE 8 BPM; THB 7.9 g/dL (11.5-17.4); TVOL 700 mL; pH(98.6) 7.36 (7.35-7.45)
[2017-08-10 04:31] LABS: MODALITY VENTILATOR
[2017-08-10] MEDS: HUMULIN R SUBQ SCH ×6 (04:32→23:52)
[2017-08-10 05:02] LABS: HEMATOCRIT 24.5 % (42.0-52.0); HEMOGLOBIN 7.8 g/dL (14.0-18.0); MCH 33.1 PG (27-31); MCHC 31.8 g/dL (33-37); MCV 103.8 FL (81-99); MPV 9.6 FL (7.4-10.4); RBC 2.36 XMIL (4.7-6.1)
[2017-08-10 05:26] LABS: ALBUMIN 2.9 g/dL (3.5-5.0); CALCIUM 9.7 mg/dL (8.8-10.2); POTASSIUM 3.7 mmol/L (3.5-5.1); TOTAL BILIRUBIN 0.15 mg/dL (0.20-1.00); TOTAL PROTEIN 5.7 g/dL (6.3-8.3)
--- NOTE | 2017-08-10 07:17 | Diag Imaging Result Doc PS360 ---
EXAM: CHEST-PORTABLE INDICATION: respiratory failure TECHNIQUE: One view COMPARISON: 08/09/2017 FINDINGS: Support tubes and lines are in stable positions. Atelectasis and/or infiltrate at the lower lung zones is stable. Bilateral effusions are grossly unchanged. No new consolidation is appreciated. Cardiac silhouette is stable. IMPRESSION: Stable chest. Electronically signed by Hasmukh Matos 08/10/2017 7:15 AM
[2017-08-10] MEDS: LOPRESSOR PO SCH ×2 (08:30→20:11)
[2017-08-10] MEDS: ASPIRIN NG SCH (08:30)
[2017-08-10] MEDS: CARDIZEM PO SCH ×2 (08:30→17:20)
[2017-08-10] MEDS: BICITRA PO SCH ×2 (08:31→20:11)
[2017-08-10] MEDS: LASIX IV SCH (08:31)
[2017-08-10] MEDS: POTASSIUM CHLORIDE 20% LIQUID PO SCH (08:31)
[2017-08-10] MEDS: PLAVIX PO SCH (08:31)
[2017-08-10] MEDS ORDERED: ZOSYN ONE (09:07)
[2017-08-10] MEDS: MUCOMYST 20% INH SCH ×2 (09:21→19:48)
--- NOTE | 2017-08-10 09:49 | PROGRESS NOTE ---
DATE: 08/10/2017 Mr. Albrecht is not doing well. He is still dependent on the ventilator. Blood gases look good with 45% FiO2. His hemoglobin has gone down further to 7.8. He may require blood later on if it continues to drop. Electrolytes are stable. Overall condition is unchanged. Chest x-ray shows bilateral effusions with some atelectasis and pneumonia. We will continue the current management on him. -8 cc: Casimiro Reeves MD
[2017-08-10] MEDS: SODIUM CHLORIDE 0.9% INJ SCH (11:20)
[2017-08-10] MEDS: PROTONIX IV SCH (11:20)
[2017-08-10] MEDS: VANCOMYCIN 2,000 MG in NS 500 ML IV SCH (14:56)
[2017-08-10] MEDS: THIAMINE 100 MG in NS 50 ML IV SCH (20:10)
[2017-08-10] MEDS: LOVENOX SUBQ SCH (20:11)
[2017-08-11] MEDS: DIPRIVAN 1% 1,000 MG/100 ML BOTTLE IV SCH ×10 (01:43→23:00)
[2017-08-11] MEDS: DUONEB (A & A) INH SCH ×4 (02:52→21:26)
[2017-08-11] MEDS: ZOSYN 3.375 GM in NS 50 ML IV SCH ×4 (03:43→21:57)
[2017-08-11] MEDS: HUMULIN R SUBQ SCH ×5 (04:22→20:44)
[2017-08-11 04:38] LABS: ALLEN TEST YES; BLOOD TYPE ARTERIAL; DRAW SITE R RADIAL; MODALITY VENTILATOR; O2(CT) 11.5 mL/dL (15.0-23.0); PCO2(98.6) 36 mmHg (35-45); PO2(98.6) 87 mmHg (60-100); SAMPLE BLOOD; SAO2 98.8 % (95.0-100.0); SRATE 8 BPM; THB 8.5 g/dL (11.5-17.4); TVOL 700 mL; pH(98.6) 7.37 (7.35-7.45)
[2017-08-11 06:51] LABS: AGAP 19; ALBUMIN 2.8 g/dL (3.5-5.0); ALKALINE PHOSPHATASE 84 U/L (32-122); BUN 60 mg/dL (8-22); CALCIUM 8.9 mg/dL (8.8-10.2); CHLORIDE 106 mmol/L (98-107); COSMO 309; GOT 12 U/L (10-34); GPT < 5 U/L (10-44); POTASSIUM 4.4 mmol/L (3.5-5.1); SODIUM 143 mmol/L (136-145); TCO2 18 mmol/L (25-35); TOTAL BILIRUBIN 0.21 mg/dL (0.20-1.00)
--- NOTE | 2017-08-11 07:11 | Diag Imaging Result Doc PS360 ---
EXAM: CHEST-PORTABLE HISTORY: respiratory failure TECHNIQUE: Erect AP portable at 0505 COMMENT: There are bilateral pleural effusions and pulmonary edema. The atelectasis which was present in the lingula on 08/10/2017 has improved. Endotracheal tube and NG tube remain in place. IMPRESSION: Improved left upper lobe atelectasis. Otherwise stable. Electronically signed by Altaf Butt 08/11/2017 7:09 AM
[2017-08-11 07:45] LABS: HEMATOCRIT 27.5 % (42.0-52.0); HEMOGLOBIN 8.8 g/dL (14.0-18.0); MCH 33.3 PG (27-31); MCV 104.2 FL (81-99); MPV 9.4 FL (7.4-10.4); RBC 2.64 XMIL (4.7-6.1)
[2017-08-11] MEDS: MUCOMYST 20% INH SCH ×2 (09:09→21:26)
[2017-08-11] MEDS: PLAVIX PO SCH (09:15)
[2017-08-11] MEDS: CARDIZEM PO SCH ×3 (09:15→17:01)
[2017-08-11] MEDS: ASPIRIN NG SCH (09:15)
[2017-08-11] MEDS: POTASSIUM CHLORIDE 20% LIQUID PO SCH (09:16)
[2017-08-11] MEDS: LOPRESSOR PO SCH ×2 (09:17→21:57)
[2017-08-11] MEDS: LASIX IV SCH (09:17)
[2017-08-11] MEDS: BICITRA PO SCH ×2 (09:17→21:57)
--- NOTE | 2017-08-11 10:47 | PROGRESS NOTE ---
DATE: 08/11/2017 Mr. Albrecht continues to be in the same general condition. He is dependent on the ventilator. His son is supposed to come today and decide about whether he wants to go for tracheostomy or he wants to . His condition remains the same. Vital signs are stable. Heart rate is around 100. Hemoglobin has gone up to 8.8. ABGs are satisfactory. Electrolytes have been normal. BUN 60, creatinine 2.3. Chest x-ray is unchanged except that he has some improvement in the left upper lobe atelectasis. We will continue weaning trial. cc: Casimiro Reeves MD
[2017-08-11] MEDS: PROTONIX IV SCH (11:23)
[2017-08-11] MEDS: LOVENOX SUBQ SCH (20:40)
[2017-08-11] MEDS: THIAMINE 100 MG in NS 50 ML IV SCH (21:57)
--- NOTE | 2017-08-11 21:59 | PROGRESS NOTE ---
DATE: 08/11/2017 His son has given consent for tracheostomy. We are going to consult Dr. Nam for tracheostomy tomorrow morning. Overall condition is otherwise unchanged. cc: Casimiro Reeves MD
[2017-08-12] MEDS: HUMULIN R SUBQ SCH ×6 (00:45→20:50)
[2017-08-12] MEDS: DIPRIVAN 1% 1,000 MG/100 ML BOTTLE IV SCH ×11 (01:26→23:31)
[2017-08-12] MEDS: CARDIZEM PO SCH ×3 (01:30→17:09)
[2017-08-12] MEDS: DUONEB (A & A) INH SCH ×4 (03:07→19:33)
[2017-08-12] MEDS: ZOSYN 3.375 GM in NS 50 ML IV SCH ×3 (04:00→16:19)
[2017-08-12 04:32] LABS: ALLEN TEST YES; BE -3.4 mmoll (-3.0-3.0); BLOOD TYPE ARTERIAL; DRAW SITE R RADIAL; METHB 1.1 % (0.0-1.5); MODALITY VENTILATOR; O2(CT) 13.6 mL/dL (15.0-23.0); PCO2(98.6) 36 mmHg (35-45); PO2(98.6) 91 mmHg (60-100); SAMPLE BLOOD; SRATE 6 BPM; TVOL 900 mL; pH(98.6) 7.38 (7.35-7.45)
[2017-08-12 06:31] LABS: HEMATOCRIT 23.5 % (42.0-52.0); HEMOGLOBIN 7.6 g/dL (14.0-18.0); MCH 33.8 PG (27-31); MCHC 32.3 g/dL (33-37); MCV 104.4 FL (81-99); MPV 9.5 FL (7.4-10.4); RBC 2.25 XMIL (4.7-6.1)
[2017-08-12 06:49] LABS: ALBUMIN 2.9 g/dL (3.5-5.0); CALCIUM 9.2 mg/dL (8.8-10.2); POTASSIUM 4.5 mmol/L (3.5-5.1); TOTAL BILIRUBIN 0.17 mg/dL (0.20-1.00); TOTAL PROTEIN 5.7 g/dL (6.3-8.3)
--- NOTE | 2017-08-12 07:27 | Diag Imaging Result Doc PS360 ---
EXAM: CHEST-PORTABLE INDICATION: respiratory failure TECHNIQUE: One view COMPARISON: 08/11/2017 FINDINGS: Support tubes and lines are in stable positions. There has been improvement of the bilateral pleural effusions, especially on the right and improvement of the bibasilar atelectasis and/or infiltrate. There is still interstitial edema that is stable to slightly improved. Cardiac silhouette is stable. IMPRESSION: Interval improvement. Electronically signed by Hasmukh Matos 08/12/2017 7:24 AM
[2017-08-12] MEDS: POTASSIUM CHLORIDE 20% LIQUID PO SCH (09:25)
[2017-08-12] MEDS: ASPIRIN NG SCH (09:30)
[2017-08-12] MEDS: BICITRA PO SCH ×2 (09:32→20:19)
[2017-08-12] MEDS: MUCOMYST 20% INH SCH (09:32)
[2017-08-12] MEDS: PLAVIX PO SCH (09:34)
[2017-08-12] MEDS: LOPRESSOR PO SCH ×2 (09:34→20:19)
[2017-08-12] MEDS: LASIX IV SCH (10:03)
[2017-08-12] MEDS: PROTONIX IV SCH (11:06)
[2017-08-12] MEDS ORDERED: XYLOCAINE 1% ONE (11:30)
[2017-08-12] MEDS ORDERED: ROBINUL ONE (11:40)
[2017-08-12] MEDS ORDERED: XYLOCAINE-MPF 2% ONE (11:43)
[2017-08-12] MEDS ORDERED: ZEMURON ONE ×2 (11:43→12:46)
[2017-08-12] MEDS ORDERED: FENTANYL ONE ×2 (11:44→13:00)
[2017-08-12] MEDS ORDERED: DIPRIVAN 1% ONE (11:44)
[2017-08-12] MEDS ORDERED: VERSED ONE (11:45)
[2017-08-12] MEDS ORDERED: SODIUM CHLORIDE 0.9% 10 ML ONE (11:46)
[2017-08-12] MEDS ORDERED: NS 500 ML ONE (17:00)
--- NOTE | 2017-08-12 18:05 | PROGRESS NOTE ---
DATE: 08/12/2017 has gone for tracheostomy today. He is dependent on the vent. His vital signs are stable. His hemoglobin is down to 7.6 this morning. We will transfuse him 1 unit of packed RBCs today. Arterial blood gases and electrolytes are stable. BUN is 59, creatinine 2.3. Overall condition is otherwise unchanged. cc: Casimiro Reeves MD
[2017-08-12] MEDS: LOVENOX SUBQ SCH (20:20)
[2017-08-13] MEDS: CARDIZEM PO SCH ×3 (00:43→16:27)
[2017-08-13] MEDS: HUMULIN R SUBQ SCH ×6 (00:46→21:00)
[2017-08-13] MEDS: DIPRIVAN 1% 1,000 MG/100 ML BOTTLE IV SCH ×4 (01:27→07:57)
[2017-08-13] MEDS: DUONEB (A & A) INH SCH ×4 (03:04→21:10)
[2017-08-13 04:26] LABS: BE -3.8 mmoll (-3.0-3.0); BLOOD TYPE ARTERIAL; METHB 1.1 % (0.0-1.5); O2(CT) 12.7 mL/dL (15.0-23.0); PCO2(98.6) 33 mmHg (35-45); PO2(98.6) 107 mmHg (60-100); SAMPLE BLOOD; SAO2 99.5 % (95.0-100.0); SRATE 6 BPM; THB 9.2 g/dL (11.5-17.4); TVOL 800 mL
[2017-08-13 04:27] LABS: ALLEN TEST YES; DRAW SITE R RADIAL; MODALITY VENTILATOR
--- NOTE | 2017-08-13 06:33 | OPERATIVE NOTE ---
PROCEDURE DATE: 08/12/2017 PROCEDURE PERFORMED: Tracheostomy. SURGEON: Huseyin Nam MD SKI LIFT ATTENDANT: Melba Wagner PREOPERATIVE DIAGNOSIS: Respiratory failure. POSTOPERATIVE DIAGNOSIS: Respiratory failure. DESCRIPTION OF PROCEDURE: Satisfactory general was achieved. The patient came to the operating room on the ventilator. A small roll was placed underneath his shoulders. The anterior neck was prepped and draped in a sterile fashion. Because of the size of his neck, we marked the skin transversely and anesthetized the skin with 1% lidocaine with epinephrine. We made a transverse incision. We carried our incision through the platysma. We then placed Weitlaner retractors, made an incision in the cervical fascia in the midline, and divided the isthmus. We obtained an 8 mm Shiley that was long. We tested the balloon under water. It was satisfactory. Trach ties were placed on the flange. We then placed our trach hook under the laryngeal cartilage and pulled up the trachea. We had to remove the first tracheal ring. The nurse transportation assistant then let down the balloon on the endotracheal tube and began backing it out when the tube become past the tracheotomy hole. We then inserted the long 8 Shiley trach into the trachea. We introduced the inner cannula. We passed a flexible tipped suction, and it was fine. We then held the flange secure and the corrugated ventilator tubing was handed over the drape and attached to the tracheostomy. The patient ventilated satisfactorily to get end tidal CO2. We held the flange secure. The balloon was inflated to stop any air leak, and the patient ventilated satisfactorily. We then placed two 3-0 nylon stitches at each into the wound to help approximate the skin slightly, and 3-0 nylons were passed through the flange themselves on each side to help hold the flange in place. The trach ties were then passed around the neck and tied. He tolerated procedure satisfactorily and was sent back to the surgical intensive care unit in preoperative condition. cc: MD Casimiro Chopra MD James E. Boyle, MD
[2017-08-13 07:02] LABS: HEMATOCRIT 27.2 % (42.0-52.0); HEMOGLOBIN 8.7 g/dL (14.0-18.0); MCH 32.3 PG (27-31); MCV 101.1 FL (81-99); MPV 9.5 FL (7.4-10.4); RBC 2.69 XMIL (4.7-6.1)
--- NOTE | 2017-08-13 07:27 | Diag Imaging Result Doc PS360 ---
EXAM: CHEST-PORTABLE HISTORY: respiratory failure TECHNIQUE: Portable chest COMPARISON: 08/12/2017 FINDINGS: I believe there is a tracheostomy tube on the current study. This is in good position. No change in the right-sided PICC line or in the nasogastric tube. Heart is not enlarged. There is mild pulmonary edema. Questionable tiny left effusion. Overall there has been slight interval improvement compared to the prior exam. IMPRESSION: Slight interval improvement. Electronically signed by Hood Flores 08/13/2017 7:24 AM
[2017-08-13 07:32] LABS: ALBUMIN 2.9 g/dL (3.5-5.0); CALCIUM 9.3 mg/dL (8.8-10.2); POTASSIUM 4.1 mmol/L (3.5-5.1); TOTAL BILIRUBIN 0.17 mg/dL (0.20-1.00); TOTAL PROTEIN 5.8 g/dL (6.3-8.3)
[2017-08-13] MEDS: PLAVIX PO SCH (09:05)
[2017-08-13] MEDS: LOPRESSOR PO SCH ×2 (09:05→21:46)
[2017-08-13] MEDS: ASPIRIN NG SCH (09:05)
[2017-08-13] MEDS: LASIX IV SCH (09:05)
[2017-08-13] MEDS: BICITRA PO SCH ×2 (09:06→21:46)
[2017-08-13] MEDS: POTASSIUM CHLORIDE 20% LIQUID PO SCH (09:06)
[2017-08-13] MEDS: PROTONIX IV SCH (12:43)
[2017-08-13] MEDS: MORPHINE IV PRN (16:28)
--- NOTE | 2017-08-13 18:27 | PROGRESS NOTE ---
DATE: 08/13/2017 SUBJECTIVE: Mr. Albrecht is a 71-year-old, white gentleman, doing fair. The patient had tracheostomy done yesterday. He is tolerating it well. The patient is getting NG tube feeding. Cook Chef and surgeon following the patient with us. The patient is not able to give any history. The patient initially admitted on July 19 with pancreatitis. The patient developed ARDS. The patient also has history of congestive heart failure, atrial fibrillation. The patient developed respiratory failure. Had a very complicated hospital course. HISTORY, PHYSICAL AND HOSPITAL COURSE: CT scan results reviewed. Vital signs: He has vital signs noted. Blood pressure 136/62, pulse 73, respiration 19, temperature 98 degrees. general: The patient does have generalized anasarca. Neck: Supple. No JVD. Lungs: Bibasilar crepitation. The patient does have a tracheostomy, placed yesterday. Abdomen: Soft. Mild distention. Extremities: No cyanosis, clubbing. No acute DVT. Genitourinary/rectal: The patient does have Deutsch catheter and rectal tube. Central nervous system: The patient is arousable, but uncooperative for detailed neurologic examination. LABORATORY DATA: Done today, hemoglobin 8.7, hematocrit 27.2, platelet count 558,000, WBC count 10.83. Blood gas result reviewed. Electrolytes: BUN 59, creatinine 2.1. PROBLEMS: Include: 1. Acute pancreatitis, which is improving. 2. Status post acute respiratory distress syndrome and respiratory failure. The patient had tracheostomy. Patient is still on the ventilator. 3. Anemia, status post 1 unit of blood transfusion yesterday. 4. Sepsis. 5. Chronic obstructive pulmonary disease. The patient's chest x-ray done today revealed tiny left pleural effusion. 6. The patient does have history of atrial fibrillation. 7. Overall, prognosis fair to guarded. We will continue current treatment. cc: MD Casimiro Lee MD
[2017-08-13] MEDS: LOVENOX SUBQ SCH (21:46)
[2017-08-14] MEDS: HUMULIN R SUBQ SCH ×6 (01:00→21:00)
[2017-08-14] MEDS: CARDIZEM PO SCH ×3 (01:19→17:34)
[2017-08-14] MEDS: DUONEB (A & A) INH SCH ×4 (03:08→21:06)
[2017-08-14 04:33] LABS: ALLEN TEST YES; BE -1.9 mmoll (-3.0-3.0); BLOOD TYPE ARTERIAL; DRAW SITE R RADIAL; METHB 0.8 % (0.0-1.5); O2(CT) 12.9 mL/dL (15.0-23.0); PCO2(98.6) 32 mmHg (35-45); PO2(98.6) 78 mmHg (60-100); SAMPLE BLOOD; SAO2 98.3 % (95.0-100.0); SRATE 6 BPM; THB 9.5 g/dL (11.5-17.4); TVOL 800 mL; pH(98.6) 7.44 (7.35-7.45)
[2017-08-14 04:36] LABS: MODALITY VENTILATOR
[2017-08-14] MEDS: MORPHINE IV PRN ×2 (05:43→17:33)
[2017-08-14 06:31] LABS: HEMATOCRIT 27.8 % (42.0-52.0); HEMOGLOBIN 8.9 g/dL (14.0-18.0); MCH 33.2 PG (27-31); MCV 103.7 FL (81-99); MPV 9.6 FL (7.4-10.4); RBC 2.68 XMIL (4.7-6.1)
[2017-08-14 06:39] LABS: ALBUMIN 2.9 g/dL (3.5-5.0); CALCIUM 9.4 mg/dL (8.8-10.2); TOTAL BILIRUBIN 0.17 mg/dL (0.20-1.00); TOTAL PROTEIN 6.1 g/dL (6.3-8.3)
--- NOTE | 2017-08-14 07:01 | Diag Imaging Result Doc PS360 ---
EXAM: CHEST-PORTABLE HISTORY: respiratory failure TECHNIQUE: Portable chest COMPARISON: 08/13/2017 FINDINGS: The lungs are well expanded. No change in the right-sided PICC line, nasogastric tube, or tracheostomy tube. Heart is not enlarged. Increased interstitial markings believed to be pulmonary edema. This is more pronounced than the prior study. There is a small left effusion. IMPRESSION: Interval worsening of the pulmonary edema. Electronically signed by Hood Flores 08/14/2017 6:59 AM
[2017-08-14] MEDS: POTASSIUM CHLORIDE 20% LIQUID PO SCH (08:20)
[2017-08-14] MEDS: VANCOMYCIN 1 GM/NS 1 GM/250 ML IVPB IV SCH (08:20)
[2017-08-14] MEDS: LASIX IV SCH (08:20)
[2017-08-14] MEDS: LOPRESSOR PO SCH ×2 (08:21→21:20)
[2017-08-14] MEDS: BICITRA PO SCH ×2 (08:21→21:19)
[2017-08-14] MEDS: PLAVIX PO SCH (08:21)
[2017-08-14] MEDS: ASPIRIN NG SCH (11:51)
[2017-08-14] MEDS: LANTUS SUBQ SCH (12:10)
[2017-08-14] MEDS: PROTONIX IV SCH (12:10)
[2017-08-14] MEDS: APRESOLINE PO SCH ×2 (12:12→21:20)
[2017-08-14] MEDS: MERREM 1 GM in NS 50 ML IV SCH (13:46)
[2017-08-14] MEDS ORDERED: LASIX IV ONE (16:00)
--- NOTE | 2017-08-14 16:59 | PROGRESS NOTE ---
DATE: 08/14/2017 SUBJECTIVE: Mr. Albrecht is doing fair. Still poorly responsive. His blood sugar is staying high. Patient is getting NG tube feeding. At time his blood pressure is staying high. The patient is on beta bhavesh and calcium channel bhavesh. The patient is not able to give any history. The patient is status post pancreatitis, ARDS, ventricular failure, recently had tracheostomy done. Patient is still on mechanical ventilation. OBJECTIVE: Vital signs: Noted. Blood pressure is still high. Lungs: Bibasilar crepitations. Heart: S1 and S2 heard. Abdomen: Soft, globular. Bowel sounds present. Mild epigastric tenderness. Extremities: No cyanosis, clubbing. No acute DVT. STOCK SPECULATOR: Patient is on mechanical ventilation. Poorly responsive. Uncooperative for detailed neurologic examination. LAB DATA: Done today BUN 54, creatinine 1.9. Accu-Chek results reviewed. PLAN: I am going to add long-acting insulin. Continue rest of the treatment. If blood pressure stays high we may add hydralazine for blood pressure control. Field Talent Qualification Specialist critical specialist following patient with us. cc: MD Casimiro Lee MD
[2017-08-14] MEDS: LOVENOX SUBQ SCH (21:20)
[2017-08-15] MEDS: HUMULIN R SUBQ SCH ×6 (00:06→20:21)
[2017-08-15] MEDS: CARDIZEM PO SCH ×3 (00:07→16:44)
[2017-08-15] MEDS: MERREM 1 GM in NS 50 ML IV SCH ×2 (00:07→12:07)
[2017-08-15] MEDS: DUONEB (A & A) INH SCH ×4 (03:38→21:35)
[2017-08-15 04:35] LABS: ALLEN TEST YES; BLOOD TYPE ARTERIAL; DRAW SITE R RADIAL; METHB 1.4 % (0.0-1.5); O2(CT) 11.9 mL/dL (15.0-23.0); PCO2(98.6) 35 mmHg (35-45); PO2(98.6) 67 mmHg (60-100); SAMPLE BLOOD; SAO2 96.6 % (95.0-100.0)
[2017-08-15 04:36] LABS: MODALITY VENTILATOR
[2017-08-15] MEDS: APRESOLINE PO SCH ×3 (05:50→20:21)
[2017-08-15 06:29] LABS: HEMOGLOBIN 8.7 g/dL (14.0-18.0); MCH 31.9 PG (27-31); MCHC 31.1 g/dL (33-37); MCV 102.6 FL (81-99); MPV 9.5 FL (7.4-10.4); RBC 2.73 XMIL (4.7-6.1)
[2017-08-15 07:02] LABS: ALBUMIN 3.1 g/dL (3.5-5.0); CALCIUM 9.8 mg/dL (8.8-10.2); POTASSIUM 3.3 mmol/L (3.5-5.1); TOTAL BILIRUBIN 0.23 mg/dL (0.20-1.00); TOTAL PROTEIN 6.2 g/dL (6.3-8.3)
--- NOTE | 2017-08-15 07:26 | Diag Imaging Result Doc PS360 ---
CHEST-PORTABLE - 08/15/2017 INDICATION: respiratory failure TECHNIQUE: COMPARISON: 08/14/2017 FINDINGS: Support lines and tubes are stable. There is worsening ill-defined infiltrate at the left lung base. Stable patchy infiltrate or atelectasis at the right base. Lung volumes are severely low. Heart size and pulmonary vascularity are moderately enlarged stable from prior. IMPRESSION: Slight worsening ill-defined infiltrate or or atelectasis at the left lung base. Electronically signed by Sanju Perkins 08/15/2017 7:24 AM
[2017-08-15] MEDS ORDERED: TYLENOL LIQUID PO ONE (08:11)
[2017-08-15] MEDS: PLAVIX PO SCH (08:50)
[2017-08-15] MEDS: POTASSIUM CHLORIDE 20% LIQUID PO SCH (08:50)
[2017-08-15] MEDS: ASPIRIN NG SCH (08:50)
[2017-08-15] MEDS: BICITRA PO SCH ×2 (08:50→20:21)
[2017-08-15] MEDS: LOPRESSOR PO SCH ×2 (08:50→20:21)
[2017-08-15] MEDS: LASIX IV SCH (08:50)
[2017-08-15] MEDS: LANTUS SUBQ SCH (08:54)
--- NOTE | 2017-08-15 09:57 | PROGRESS NOTE ---
DATE: 08/15/2017 Mr. Albrecht is a little more alert. He is grimacing, moving his extremities. He is running fever, has tachycardia, heart rate around 112. Physical examination is unchanged except for increasing pulmonary congestion. Chest x-ray shows slight worsening of the pneumonia. Overall condition is unchanged. Arterial blood gases are satisfactory. CBC shows a hemoglobin of 8.7, white count is 11.62. Potassium is 3.3. Rest of the values are unchanged. Sodium is 155. We will continue the current management on him. He is running a low-grade fever today. cc: Casimiro Reeves MD
[2017-08-15] MEDS: PROTONIX IV SCH (11:20)
[2017-08-15] MEDS: SODIUM CHLORIDE 0.9% INJ SCH (11:20)
[2017-08-15] MEDS: MAXIPIME 1 GM in NS 50 ML IV SCH (15:22)
[2017-08-15] MEDS: MORPHINE IV PRN (15:23)
[2017-08-15] MEDS: TYLENOL LIQUID PO PRN (16:44)
[2017-08-15] MEDS: LOVENOX SUBQ SCH (20:21)
[2017-08-16] MEDS: HUMULIN R SUBQ SCH ×6 (00:03→20:03)
[2017-08-16] MEDS: TYLENOL LIQUID PO PRN (00:04)
[2017-08-16] MEDS: CARDIZEM PO SCH ×3 (00:04→16:40)
[2017-08-16] MEDS: MORPHINE IV PRN ×2 (00:07→20:34)
[2017-08-16] MEDS: DUONEB (A & A) INH SCH ×4 (03:40→19:23)
[2017-08-16] MEDS: MAXIPIME 1 GM in NS 50 ML IV SCH ×2 (04:23→15:28)
[2017-08-16] MEDS: APRESOLINE PO SCH ×3 (04:28→20:03)
[2017-08-16 04:42] LABS: ALLEN TEST YES; BE 4.6 mmoll (-3.0-3.0); BLOOD TYPE ARTERIAL; DRAW SITE R RADIAL; O2(CT) 10.3 mL/dL (15.0-23.0); PCO2(98.6) 35 mmHg (35-45); PO2(98.6) 67 mmHg (60-100); SAMPLE BLOOD; SAO2 97.4 % (95.0-100.0); THB 7.7 g/dL (11.5-17.4); pH(98.6) 7.51 (7.35-7.45)
[2017-08-16 04:44] LABS: MODALITY VENTILATOR
[2017-08-16 05:58] LABS: HEMATOCRIT 27.9 % (42.0-52.0); HEMOGLOBIN 8.5 g/dL (14.0-18.0); MCH 31.8 PG (27-31); MCHC 30.5 g/dL (33-37); MCV 104.5 FL (81-99); MPV 9.6 FL (7.4-10.4); RBC 2.67 XMIL (4.7-6.1)
[2017-08-16 06:16] LABS: ALBUMIN 2.9 g/dL (3.5-5.0); CALCIUM 9.7 mg/dL (8.8-10.2); POTASSIUM 3.9 mmol/L (3.5-5.1); TOTAL BILIRUBIN 0.24 mg/dL (0.20-1.00)
--- NOTE | 2017-08-16 07:36 | Diag Imaging Result Doc PS360 ---
CHEST-PORTABLE - 08/16/2017 INDICATION: respiratory failure TECHNIQUE: COMPARISON: 08/15/2017 FINDINGS: Support lines and tubes are stable. There is decrease in the bibasilar infiltrates. There is still extensive left basilar infiltrate. Stable cardiomegaly and pulmonary vascular congestion. No obvious edema. IMPRESSION: Improvement in aeration of the lung bases. Electronically signed by Sanju Perkins 08/16/2017 7:33 AM
[2017-08-16] MEDS ORDERED: INSULIN PEN NEEDLES ONE (08:43)
[2017-08-16] MEDS: BICITRA PO SCH ×2 (08:46→20:03)
[2017-08-16] MEDS: VANCOMYCIN 1 GM/NS 1 GM/250 ML IVPB IV SCH (08:46)
[2017-08-16] MEDS: LANTUS SUBQ SCH (08:47)
[2017-08-16] MEDS: LASIX IV SCH (08:47)
[2017-08-16] MEDS: LOPRESSOR PO SCH ×2 (08:47→20:03)
[2017-08-16] MEDS: PLAVIX PO SCH (08:47)
[2017-08-16] MEDS: ASPIRIN NG SCH (08:47)
[2017-08-16] MEDS: POTASSIUM CHLORIDE 20% LIQUID PO SCH (08:47)
[2017-08-16] MEDS ORDERED: D5W 1,000 ML IV SCH (09:20)
--- NOTE | 2017-08-16 09:33 | PROGRESS NOTE ---
DATE: 08/16/2017 Mr. Albrecht is much more alert. He had a tracheostomy done on Tuesday, which was about 4 days ago. His CBC shows white count of 12.92, hemoglobin is 8.5. ABGs are satisfactory with PO2 of 67. He is on 35% FiO2. Electrolytes continue to be stable with sodium of 159, indicating mild dehydration. BUN is 47, creatinine is 2.0. has been isolated from sputum. Blood cultures were drawn yesterday since he had bouts of fever. His temperature is down this morning. Overall condition is unchanged. We will continue with the current management on him. -4 cc: Casimiro Reeves MD
[2017-08-16] MEDS: PROTONIX IV SCH (10:22)
[2017-08-16] MEDS: SODIUM CHLORIDE 0.9% INJ SCH (10:23)
[2017-08-16] MEDS ORDERED: LASIX IV ONE (20:00)
[2017-08-16] MEDS: LOVENOX SUBQ SCH (20:05)
[2017-08-17] MEDS: CARDIZEM PO SCH ×3 (00:15→16:01)
[2017-08-17] MEDS: TYLENOL LIQUID PO PRN ×2 (00:15→11:19)
[2017-08-17] MEDS: HUMULIN R SUBQ SCH ×6 (00:15→19:47)
[2017-08-17] MEDS: MORPHINE IV PRN (01:21)
[2017-08-17] MEDS: MAXIPIME 1 GM in NS 50 ML IV SCH ×2 (02:35→16:01)
[2017-08-17] MEDS: DUONEB (A & A) INH SCH ×4 (02:45→19:33)
[2017-08-17 04:23] LABS: ALLEN TEST YES; BE 5.5 mmoll (-3.0-3.0); BLOOD TYPE ARTERIAL; DRAW SITE R RADIAL; METHB 1.3 % (0.0-1.5); O2(CT) 15.1 mL/dL (15.0-23.0); PCO2(98.6) 36 mmHg (35-45); PO2(98.6) 99 mmHg (60-100); SAMPLE BLOOD; SAO2 99.2 % (95.0-100.0); THB 11.1 g/dL (11.5-17.4); pH(98.6) 7.51 (7.35-7.45)
[2017-08-17 04:24] LABS: MODALITY VENTILATOR
[2017-08-17] MEDS: APRESOLINE PO SCH ×4 (04:47→21:12)
[2017-08-17 05:00] LABS: HEMATOCRIT 27.3 % (42.0-52.0); HEMOGLOBIN 8.3 g/dL (14.0-18.0); MCH 32.8 PG (27-31); MCHC 30.4 g/dL (33-37); MCV 107.9 FL (81-99); MPV 10.3 FL (7.4-10.4); RBC 2.53 XMIL (4.7-6.1)
[2017-08-17 05:16] LABS: ALBUMIN 2.7 g/dL (3.5-5.0); CALCIUM 9.3 mg/dL (8.8-10.2); POTASSIUM 3.8 mmol/L (3.5-5.1); TOTAL BILIRUBIN 0.19 mg/dL (0.20-1.00); TOTAL PROTEIN 5.7 g/dL (6.3-8.3)
--- NOTE | 2017-08-17 07:23 | Diag Imaging Result Doc PS360 ---
EXAM: CHEST-PORTABLE HISTORY: respiratory failure TECHNIQUE: AP portable at 0500 COMMENT: There is a tracheostomy tube. There is an NG tube which appears to pass below the diaphragm. There is a right-sided PICC line. There is a left pleural effusion. The inspiration is less optimal than on 08/16/2017, otherwise has been no appreciable change. IMPRESSION: Left pleural effusion. Left lower lobe atelectasis versus pneumonia. Electronically signed by Altaf Butt 08/17/2017 7:21 AM
[2017-08-17] MEDS: LANTUS SUBQ SCH (08:15)
[2017-08-17] MEDS: POTASSIUM CHLORIDE 20% LIQUID PO SCH (08:15)
[2017-08-17] MEDS: PLAVIX PO SCH (08:15)
[2017-08-17] MEDS: LOPRESSOR PO SCH ×3 (08:16→21:13)
[2017-08-17] MEDS: LASIX IV SCH (08:16)
[2017-08-17] MEDS: ASPIRIN NG SCH (08:16)
[2017-08-17] MEDS: BICITRA PO SCH ×3 (08:16→21:13)
--- NOTE | 2017-08-17 09:35 | PROGRESS NOTE ---
DATE: 08/17/2017 Mr. Albrecht is in about the same general condition. He is getting a trach trial at the present time and he is tolerating it well so far. It has been about 15 minutes. The O2 saturation is 97. Blood pressure is slightly elevated. He is still not having too much trouble to breathe. White count was 14.95, hemoglobin 8.3. The ABGs were satisfactory and BUN is 47, creatinine 2. Electrolytes are normal. Blood cultures so far negative. Enterobacter cloacae was isolated from sputum. We will continue the current management on him. -8 cc: Casimiro Reeves MD
[2017-08-17] MEDS: PROTONIX IV SCH (11:19)
[2017-08-17] MEDS: SODIUM CHLORIDE 0.9% INJ SCH (11:19)
[2017-08-17] MEDS: D5W 1,000 ML IV SCH ×2 (12:47→22:47)
[2017-08-17] MEDS: LOVENOX SUBQ SCH (19:47)
[2017-08-17] MEDS ORDERED: LASIX IV ONE (20:00)
[2017-08-18] MEDS: HUMULIN R SUBQ SCH ×6 (00:53→20:12)
[2017-08-18] MEDS: CARDIZEM PO SCH ×3 (00:54→16:06)
[2017-08-18] MEDS: DUONEB (A & A) INH SCH ×4 (02:54→19:05)
[2017-08-18] MEDS: MAXIPIME 1 GM in NS 50 ML IV SCH ×2 (03:29→16:06)
[2017-08-18 04:30] LABS: ALLEN TEST YES; BLOOD TYPE ARTERIAL; DRAW SITE R RADIAL; METHB 1.5 % (0.0-1.5); O2(CT) 12.2 mL/dL (15.0-23.0); PCO2(98.6) 38 mmHg (35-45); PO2(98.6) 110 mmHg (60-100); SAMPLE BLOOD; SAO2 99.3 % (95.0-100.0); THB 8.9 g/dL (11.5-17.4)
[2017-08-18 04:31] LABS: MODALITY BI PAP
[2017-08-18] MEDS: APRESOLINE PO SCH ×3 (04:56→20:12)
[2017-08-18 05:27] LABS: MAGNESIUM 2.4 mg/dL (1.5-2.7)
[2017-08-18 05:33] LABS: ALBUMIN 3.1 g/dL (3.5-5.0); CALCIUM 9.1 mg/dL (8.8-10.2); HEMATOCRIT 27.3 % (42.0-52.0); HEMOGLOBIN 8.4 g/dL (14.0-18.0); MCH 32.9 PG (27-31); MCHC 30.8 g/dL (33-37); MCV 107.1 FL (81-99); MPV 10.2 FL (7.4-10.4); RBC 2.55 XMIL (4.7-6.1); TOTAL BILIRUBIN 0.29 mg/dL (0.20-1.00)
--- NOTE | 2017-08-18 07:09 | Diag Imaging Result Doc PS360 ---
EXAM: CHEST-PORTABLE HISTORY: respiratory failure TECHNIQUE: AP portable at 0500 COMMENT: There may be slight improvement in the alveolar and interstitial opacity over the left base compared to 08/17/2017. Otherwise, there has been no significant change. IMPRESSION: Improved pneumonia left lower lobe. Electronically signed by Altaf Butt 08/18/2017 7:07 AM
[2017-08-18] MEDS: POTASSIUM CHLORIDE 20% LIQUID PO SCH (08:31)
[2017-08-18] MEDS: LASIX IV SCH ×2 (08:31→20:12)
[2017-08-18] MEDS: BICITRA PO SCH ×2 (08:31→20:12)
[2017-08-18] MEDS: PLAVIX PO SCH (08:32)
[2017-08-18] MEDS: LANTUS SUBQ SCH (08:32)
[2017-08-18] MEDS: ASPIRIN NG SCH (08:32)
[2017-08-18] MEDS: LOPRESSOR PO SCH ×2 (08:32→20:12)
[2017-08-18] MEDS: D5W 1,000 ML IV SCH ×2 (08:33→17:12)
[2017-08-18] MEDS: VANCOMYCIN 1 GM/NS 1 GM/250 ML IVPB IV SCH (09:24)
--- NOTE | 2017-08-18 10:00 | PROGRESS NOTE ---
DATE: 08/18/2017 Mr. Albrecht is getting more alert. He has tracheostomy. CBC is unchanged except mild leukocytosis and anemia. Arterial blood gases are satisfactory. He is getting a trach trial at the present time. Electrolytes are stable. BUN and creatinine are almost unchanged. Chest x-ray shows improvement in the left lower lobe pneumonia. We will continue with the current management. He is going to be a long-term care patient. cc: Casimiro Reeves MD
[2017-08-18] MEDS: PROTONIX IV SCH (12:05)
[2017-08-18] MEDS: SODIUM CHLORIDE 0.9% INJ SCH (12:05)
[2017-08-18] MEDS: LOVENOX SUBQ SCH (20:14)
[2017-08-19] MEDS: HUMULIN R SUBQ SCH ×6 (00:14→19:37)
[2017-08-19] MEDS: CARDIZEM PO SCH ×3 (00:14→16:03)
[2017-08-19] MEDS: MORPHINE IV PRN (00:18)
[2017-08-19] MEDS: DUONEB (A & A) INH SCH ×4 (02:50→21:20)
[2017-08-19] MEDS: MAXIPIME 1 GM in NS 50 ML IV SCH ×2 (03:39→16:03)
[2017-08-19 04:29] LABS: ALLEN TEST YES; BE 4.7 mmoll (-3.0-3.0); BLOOD TYPE ARTERIAL; DRAW SITE R RADIAL; METHB 0.9 % (0.0-1.5); O2(CT) 16.8 mL/dL (15.0-23.0); PCO2(98.6) 37 mmHg (35-45); PO2(98.6) 92 mmHg (60-100); SAMPLE BLOOD; SAO2 98.6 % (95.0-100.0); THB 12.4 g/dL (11.5-17.4); pH(98.6) 7.49 (7.35-7.45)
[2017-08-19 04:30] LABS: MODALITY VENTILATOR
[2017-08-19 05:09] LABS: ALBUMIN 2.7 g/dL (3.5-5.0); CALCIUM 9.3 mg/dL (8.8-10.2); POTASSIUM 3.9 mmol/L (3.5-5.1); TOTAL BILIRUBIN 0.26 mg/dL (0.20-1.00); TOTAL PROTEIN 5.5 g/dL (6.3-8.3)
[2017-08-19 05:10] LABS: HEMATOCRIT 25.9 % (42.0-52.0); MCH 32.5 PG (27-31); MCHC 30.9 g/dL (33-37); MCV 105.3 FL (81-99); MPV 10.5 FL (7.4-10.4); PLT 244 X1000 (130-400); RBC 2.46 XMIL (4.7-6.1)
[2017-08-19] MEDS: APRESOLINE PO SCH ×3 (05:22→20:21)
[2017-08-19 05:34] LABS: LYMPHS 9 % (21-51); MONO 4 % (1-9)
--- NOTE | 2017-08-19 07:42 | Diag Imaging Result Doc PS360 ---
EXAM: CHEST-PORTABLE INDICATION: respiratory failure TECHNIQUE: One view COMPARISON: 08/18/2017 FINDINGS: The patient is rotated toward the right. Support tubes and lines are in stable positions. The left basilar consolidation is approximately stable given differences in positioning. No new consolidation is appreciated. Cardiac silhouette is stable. IMPRESSION: Grossly stable chest. Electronically signed by Hasmukh Matos 08/19/2017 7:39 AM
[2017-08-19] MEDS: LOPRESSOR PO SCH ×2 (08:35→20:21)
[2017-08-19] MEDS: BICITRA PO SCH ×2 (08:35→20:20)
[2017-08-19] MEDS: PLAVIX PO SCH (08:35)
[2017-08-19] MEDS: LASIX IV SCH ×2 (08:35→20:20)
[2017-08-19] MEDS: ASPIRIN NG SCH (08:35)
[2017-08-19] MEDS: POTASSIUM CHLORIDE 20% LIQUID PO SCH (08:35)
[2017-08-19] MEDS: LANTUS SUBQ SCH (08:36)
[2017-08-19] MEDS ORDERED: VANCOMYCIN IV PER PHARMACY MISC SCH (10:45)
--- NOTE | 2017-08-19 11:08 | PROGRESS NOTE ---
DATE: 08/19/2017 SUBJECTIVE: Mr. Albrecht has a tracheostomy. He is on 35% oxygen and he is in BiPAP mode. He is off the vent. So far he is tolerating oxygen saturation. He is 98%. Heart rate is 78, blood pressure is normal. His CBC shows hemoglobin 8 g, hematocrit 25.9, white count 17.69. ABGs were satisfactory. Chest x-ray is unremarkable. Electrolytes are normal. BUN and creatinine are slowly improving. Overall condition is improving, however it seems like he is going to be chronic long-term care. He is being followed actively by Dr. Reeves. He had 1 episode of ventricular tachycardia. We will continue the current management on him. cc: Casimiro Reeves MD
[2017-08-19] MEDS: SODIUM CHLORIDE 0.9% INJ SCH (11:22)
[2017-08-19] MEDS: PROTONIX IV SCH (11:22)
[2017-08-19] MEDS: ATIVAN IV PRN (19:37)
[2017-08-19] MEDS: LOVENOX SUBQ SCH (19:37)
[2017-08-20] MEDS: DUONEB (A & A) INH SCH ×4 (03:15→21:54)
[2017-08-20] MEDS: MAXIPIME 1 GM in NS 50 ML IV SCH (03:21)
[2017-08-20] MEDS: HUMULIN R SUBQ SCH ×7 (03:21→23:02)
[2017-08-20] MEDS: TYLENOL LIQUID PO PRN (03:34)
[2017-08-20 04:45] LABS: ALLEN TEST YES; BE 5.5 mmoll (-3.0-3.0); BLOOD TYPE ARTERIAL; DRAW SITE R RADIAL; METHB 1.4 % (0.0-1.5); O2(CT) 12.6 mL/dL (15.0-23.0); PCO2(98.6) 34 mmHg (35-45); PO2(98.6) 123 mmHg (60-100); SAMPLE BLOOD; SAO2 99.4 % (95.0-100.0); THB 9.1 g/dL (11.5-17.4); pH(98.6) 7.53 (7.35-7.45)
[2017-08-20 04:53] LABS: MODALITY BI PAP
[2017-08-20] MEDS: APRESOLINE PO SCH ×3 (05:26→20:11)
[2017-08-20 06:12] LABS: HEMATOCRIT 24.6 % (42.0-52.0); HEMOGLOBIN 7.6 g/dL (14.0-18.0); MCH 32.5 PG (27-31); MCHC 30.9 g/dL (33-37); MCV 105.1 FL (81-99); MPV 11.3 FL (7.4-10.4); RBC 2.34 XMIL (4.7-6.1)
[2017-08-20 06:15] LABS: ALBUMIN 2.7 g/dL (3.5-5.0); CALCIUM 8.7 mg/dL (8.8-10.2); TOTAL BILIRUBIN 0.23 mg/dL (0.20-1.00); TOTAL PROTEIN 5.6 g/dL (6.3-8.3)
[2017-08-20] MEDS: VANCOMYCIN 1 GM/NS 1 GM/250 ML IVPB IV SCH (07:56)
--- NOTE | 2017-08-20 08:05 | Diag Imaging Result Doc PS360 ---
EXAM: CHEST-PORTABLE INDICATION: respiratory failure TECHNIQUE: One view COMPARISON: 08/19/2017 FINDINGS: Support tubes and lines are in stable positions. The left basilar consolidation is probably marginally improved. No new consolidations are appreciated. Cardiac silhouette is stable. IMPRESSION: Marginal improvement of the left basilar consolidation. Electronically signed by Hasmukh Matos 08/20/2017 8:03 AM
[2017-08-20] MEDS: LASIX IV SCH ×2 (09:55→20:10)
[2017-08-20] MEDS: ASPIRIN NG SCH (09:55)
[2017-08-20] MEDS: BICITRA PO SCH ×2 (09:55→20:10)
[2017-08-20] MEDS: LOPRESSOR PO SCH ×2 (09:55→20:11)
[2017-08-20] MEDS: PLAVIX PO SCH (09:55)
[2017-08-20] MEDS: CARDIZEM PO SCH ×3 (09:55→17:00)
[2017-08-20] MEDS: POTASSIUM CHLORIDE 20% LIQUID PO SCH (10:00)
[2017-08-20] MEDS: LANTUS SUBQ SCH (10:12)
[2017-08-20] MEDS: PROTONIX IV SCH (12:43)
--- NOTE | 2017-08-20 13:08 | PROGRESS NOTE ---
DATE: 08/20/2017 SUBJECTIVE: Patient remains in the ICU. Tracheostomy in place and patient off of vent and on BiPAP. OBJECTIVE: Vital signs: T-max 99.9 degrees axillary, pulse 107, respirations 41, O2 saturations 99 to 100%, blood pressure 130/58. I Os 2620 in, 2100 out. Positive bowel movement. CV: RRR. Lungs: Rhonchi bilaterally. Upper airway noise. Abdomen: Protuberant, soft. Active bowel sounds. Nondistended. Extremities: No significant edema. Bandage in place right heel. LABS: Shows sodium 147, potassium 4.0, chloride 106, CO2 26, BUN 57, creatinine 1.9, glucose 242, calcium 8.7, total bilirubin 0.23, AST 13, ALT 15, alkaline phosphatase 90, total protein 5.6, albumin 2.7. White blood cell count 15, hemoglobin 7.6, hematocrit 24.6, platelets 248,000. ASSESSMENT: 1. Tracheostomy. 2. Respiratory failure. 3. History of sinus tachycardia and atrial fibrillation. 4. Pneumonia. 5. Hypertension. 6. Hypernatremia. 7. Chronic obstructive pulmonary disease. 8. History of alcohol abuse. 9. Anemia. 10. Diabetes mellitus. PLAN: Continue IV antibiotics. Continue Plavix, aspirin, Lovenox, Cardizem, Lasix. Continue supportive care, monitoring labs, and will consider transfusion if his hemoglobin declines. cc: MD Casimiro Moore MD
[2017-08-20] MEDS: MAXIPIME 1 GM/D5W 1 GM/50 ML IVPB IV SCH (14:14)
[2017-08-20] MEDS: LOVENOX SUBQ SCH (19:25)
[2017-08-21] MEDS: MORPHINE IV PRN (01:29)
[2017-08-21] MEDS: CARDIZEM PO SCH ×3 (01:29→17:00)
[2017-08-21] MEDS: MAXIPIME 1 GM/D5W 1 GM/50 ML IVPB IV SCH ×2 (02:05→15:30)
[2017-08-21] MEDS: HUMULIN R SUBQ SCH ×5 (03:12→20:06)
[2017-08-21] MEDS: DUONEB (A & A) INH SCH ×4 (03:45→19:06)
[2017-08-21] MEDS: APRESOLINE PO SCH ×3 (04:29→21:14)
[2017-08-21 05:23] LABS: ALLEN TEST YES; BE 6.3 mmoll (-3.0-3.0); BLOOD TYPE ARTERIAL; DRAW SITE L RADIAL; METHB 1.2 % (0.0-1.5); PCO2(98.6) 41 mmHg (35-45); PO2(98.6) 107 mmHg (60-100); SAMPLE BLOOD; SAO2 99.2 % (95.0-100.0); THB 18.4 g/dL (11.5-17.4); pH(98.6) 7.48 (7.35-7.45)
[2017-08-21 05:24] LABS: MODALITY VENTILATOR
[2017-08-21 06:00] LABS: HEMATOCRIT 23.5 % (42.0-52.0); HEMOGLOBIN 7.2 g/dL (14.0-18.0); MCH 31.7 PG (27-31); MCHC 30.6 g/dL (33-37); MCV 103.5 FL (81-99); MPV 11.6 FL (7.4-10.4); RBC 2.27 XMIL (4.7-6.1)
[2017-08-21 06:30] LABS: ALBUMIN 2.7 g/dL (3.5-5.0); CALCIUM 8.7 mg/dL (8.8-10.2); POTASSIUM 4.4 mmol/L (3.5-5.1); TOTAL BILIRUBIN 0.21 mg/dL (0.20-1.00); TOTAL PROTEIN 5.5 g/dL (6.3-8.3)
--- NOTE | 2017-08-21 08:06 | Diag Imaging Result Doc PS360 ---
EXAM: CHEST-PORTABLE INDICATION: respiratory failure TECHNIQUE: One view COMPARISON: 08/20/2017 FINDINGS: Support tubes and lines are in stable positions. Inspiration is suboptimal. Bilateral infiltrates representing edema +/- pneumonia, worse at the left lung base, are approximately stable given differences in inspiration. No new consolidation is identified cardiac silhouette is stable. IMPRESSION: Approximately stable chest. Electronically signed by Hasmukh Matos 08/21/2017 8:04 AM
[2017-08-21] MEDS ORDERED: INSULIN PEN NEEDLES ONE (08:42)
[2017-08-21] MEDS: ASPIRIN NG SCH (08:59)
[2017-08-21] MEDS: PLAVIX PO SCH (08:59)
[2017-08-21] MEDS: LOPRESSOR PO SCH ×2 (09:00→21:14)
[2017-08-21] MEDS: POTASSIUM CHLORIDE 20% LIQUID PO SCH (09:01)
[2017-08-21] MEDS: BICITRA PO SCH ×2 (09:02→21:14)
[2017-08-21] MEDS: LASIX IV SCH ×2 (09:02→21:15)
[2017-08-21] MEDS: LANTUS SUBQ SCH (09:03)
[2017-08-21] MEDS: PROTONIX IV SCH (12:23)
--- NOTE | 2017-08-21 14:45 | PROGRESS NOTE ---
DATE: 08/21/2017 SUBJECTIVE: Patient continues in the ICU with tracheostomy in place. He is back on CPAP per ventilator. He is alert, looks about, has had some prominent increase in swelling and serous discharge from his right arm develop. OBJECTIVE: Vital Signs: Afebrile. Pulse 105, respirations 37, O2 saturation 98-100%. Cardiovascular: RRR. Lungs: Fairly clear. Abdomen: Protuberant, soft, nontender. Extremities: Lower extremities without significant edema. Right arm is markedly red and swollen. There is discharge dripping from it, which is serous in nature. Neurologic: Patient is alert, moves all extremities. LABORATORY STUDIES: White count of 12.7, hemoglobin 7.2, platelets 255,000. Sodium 150, potassium 4.4, chloride 108, CO2 28, BUN 60, creatinine 2.0, glucose 230. Liver function tests normal. Total protein 5.5, albumin 2.7. Chest x-ray: Stable, showing suboptimal inspiration, bilateral infiltrates, edema versus pneumonia at the lung bases, left greater than right. ASSESSMENT: 1. Right arm swelling, redness, and discharge. Rule out cellulitis associated with PICC line in the right arm. Rule out deep venous thrombosis. 2. Tracheostomy. 3. Respiratory failure. 4. History of sinus tachycardia and atrial fibrillation. 5. Pneumonia. 6. Hypertension. 7. Hypernatremia. 8. Chronic obstructive pulmonary disease. 9. History of alcohol abuse. 10. Anemia. 11. Diabetes mellitus. PLAN: Continue IV antibiotics in the form of vancomycin and cefepime. He is on aspirin and Plavix. We will check venous Doppler of the right upper extremity to rule out deep venous thrombosis. Otherwise, will discuss with Dr. Cruz about possibly changing out his PICC line and transfusing him 2 units of PRBCs, as his hemoglobin has declined to 7.2. Considerations are being given to try to transfer the patient to the long-term care facility in the long run. That will be resumed tomorrow. cc: MD Casimiro Moore MD
[2017-08-21] MEDS: LOVENOX SUBQ SCH (20:05)
[2017-08-22] MEDS: CARDIZEM PO SCH ×3 (01:22→17:00)
[2017-08-22] MEDS: HUMULIN R SUBQ SCH ×7 (01:23→23:48)
[2017-08-22] MEDS: MAXIPIME 1 GM/D5W 1 GM/50 ML IVPB IV SCH ×2 (02:41→14:17)
[2017-08-22] MEDS: DUONEB (A & A) INH SCH ×4 (03:30→19:02)
[2017-08-22 04:32] LABS: HEMATOCRIT 23.8 % (42.0-52.0); HEMOGLOBIN 7.4 g/dL (14.0-18.0); MCH 32.5 PG (27-31); MCHC 31.1 g/dL (33-37); MCV 104.4 FL (81-99); MPV 11.5 FL (7.4-10.4); RBC 2.28 XMIL (4.7-6.1)
[2017-08-22 04:35] LABS: PROTIME 10.5 Seconds (9.2-11.7)
[2017-08-22 04:38] LABS: ALLEN TEST YES; BE 8.1 mmoll (-3.0-3.0); BLOOD TYPE ARTERIAL; DRAW SITE R RADIAL; METHB 1.3 % (0.0-1.5); O2(CT) 16.4 mL/dL (15.0-23.0); PCO2(98.6) 41 mmHg (35-45); PO2(98.6) 114 mmHg (60-100); SAMPLE BLOOD; SAO2 99.4 % (95.0-100.0)
[2017-08-22 04:39] LABS: MODALITY VENTILATOR
[2017-08-22 05:15] LABS: ALBUMIN 2.7 g/dL (3.5-5.0); CALCIUM 9.2 mg/dL (8.8-10.2); POTASSIUM 4.5 mmol/L (3.5-5.1); TOTAL BILIRUBIN 0.19 mg/dL (0.20-1.00); TOTAL PROTEIN 5.9 g/dL (6.3-8.3)
[2017-08-22] MEDS: APRESOLINE PO SCH ×3 (05:36→21:13)
--- NOTE | 2017-08-22 07:29 | Diag Imaging Result Doc PS360 ---
CHEST-PORTABLE - 08/22/2017 INDICATION: respiratory failure TECHNIQUE: COMPARISON: 08/21/2017 FINDINGS: Support lines and tubes are stable. Lung volumes are improved. There is improvement in the diffuse pulmonary vascular congestion. There is some residual infiltrate in the left lower lobe. Otherwise the lungs are more clear today. Heart size remains top normal. IMPRESSION: Improvement from prior. Electronically signed by Sanju Perkins 08/22/2017 7:27 AM
[2017-08-22] MEDS: PLAVIX PO SCH (08:03)
[2017-08-22] MEDS: LASIX IV SCH ×2 (08:03→21:13)
[2017-08-22] MEDS: LOPRESSOR PO SCH ×2 (08:03→21:13)
[2017-08-22] MEDS: BICITRA PO SCH (08:03)
[2017-08-22] MEDS: ASPIRIN NG SCH (08:04)
[2017-08-22] MEDS: LANTUS SUBQ SCH (08:04)
[2017-08-22] MEDS: POTASSIUM CHLORIDE 20% LIQUID PO SCH (08:05)
[2017-08-22] MEDS: VANCOMYCIN 1,500 MG in NS 250 ML IV SCH (08:58)
--- NOTE | 2017-08-22 09:56 | PROGRESS NOTE ---
DATE: 08/22/2017 Mr. Albrecht is in about the same general condition. He is getting trach trial this morning. His hemoglobin, however, has dropped to 7.4, white count is 11.72. Arterial blood gases are satisfactory. BUN and creatinine are about the same. Potassium is 4.5. Sugar was 206. The overall condition is unchanged. We are trying to find his son to get an okay for transfer to an LTAC services. -8 cc: Casimiro Reeves MD
[2017-08-22] MEDS: SODIUM CHLORIDE 0.9% INJ SCH (12:31)
[2017-08-22] MEDS: PROTONIX IV SCH (12:31)
[2017-08-22] MEDS: LOVENOX SUBQ SCH (20:19)
[2017-08-23] MEDS: CARDIZEM PO SCH ×3 (01:30→16:17)
[2017-08-23] MEDS: DUONEB (A & A) INH SCH ×4 (03:00→21:20)
[2017-08-23] MEDS: HUMULIN R SUBQ SCH ×6 (03:43→23:41)
[2017-08-23] MEDS: MAXIPIME 1 GM/D5W 1 GM/50 ML IVPB IV SCH ×2 (03:43→14:44)
[2017-08-23 04:24] LABS: ALLEN TEST YES; BE 8.5 mmoll (-3.0-3.0); BLOOD TYPE ARTERIAL; DRAW SITE R RADIAL; METHB 1.3 % (0.0-1.5); O2(CT) 15.6 mL/dL (15.0-23.0); PCO2(98.6) 37 mmHg (35-45); PO2(98.6) 113 mmHg (60-100); SAMPLE BLOOD; SAO2 99.6 % (95.0-100.0); THB 11.4 g/dL (11.5-17.4); pH(98.6) 7.54 (7.35-7.45)
[2017-08-23 04:26] LABS: MODALITY VENTILATOR
[2017-08-23] MEDS: APRESOLINE PO SCH ×3 (05:32→20:34)
[2017-08-23 05:46] LABS: ALBUMIN 2.9 g/dL (3.5-5.0); CALCIUM 8.9 mg/dL (8.8-10.2); POTASSIUM 4.5 mmol/L (3.5-5.1); TOTAL BILIRUBIN 0.23 mg/dL (0.20-1.00); TOTAL PROTEIN 6.2 g/dL (6.3-8.3)
[2017-08-23 05:51] LABS: HEMATOCRIT 25.9 % (42.0-52.0); MCH 32.7 PG (27-31); MCHC 30.9 g/dL (33-37); MCV 105.7 FL (81-99); MPV 11.5 FL (7.4-10.4); RBC 2.45 XMIL (4.7-6.1)
--- NOTE | 2017-08-23 06:12 | Diag Imaging Result Doc PS360 ---
EXAM: CHEST-PORTABLE HISTORY: respiratory failure TECHNIQUE: Portable COMPARISON: 08/22/2017 FINDINGS: No change in the endotracheal tube, nasogastric tube, or in the right-sided PICC line. The heart is not enlarged. There are small infiltrates in the left base. The patient is rotated to the right. No pleural effusions identified. The overall appearance is similar to the prior exam. IMPRESSION: Stable chest Electronically signed by Hood Flores 08/23/2017 6:09 AM
[2017-08-23] MEDS: BICITRA PO SCH (08:20)
[2017-08-23] MEDS: POTASSIUM CHLORIDE 20% LIQUID PO SCH (08:20)
[2017-08-23] MEDS: LASIX IV SCH ×2 (08:20→20:34)
[2017-08-23] MEDS: LANTUS SUBQ SCH (08:20)
[2017-08-23] MEDS: ASPIRIN NG SCH (08:21)
[2017-08-23] MEDS: PLAVIX PO SCH (08:21)
[2017-08-23] MEDS: LOPRESSOR PO SCH ×2 (08:22→20:35)
--- NOTE | 2017-08-23 09:48 | PROGRESS NOTE ---
DATE: 08/23/2017 Mr. Albrecht is in about the same general condition. Chest x-ray is unchanged. Hemoglobin is 8 g. ABGs are satisfactory. He is in the CPAP mode with tracheostomy, and he is going to get trach trial today. We are waiting for LTAC to intervene and consult on him and probably transfer; however, they are waiting for the son to come up and give his consent. -7 cc: Casimiro Reeves MD
[2017-08-23] MEDS: PROTONIX IV SCH (11:30)
[2017-08-23] MEDS: SODIUM CHLORIDE 0.9% INJ SCH (11:30)
--- NOTE | 2017-08-23 16:55 | Extremity Venous Study ---
PROCEDURE NAME: Venous U/S Right Arm - 08/21/2017 RIGHT UPPER EXTREMITY VENOUS STUDY: REQUESTING PHYSICIAN: Dipak Singer MD REVENUE STAMP CLERK: Cammie. INDICATIONS: Edema. The patient does have a PICC line in that extremity. PROCEDURE: Right upper extremity venous duplex and color flow imaging. EQUIPMENT: [employer] E9 ultrasound system and a 9 LD transducer. FINDINGS: Images of the right upper extremity venous system with comparison the left subclavian vein were obtained in both sagittal and transverse planes. Doppler was used to evaluate veins for spontaneity, phasicity, respiratory excursion, and digital augmentation. RESULTS: Limited study secondary to patient's PICC line making it unable to view the basilic vein and short trach collar making the internal jugular vein difficult to see on the right side, but otherwise no obvious superficial or deep venous thrombosis. INTERPRETATION: Limited study as detailed above, but no obvious superficial or deep venous thrombosis noted in the right upper extremity. cc: MD Dipak Beckman MD Amit V. Vora, MD
[2017-08-23] MEDS: LOVENOX SUBQ SCH (20:26)
[2017-08-23] MEDS: ATIVAN IV PRN (20:35)
[2017-08-24] MEDS: CARDIZEM PO SCH ×3 (00:19→16:57)
[2017-08-24] MEDS: DUONEB (A & A) INH SCH ×4 (03:05→21:15)
[2017-08-24] MEDS: MAXIPIME 1 GM/D5W 1 GM/50 ML IVPB IV SCH ×2 (03:26→16:56)
[2017-08-24] MEDS: ATIVAN IV PRN (03:59)
[2017-08-24] MEDS: HUMULIN R SUBQ SCH ×6 (03:59→23:51)
[2017-08-24] MEDS: APRESOLINE PO SCH ×3 (04:32→21:33)
[2017-08-24 05:08] LABS: ALLEN TEST YES; BE 8.9 mmoll (-3.0-3.0); BLOOD TYPE ARTERIAL; DRAW SITE R RADIAL; O2(CT) 11.8 mL/dL (15.0-23.0); PCO2(98.6) 41 mmHg (35-45); PO2(98.6) 111 mmHg (60-100); SAMPLE BLOOD; SAO2 99.2 % (95.0-100.0); THB 8.5 g/dL (11.5-17.4); pH(98.6) 7.51 (7.35-7.45)
[2017-08-24 05:09] LABS: MODALITY VENTILATOR
[2017-08-24 06:06] LABS: ALBUMIN 2.9 g/dL (3.5-5.0); CALCIUM 8.8 mg/dL (8.8-10.2); POTASSIUM 4.3 mmol/L (3.5-5.1); TOTAL BILIRUBIN 0.16 mg/dL (0.20-1.00); TOTAL PROTEIN 5.9 g/dL (6.3-8.3)
[2017-08-24 06:30] LABS: MCV 106.7 FL (81-99)
[2017-08-24 06:31] LABS: HEMATOCRIT 23.8 % (42.0-52.0); HEMOGLOBIN 7.3 g/dL (14.0-18.0); MCH 32.7 PG (27-31); MCHC 30.7 g/dL (33-37); PLT 292 X1000 (130-400); RBC 2.23 XMIL (4.7-6.1)
--- NOTE | 2017-08-24 07:30 | Diag Imaging Result Doc PS360 ---
CHEST-PORTABLE - 08/24/2017 INDICATION: respiratory failure TECHNIQUE: COMPARISON: 08/23/2017 FINDINGS: Support lines and tubes are stable. There is perhaps slight improvement in the right lower lobe infiltrate, as seen by better visualization of the right hemidiaphragm. Stable left basilar infiltrate. No new infiltrates. Heart size is top normal. IMPRESSION: Improved aeration of the right lung base. Electronically signed by Sanju Perkins 08/24/2017 7:27 AM
[2017-08-24] MEDS ORDERED: INSULIN PEN NEEDLES ONE (09:26)
--- NOTE | 2017-08-24 09:26 | PROGRESS NOTE ---
DATE: 08/24/2017 Mr. Albrecht is doing much better. He just kept on the oxygen at the present time with tracheostomy mask, and his ABGs have been stable. Her electrolytes are normal. BUN 56, creatinine 2.0. He gets the IV Lasix. A chest x-ray done this morning shows that there is improved aeration in the right lung base. We are waiting for his son to come to give his approval about possible transfer to LT, a long-term acute care [facility] facility in [place]. cc: Casimiro Reeves MD
[2017-08-24] MEDS: POTASSIUM CHLORIDE 20% LIQUID PO SCH (09:28)
[2017-08-24] MEDS: BICITRA PO SCH (09:28)
[2017-08-24] MEDS: PLAVIX PO SCH (09:29)
[2017-08-24] MEDS: LASIX IV SCH ×2 (09:29→21:33)
[2017-08-24] MEDS: LOPRESSOR PO SCH ×2 (09:29→21:33)
[2017-08-24] MEDS: ASPIRIN NG SCH (09:29)
[2017-08-24] MEDS: LANTUS SUBQ SCH (09:30)
[2017-08-24] MEDS: VANCOMYCIN 1,500 MG in NS 250 ML IV SCH (09:31)
[2017-08-24] MEDS: PROTONIX IV SCH (13:57)
[2017-08-24] MEDS: MORPHINE IV PRN (13:58)
[2017-08-24] MEDS: SODIUM CHLORIDE 0.9% INJ SCH (13:58)
[2017-08-24] MEDS: LOVENOX SUBQ SCH (20:33)
[2017-08-25] MEDS: CARDIZEM PO SCH ×4 (00:19→23:59)
[2017-08-25] MEDS: MAXIPIME 1 GM/D5W 1 GM/50 ML IVPB IV SCH ×2 (02:32→16:39)
[2017-08-25] MEDS: DUONEB (A & A) INH SCH ×4 (03:15→21:11)
[2017-08-25] MEDS: HUMULIN R SUBQ SCH ×6 (03:41→23:53)
[2017-08-25] MEDS: ATIVAN IV PRN (03:42)
[2017-08-25] MEDS: APRESOLINE PO SCH ×3 (04:52→20:16)
[2017-08-25 04:54] LABS: ALLEN TEST YES; BE 9.3 mmoll (-3.0-3.0); BLOOD TYPE ARTERIAL; DRAW SITE R RADIAL; METHB 1.5 % (0.0-1.5); O2(CT) 10.2 mL/dL (15.0-23.0); PCO2(98.6) 35 mmHg (35-45); PO2(98.6) 104 mmHg (60-100); SAMPLE BLOOD; SAO2 99.1 % (95.0-100.0); THB 7.4 g/dL (11.5-17.4)
[2017-08-25 04:55] LABS: MODALITY VENTILATOR; pH(98.6) 7.57 (7.35-7.45)
[2017-08-25 05:44] LABS: HEMATOCRIT 22.8 % (42.0-52.0); MCH 32.3 PG (27-31); MCHC 30.7 g/dL (33-37); MCV 105.1 FL (81-99); MPV 10.8 FL (7.4-10.4); RBC 2.17 XMIL (4.7-6.1)
[2017-08-25 06:26] LABS: ALBUMIN 2.8 g/dL (3.5-5.0); CALCIUM 8.8 mg/dL (8.8-10.2); POTASSIUM 4.7 mmol/L (3.5-5.1); TOTAL BILIRUBIN 0.23 mg/dL (0.20-1.00)
--- NOTE | 2017-08-25 06:33 | Diag Imaging Result Doc PS360 ---
EXAM: CHEST-PORTABLE HISTORY: respiratory failure TECHNIQUE: Portable AP COMPARISON: 08/24/2017 FINDINGS: The patient is rotated to the right. Tracheostomy tube is in good position. No change in the nasogastric tube. The heart is not enlarged. The vessels are not distended. Left basilar infiltrates are slightly less dense. No pleural effusions. IMPRESSION: Mild interval improvement. Electronically signed by Hood Flores 08/25/2017 6:31 AM
[2017-08-25] MEDS: ASPIRIN NG SCH (08:36)
[2017-08-25] MEDS: LOPRESSOR PO SCH ×2 (08:36→20:17)
[2017-08-25] MEDS: BICITRA PO SCH (08:36)
[2017-08-25] MEDS: PLAVIX PO SCH (08:36)
[2017-08-25] MEDS: LASIX IV SCH ×2 (08:36→20:16)
[2017-08-25] MEDS: POTASSIUM CHLORIDE 20% LIQUID PO SCH (08:36)
[2017-08-25] MEDS: LANTUS SUBQ SCH (08:38)
--- NOTE | 2017-08-25 09:42 | PROGRESS NOTE ---
DATE: 08/25/2017 Mr. Albrecht is about the same general condition. He is getting oxygen through the tracheostomy. His heart rate is around 94. O2 saturation is 99%. His chest x-ray shows further improvement and hemoglobin is 7 g. He is going to be evaluated by the LTAC services about a possible transfer. -8 cc: Casimiro Reeves MD
[2017-08-25] MEDS: PROTONIX IV SCH (12:18)
[2017-08-25] MEDS: SODIUM CHLORIDE 0.9% INJ SCH (12:18)
[2017-08-25] MEDS ORDERED: LASIX IV ONE (17:00)
[2017-08-25] MEDS ORDERED: NS 500 ML ONE (17:11)
--- NOTE | 2017-08-25 18:33 | PROGRESS NOTE ---
DATE: 08/25/2017 SUBJECTIVE: I was asked to potentially place a PEG tube in this gentleman. My partner, Dr. Nam, and been seeing him previously, placed a tracheostomy on him. He is being arranged for potential transfer to LTAC and needed more definitive secure long-term feeding access. I did discuss with the family. They voiced understanding and wished to proceed with the procedure. OBJECTIVE: Patient is currently sitting in his ICU bed. Somewhat arousable.Vital Signs: Have been stable. He is breathing through a trach mask. He has NG tube in place. General: No acute distress. Cardiovascular: Regular rate and rhythm. Lungs: Some coarse airway noises noted. Abdomen: Protuberant, but soft. No surgical scars noted in the upper abdomen. No tenderness. LABORATORY: Reviewed. His platelet counts within normal limits. His INR is within normal limits. ASSESSMENT AND PLAN: A 71-year-old, male with multiple medical comorbidities with need for long-term feeding access. 1. Multiple medical comorbidities. Currently being managed by his primary care team. There is potential for him to be transferred to a long-term acute care hospital in [place]. 2. Need for definitive feeding access. At this time, we will place a PEG tube. Discussed the risks, benefits, alternatives with the family. Risks including, but not limited to, bleeding, infection, risk of dislodgement causing need for further surgery, risk of damaging other surrounding tissues discussed. They voiced understanding and wished to consent to the procedure we will try to do it tomorrow. cc: MD Casimiro Beckman MD
[2017-08-25] MEDS: LOVENOX SUBQ SCH (20:16)
[2017-08-26] MEDS: DUONEB (A & A) INH SCH ×4 (03:40→21:06)
[2017-08-26] MEDS: MAXIPIME 1 GM/D5W 1 GM/50 ML IVPB IV SCH ×2 (03:44→16:13)
[2017-08-26] MEDS: HUMULIN R SUBQ SCH ×6 (03:44→23:41)
[2017-08-26 05:08] LABS: ALLEN TEST YES; BE 8.6 mmoll (-3.0-3.0); BLOOD TYPE ARTERIAL; DRAW SITE R RADIAL; METHB 1.7 % (0.0-1.5); O2(CT) 13.2 mL/dL (15.0-23.0); PCO2(98.6) 43 mmHg (35-45); PO2(98.6) 74 mmHg (60-100); SAMPLE BLOOD; SAO2 97.6 % (95.0-100.0); THB 9.9 g/dL (11.5-17.4); pH(98.6) 7.49 (7.35-7.45)
[2017-08-26] MEDS: APRESOLINE PO SCH ×3 (05:08→22:01)
[2017-08-26 05:09] LABS: MODALITY COOL AEROSOL
[2017-08-26 05:43] LABS: HEMATOCRIT 27.3 % (42.0-52.0); HEMOGLOBIN 8.9 g/dL (14.0-18.0); MCH 32.7 PG (27-31); MCHC 32.6 g/dL (33-37); MCV 100.4 FL (81-99); MPV 11.5 FL (7.4-10.4); RBC 2.72 XMIL (4.7-6.1)
[2017-08-26 05:47] LABS: POTASSIUM 4.4 mmol/L (3.5-5.1); TOTAL BILIRUBIN 0.19 mg/dL (0.20-1.00)
--- NOTE | 2017-08-26 07:31 | Diag Imaging Result Doc PS360 ---
CHEST-PORTABLE - 08/26/2017 INDICATION: respiratory failure TECHNIQUE: COMPARISON: 08/25/2017 FINDINGS: Support lines and tubes are stable. Stable cardiomegaly. Stable ill-defined left basilar infiltrate. There is decrease in the right basilar atelectasis. No new infiltrates. Lung volumes are slightly improved. IMPRESSION: Improvement from prior. Electronically signed by Sanju Perkins 08/26/2017 7:28 AM
--- NOTE | 2017-08-26 07:45 | PROGRESS NOTE ---
DATE: 08/26/2017 SUBJECTIVE: No major issues reported by nursing staff. His tube feeds have been held. I did discuss with this family about PEG tube. They voiced understanding. OBJECTIVE: Vital Signs: Patient is currently afebrile. His vital signs have been stable. General: No acute distress. Cardiovascular: Regular rate and rhythm. Lungs: Some coarse sounds. He has had a tracheostomy mask. Abdomen: Soft, protuberant, but no surgical scars. LABORATORY: Reviewed from this morning, platelet count 247,000 hematocrit 27. ASSESSMENT/PLAN: A 71-year-old male with multiple medical comorbidities needing long- term feeding access. 1. Multiple medical comorbidities, currently being managed by the primary team. 2. Need for definitive feeding access at this time. We will plan on percutaneous endoscopic gastrostomy tube. The risks, benefits, and alternatives were discussed. We will have him schedule for later today. cc: MD Casimiro Beckman MD
[2017-08-26] MEDS: LASIX IV SCH ×2 (08:53→20:40)
[2017-08-26] MEDS: LOPRESSOR PO SCH ×2 (08:53→22:01)
[2017-08-26] MEDS: POTASSIUM CHLORIDE 20% LIQUID PO SCH (08:53)
[2017-08-26] MEDS: PLAVIX PO SCH (08:53)
[2017-08-26] MEDS: CARDIZEM PO SCH ×2 (08:53→16:18)
[2017-08-26] MEDS: ASPIRIN NG SCH (08:53)
[2017-08-26] MEDS: BICITRA PO SCH (08:53)
[2017-08-26] MEDS: VANCOMYCIN 1,500 MG in NS 250 ML IV SCH (08:54)
[2017-08-26] MEDS: LANTUS SUBQ SCH (08:54)
--- NOTE | 2017-08-26 11:27 | PROGRESS NOTE ---
DATE: 08/26/2017 Mr. Albrecht is in about the same general condition. He received one unit of packed RBC transfusion. His hemoglobin has come up to 8.9, hematocrit is 27.3, white count is 14.29. Arterial blood gas remains satisfactory. Electrolytes are normal. BUN is down to 51, creatinine 2.0. He is going to get the PEG tube placed this afternoon by Dr. Morrow. After that, we will start feeding at the same rate and type of feeding, he is getting Jevity. Overall condition is unchanged. We will continue with the current management on him. cc: Casimiro Reeves MD
[2017-08-26] MEDS: PROTONIX IV SCH (12:23)
[2017-08-26] MEDS ORDERED: DIPRIVAN 1% ONE ×2 (13:50→14:19)
--- NOTE | 2017-08-26 22:28 | OPERATIVE NOTE ---
PROCEDURE DATE: 08/26/2017 PREOP DIAGNOSES: Dysphagia. POSTOPERATIVE DIAGNOSIS: 1. Dysphagia. 2. 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 PROCEDURE: 1. EGD. 2. Placement of percutaneous endoscopic gastrostomy tube 2 cm (24-Trinidadian). SURGEON: Tyler Morrow MD. SHEEP FARMER: None. ANESTHESIA: General endotracheal. INTRAOPERATIVE FINDINGS: As above. COMPLICATION: None at time dictation. ESTIMATED BLOOD LOSS: 5 mL. SPECIMENS REMOVED: None. BRIEF HISTORY: Patient is 71-year-old male with multiple medical comorbidities, he is status post tracheostomy, he needed long-term feeding access felt he benefit from a PEG tube. The risks, benefits, alternatives were discussed the family and all questions answered. DESCRIPTION OF PROCEDURE: After informed consent was obtained patient brought to the operative theater, transferred op table a supine position. IV anesthesia was performed. Patient was also placed the ventilator through his tracheostomy. After the formal time-out we turned our attention the mouth. We placed oral bite block, inserted esophagogastroduodenoscopy scope, passed it all the way to esophagus. We did see a pulsion diverticulum at the distal aspect, were able to get the scope into the stomach into the duodenum, I saw no obstructing lesions. We found a point of the abdominal wall that was 2 fingerbreadths below the xiphoid and 2 fingerbreadths lateral that was confirmed by digital palpation and transillumination. We prepped and draped this area in a sterile fashion. We then made a small skin incision through which we passed needle through seen directly enter into the stomach, we passed a wire through this, grasped by the snare of the EGD scope and brought it out, we then connected the PEG tube this and did pull the PEG back into the oropharynx and secured approximately 2 cm at the skin. We inserted the EGD scope and then confirmed that was good position freely mobile. We had to close the skin slightly with a 2-0 Vicryl with a Sajan needle given the size of a feeding tube but closed well, placed a sterile dressing. The patient tolerated procedure well, had an abdominal binder placed. Postoperatively will keep the tube to gravity for 6 hours. cc: MD Casimiro Beckman MD
[2017-08-27] MEDS: CARDIZEM PO SCH ×4 (01:46→16:49)
[2017-08-27] MEDS: MAXIPIME 1 GM/D5W 1 GM/50 ML IVPB IV SCH ×2 (02:42→15:52)
[2017-08-27] MEDS: DUONEB (A & A) INH SCH ×4 (03:39→21:05)
[2017-08-27] MEDS: HUMULIN R SUBQ SCH ×6 (04:03→23:04)
[2017-08-27 05:07] LABS: ALLEN TEST YES; BE 8.9 mmoll (-3.0-3.0); BLOOD TYPE ARTERIAL; DRAW SITE R RADIAL; O2(CT) 12.3 mL/dL (15.0-23.0); PCO2(98.6) 41 mmHg (35-45); PO2(98.6) 94 mmHg (60-100); SAMPLE BLOOD; SAO2 98.8 % (95.0-100.0); pH(98.6) 7.51 (7.35-7.45)
[2017-08-27 05:08] LABS: MODALITY COOL AEROSOL
[2017-08-27 06:19] LABS: HEMATOCRIT 26.8 % (42.0-52.0); HEMOGLOBIN 8.5 g/dL (14.0-18.0); MCH 32.1 PG (27-31); MCHC 31.7 g/dL (33-37); MCV 101.1 FL (81-99); MPV 10.7 FL (7.4-10.4); RBC 2.65 XMIL (4.7-6.1)
[2017-08-27] MEDS: APRESOLINE PO SCH ×4 (06:27→20:07)
[2017-08-27 06:42] LABS: ALBUMIN 2.9 g/dL (3.5-5.0); CALCIUM 9.1 mg/dL (8.8-10.2); TOTAL BILIRUBIN 0.24 mg/dL (0.20-1.00)
--- NOTE | 2017-08-27 09:01 | Diag Imaging Result Doc PS360 ---
CHEST-PORTABLE - 08/27/2017 INDICATION: respiratory failure TECHNIQUE: COMPARISON: 08/26/2017 FINDINGS: The nasogastric tube has been removed. Stable tracheostomy tube and right PICC line. Stable cardiomegaly. There is slight decrease in the density of the left basilar infiltrate or atelectasis. No new infiltrates. IMPRESSION: Slight improvement from prior. Electronically signed by Sanju Perkins 08/27/2017 8:59 AM
[2017-08-27] MEDS: PLAVIX PO SCH (09:19)
[2017-08-27] MEDS: BICITRA PO SCH (09:19)
[2017-08-27] MEDS: POTASSIUM CHLORIDE 20% LIQUID PO SCH (09:19)
[2017-08-27] MEDS: LASIX IV SCH ×2 (09:19→20:07)
[2017-08-27] MEDS: ASPIRIN NG SCH (09:19)
[2017-08-27] MEDS: LOPRESSOR PO SCH ×2 (09:20→20:07)
[2017-08-27] MEDS: LANTUS SUBQ SCH (09:26)
[2017-08-27] MEDS ORDERED: MORPHINE IV ONE (09:48)
[2017-08-27] MEDS ORDERED: ATIVAN IV ONE (09:48)
--- NOTE | 2017-08-27 10:31 | PROGRESS NOTE ---
DATE: 08/27/2017 SUBJECTIVE: Level 3 documentation. This 71-year-old white male has been admitted to the hospital since 07/19/2017 with pancreatitis, ARDS associated with atrial fibrillation, CHF, MRSA on the right elbow and unable to wean off the vent. He was transferred [facility]. Past medical history, past surgical history and medicines were reviewed. Interval history since I saw him on 08/06/2017: The patient had a tracheostomy and PEG was placed. REVIEW OF SYSTEMS: Not able to obtain. OBJECTIVE: Temperature is 97, respirations 19, blood pressure is 137/65, on trach collar 100%, weight 237 pounds. HEENT: Is edematous. Tracheostomy: Trach collar noted. Chest: Bilateral air entry. Heart sounds are regular. Abdomen: Belly is soft. A PEG was placed and Deutsch catheter was seen. Extremities: No peripheral edema or cyanosis. No obvious neurological deficits. INVESTIGATIONS: CBC: White cell count 13, hematocrit 26, platelets 367,000. ABG pH is 7.51, pCO2 41, PO2 94, bicarb 31. SMA 7: Sodium 147, potassium 4, chloride 103, BUN 50, creatinine 2.0, glucose 217. LFTs were normal. Repeat blood cultures on 08/15 were negative. sputum cultures Enterobacter and Staph aureus on the right elbow. ASSESSMENT AND PLAN: 1. Neurological exam is stable. Not able to follow with verbal commands. 2. Acute respiratory failure. Unable to wean off the vent status post trach. 3. Enterobacter pneumonia on IV vancomycin along with staphylococcus right elbow cellulitis improving. 4. History of pancreatitis stable. 5. Nutrition. Currently enteral feeding through the percutaneous endoscopic gastrostomy. 6. Gastrointestinal prophylaxis with IV Protonix. 7. Paroxysmal atrial fibrillation. On metoprolol and diltiazem. 8. IV antibiotics on cefepime. 9. Plan of care: He is going for custodial acute care once he is stable on Tuesday. LEVEL OF DOCUMENTATION: 35 minutes. cc: MD Casimiro Lazaro MD [facility]
--- NOTE | 2017-08-27 10:54 | PROGRESS NOTE ---
DATE: 08/27/2017 SUBJECTIVE: Mr. Albrecht is now postop day [address] Morrow. OBJECTIVE: The PEG site is okay without any drainage. PLAN: Will wait to use the PEG for another 24-48 hours. cc: MD Casimiro Tinsley MD
--- NOTE | 2017-08-27 11:18 | Diag Imaging Result Doc PS360 ---
CHEST-PORTABLE - 08/27/2017 INDICATION: central line placement TECHNIQUE: COMPARISON: 08/27/2017 FINDINGS: There is a new left subclavian central line with the catheter tip near the confluence of the brachiocephalic veins. Stable right PICC line. Stable endotracheal tube. Lung volumes are low but the lungs are grossly clear. Heart size is borderline enlarged. IMPRESSION: No complication. Electronically signed by Sanju Perkins 08/27/2017 11:16 AM
[2017-08-27] MEDS: PROTONIX IV SCH (11:53)
--- NOTE | 2017-08-27 16:59 | OPERATIVE NOTE ---
PROCEDURE DATE: PROCEDURE PERFORMED: Left subclavian central line placement. CLINICAL INDICATIONS: Critically ill patient in need of central venous access. DESCRIPTION OF PROCEDURE: After informed consent was obtained from the family, the patient was placed in Trendelenburg position. The left subclavian site was prepped and draped in the usual sterile fashion. Local anesthesia was achieved with 1% lidocaine. Sedation was achieved with morphine and Ativan. When patient was sedated and local anesthesia were achieved, a introducer needle was advanced under the left subclavian bone and the left subclavian vein was identified. There was good blood return. A guidewire was advanced through the hub of the needle without difficulty. Site was dilated with a vascular dilator. A triple-lumen catheter was advanced over the wire and sutured into position. There was good blood return from all 3 ports. Sterile dressing was applied by this practitioner. Chest x-ray is pending. cc: MD Casimiro Gonzalez MD
[2017-08-27] MEDS: MORPHINE IV PRN ×2 (18:56→22:56)
[2017-08-27] MEDS: ATIVAN IV PRN (21:36)
[2017-08-28] MEDS: CARDIZEM PO SCH ×3 (01:40→16:32)
[2017-08-28] MEDS: MAXIPIME 1 GM/D5W 1 GM/50 ML IVPB IV SCH ×2 (02:31→14:24)
[2017-08-28] MEDS: HUMULIN R SUBQ SCH ×6 (03:22→23:15)
[2017-08-28] MEDS: DUONEB (A & A) INH SCH ×4 (03:40→21:27)
[2017-08-28] MEDS: MORPHINE IV PRN ×5 (03:57→23:02)
[2017-08-28] MEDS: APRESOLINE PO SCH ×3 (04:26→23:09)
[2017-08-28 04:37] LABS: ALLEN TEST YES; BE 10.5 mmoll (-3.0-3.0); BLOOD TYPE ARTERIAL; DRAW SITE R RADIAL; METHB 1.3 % (0.0-1.5); O2(CT) 7.3 mL/dL (15.0-23.0); PCO2(98.6) 42 mmHg (35-45); PO2(98.6) 68 mmHg (60-100); SAMPLE BLOOD; SAO2 97.3 % (95.0-100.0); SRATE 20 BPM; THB 5.4 g/dL (11.5-17.4); TVOL 400 mL; pH(98.6) 7.52 (7.35-7.45)
[2017-08-28 04:38] LABS: MODALITY VENTILATOR
[2017-08-28 05:21] LABS: HEMATOCRIT 25.6 % (42.0-52.0); MCH 32.3 PG (27-31); MCHC 31.3 g/dL (33-37); MCV 103.2 FL (81-99); MPV 10.9 FL (7.4-10.4); RBC 2.48 XMIL (4.7-6.1)
[2017-08-28 05:47] LABS: ALBUMIN 2.8 g/dL (3.5-5.0); POTASSIUM 4.2 mmol/L (3.5-5.1); TOTAL BILIRUBIN 0.15 mg/dL (0.20-1.00); TOTAL PROTEIN 5.7 g/dL (6.3-8.3)
[2017-08-28] MEDS: LOPRESSOR PO SCH ×2 (08:20→20:21)
[2017-08-28] MEDS: PLAVIX PO SCH (08:20)
[2017-08-28] MEDS: LASIX IV SCH ×2 (08:20→20:21)
[2017-08-28] MEDS: ASPIRIN NG SCH (08:20)
[2017-08-28] MEDS: BICITRA PO SCH (08:20)
[2017-08-28] MEDS: POTASSIUM CHLORIDE 20% LIQUID PO SCH (08:20)
[2017-08-28] MEDS: LANTUS SUBQ SCH (08:21)
[2017-08-28] MEDS: VANCOMYCIN 1,500 MG in NS 250 ML IV SCH (08:33)
--- NOTE | 2017-08-28 08:48 | Diag Imaging Result Doc PS360 ---
CHEST-PORTABLE - 08/28/2017 INDICATION: respiratory failure TECHNIQUE: COMPARISON: 08/27/2017 FINDINGS: Stable tracheostomy tube and left central line. The right PICC line has been removed. Stable severely low lung volumes. There is increase in pulmonary vascular congestion. No significant infiltrates or effusions. IMPRESSION: 1. The right PICC line has been removed. 2. Increasing pulmonary vascular congestion. Severely low lung volumes. Electronically signed by Sanju Perkins 08/28/2017 8:45 AM
[2017-08-28] MEDS: HALDOL IV PRN (10:43)
[2017-08-28] MEDS: SODIUM CHLORIDE 0.9% INJ SCH (11:35)
[2017-08-28] MEDS: PROTONIX IV SCH (11:35)
--- NOTE | 2017-08-28 11:47 | PROGRESS NOTE ---
DATE: 08/28/2017 SUBJECTIVE: The patient is agitated. Interval history was reviewed. Right arm is swollen, edematous. PICC line was discontinued and the left subclavian was placed by Dr. Ordonez. REVIEW OF SYSTEMS: None reported. PHYSICAL EXAMINATION: Vital Signs: On examination, his temperature is 99 degrees, pulse is 98, respirations 28, blood pressure is 128/81, on trach collar, FiO2 30%. Is and Os positive 1820. HEENT Examination: Within normal limits and status post tracheostomy noted. Left subclavian catheter placed. Extremities: The right upper extremity is diffusely swollen. Chest: Bilateral air entry. Heart: Heart sounds very distant. Abdomen: Belly is soft where the PEG was placed. Genitalia: Deutsch was seen and no obvious deficits. INVESTIGATIONS: White cell count 12.9, hematocrit 25, platelets 335,000. ABG, pH is 7.52, pCO2 42, PO2 68 on assisted control with FiO2 of 40%, PEEP of 5. SMA 7: Sodium 147, potassium 4.2, chloride 103, BUN 52, creatinine 2.3, glucose 266. ASSESSMENT AND PLAN: 1. Neurological exam is stable. 2. Acute respiratory failure, status post tracheostomy. Intermittent ventilation as needed. 3. Right upper extremity swelling. Discontinue peripherally inserted central catheter line. Rule out deep venous thrombosis, venous Dopplers on the right upper extremity. 4. History of complicated pancreatitis, stable. 5. Dehydration with hyponatremia, elevation of BUN and creatinine. Free water 250 mL every 6 hours for 2 days. 6. Continue present medical therapy and status post triple-lumen catheter on the left side. Apparently planning to be discharged to the long-term acute care. LEVEL OF DOCUMENTATION: 25 minutes. cc: MD Casimiro Lazaro MD
[2017-08-28] MEDS: ATIVAN IV PRN (14:22)
[2017-08-29] MEDS: CARDIZEM PO SCH ×2 (02:03→09:42)
[2017-08-29] MEDS: ATIVAN IV PRN (03:04)
[2017-08-29] MEDS: MAXIPIME 1 GM/D5W 1 GM/50 ML IVPB IV SCH (03:16)
[2017-08-29] MEDS: DUONEB (A & A) INH SCH ×2 (03:22→09:32)
[2017-08-29] MEDS: HUMULIN R SUBQ SCH ×2 (03:26→09:40)
[2017-08-29 05:01] LABS: ALLEN TEST YES; BE 10.1 mmoll (-3.0-3.0); BLOOD TYPE ARTERIAL; DRAW SITE R RADIAL; METHB 1.5 % (0.0-1.5); O2(CT) 11.6 mL/dL (15.0-23.0); PCO2(98.6) 44 mmHg (35-45); PO2(98.6) 77 mmHg (60-100); SAMPLE BLOOD; SAO2 97.9 % (95.0-100.0); THB 8.6 g/dL (11.5-17.4)
[2017-08-29] MEDS: APRESOLINE PO SCH (05:01)
[2017-08-29 05:02] LABS: MODALITY COOL AEROSOL
[2017-08-29 05:41] LABS: HEMATOCRIT 26.2 % (42.0-52.0); HEMOGLOBIN 8.3 g/dL (14.0-18.0); MCH 32.2 PG (27-31); MCHC 31.7 g/dL (33-37); MCV 101.6 FL (81-99); MPV 10.6 FL (7.4-10.4); RBC 2.58 XMIL (4.7-6.1)
[2017-08-29 05:51] LABS: ALBUMIN 2.9 g/dL (3.5-5.0); CALCIUM 8.9 mg/dL (8.8-10.2); POTASSIUM 4.4 mmol/L (3.5-5.1); TOTAL BILIRUBIN 0.23 mg/dL (0.20-1.00); TOTAL PROTEIN 5.8 g/dL (6.3-8.3)
--- NOTE | 2017-08-29 07:24 | Diag Imaging Result Doc PS360 ---
EXAM: CHEST-PORTABLE INDICATION: respiratory failure TECHNIQUE: One view COMPARISON: 08/28/2017 FINDINGS: Support tubes and lines are in stable positions. Lung volumes remain low. There appears to be pulmonary venous congestion has slightly worsened, especially on the left. No other new consolidation is identified. Cardiac silhouette is stable. IMPRESSION: Suggestion of slight worsening of pulmonary venous congestion. Electronically signed by Hasmukh Matos 08/29/2017 7:22 AM
--- NOTE | 2017-08-29 09:25 | PROGRESS NOTE ---
DATE: 08/29/2017 Mr. Albrecht's general condition is about the same. Heart rate is 105. He is somewhat responsive. Opens his eyes done. He had a PEG tube placed in on Tuesday afternoon. His general condition is about the same. He has a tracheostomy tube. He does not lie down flat. At present, we are holding done the PEG tube feeding, but otherwise he is stable. We will continue. Chest x-ray shows slight worsening, but there are fluctuations present off and on since he has come. Will discharge him today to LT[facility]. cc: Casimiro Reeves MD
[2017-08-29] MEDS: ASPIRIN NG SCH (09:41)
[2017-08-29] MEDS: BICITRA PO SCH (09:41)
[2017-08-29] MEDS: LASIX IV SCH (09:42)
[2017-08-29] MEDS: LANTUS SUBQ SCH (09:42)
[2017-08-29] MEDS: PLAVIX PO SCH (09:43)
[2017-08-29] MEDS: LOPRESSOR PO SCH (09:43)
[2017-08-29] MEDS: HALDOL IV PRN (09:44)
[2017-08-29] MEDS: POTASSIUM CHLORIDE 20% LIQUID PO SCH (09:44)
[2017-08-29 09:53] VITALS: BP 171/81
--- NOTE | 2017-08-29 10:28 | DISCHARGE SUMMARY ---
ADMISSION DATE: 07/19/2017 DISCHARGE DATE: 08/29/2017 HISTORY: Mr. Albrecht, who is a 72-year-old white gentleman, came with some respiratory distress and acute ischemia of the lower extremities. He was in congestive heart failure. He had multiple chest x-rays. Made a chest, abdomen, and pelvic scan had revealed basilar atelectasis worse on the left side. Superimposed pneumonia could not be ruled out. The mesenteric stranding with possible acute pancreatitis. He received blood transfusions several times on account of chronic persistent nutritional anemia. Last hemoglobin, however, now is 8.3. White count is 15.42. INR was 1.0, and blood gases have been done numerous times. Blood gases revealed pH 7.5, pCO2 44, pO2 77. He has been on the vent for about a month, and he had tracheostomy and now, he is just getting the tracheostomy with tracheal trials and getting oxygen through the tracheostomy, some transient to CPAP mode. Electrolytes are normal. BUN 50, creatinine 2.2 and that has fluctuated. Urinalysis revealed too many RBCs. Total serum protein is 5.1, albumin 2.86. Gammaglobulin was 0.38, indicating hypoproteinemia. Vancomycin levels were done on several occasions. He has been on vancomycin almost throughout the stay. COURSE IN THE HOSPITAL: He had microbiology. It revealed a Staph aureus from the right elbow culture, MRSA. He also has Staphylococcus pseudintermedius and Enterobacter cloacae, and initially when he came in, he was kept on the blood thinners. Vascular surgical consult was obtained. No new treatment was offered. He did have a balloon angioplasty performed just about a month prior to the admission. He went into congestive heart failure. Had bilateral atelectasis and superimposed pneumonia. He went into severe respiratory distress. Dr. Ordonez was consulted. Dr. Yanes, ID physician, was also consulted for pneumonia and a staph infection in the elbow. He had severe respiratory distress. Initially, BiPAP was given and then he was placed on the respirator. He could not be weaned off the vent. After about 2 weeks, we started trying, and he could not be weaned off. Hence, tracheostomy was performed by Dr. Nam, and he tolerated it well. Chest x-ray continued to improve. He had a small pleural effusion and pneumonia on the left side. General condition was better. However, had an NG tube nutrition throughout, and he was tolerating it well. He did have some diarrhea intermittently. We referred him for long-term care at LTAC in [place], and they suggested that we should put a PEG tube, and the PEG tube was put in by Dr. Morrow. He has tolerated it well. His vital signs are stable. CLINICAL IMPRESSION: 1. Acute respiratory distress. 2. Bilateral pneumonia. 3. Congestive heart failure. 4. Staphylococcus infection, left elbow. 5. Severe peripheral arterial disease. 6. Coronary artery disease. 7. Hypertensive heart failure. PLAN: Patient's prognosis is poor. We will transfer him to LTAC services today for acute on chronic care. cc: Casimiro Reeves MD
--- NOTE | 2017-08-29 10:51 | DISCHARGE SUMMARY ---
ADMISSION DATE: 07/19/2017 DISCHARGE DATE: ADDENDUM: Mr. Albrecht has been on Plavix and aspirin for his PVD. He has diabetes mellitus, which is insulin dependent partly, and he is on metformin, as well as insulin and sliding scale. cc: Casimiro Reeves MD
--- NOTE | 2017-09-06 08:17 | Extremity Venous Study ---
PROCEDURE NAME: Venous U/S Right Arm - 08/28/2017 REFERRING PHYSICIAN: Silas DEMOGRAPHICS: A 71-year-old male. CLINICAL SOCIAL WORKER: Bettina Lilly RVT. INDICATIONS: The patient has edema of the right upper extremity with blisters involving his right arm PICC line. It has been removed. FINDINGS: Right subclavian and axillary veins were compressible and had flow through them. The right internal jugular vein was compressible and had flow through it. The brachial vein was compressible throughout its length right arm. The superficial veins, cephalic and basilic veins were compressible, as were the small veins in the antecubital fossa and right forearm. INTERPRETATION: Despite the swelling of the right upper extremity, there is no evidence of acute deep or superficial venous thrombosis in right upper extremity veins. cc: MD Camron Tinsley MD Amit V. Vora, MD
== END 2017-08-29 12:47 ==
LOC: SUPCPDRO → ED 11:53 → EDIPHOLD 17:06 → ICU 21:37
PROVIDERS: ADMIT Internal Medicine; ATTEND Internal Medicine

== ENCOUNTER 2019-08-14 11:09 | Inpatient (IN) ==
--- NOTE | 2019-08-14 12:35 | Diag Imaging Result Doc PS360 ---
EXAM: CHEST-1 VIEW INDICATION: SOB TECHNIQUE: One view COMPARISON: 02/15/2019 FINDINGS: The central vasculature appears mildly prominent suggesting mild pulmonary venous congestion. The lungs are grossly clear, otherwise. There is no discrete pleural fluid collection or pneumothorax. The cardiac silhouette appears somewhat prominent, probably, at least in part, due to magnification from AP technique. IMPRESSION: Mildly prominent central vasculature suggesting possible mild pulmonary venous congestion. Electronically signed by Hasmukh Matos 08/14/2019 12:33 PM
--- NOTE | 2019-08-14 12:36 | EKG Report ---
Test Performed on : 08/14/2019 11:27:21 AM Test Reason : SOB Blood Pressure : / mmHG Vent. Rate : 058 BPM Atrial Rate : 058 BPM P-R Int : 148 ms QRS Dur : 086 ms QT Int : 462 ms P-R-T Axes : -18 006 016 degrees QTc Int : 453 ms Sinus bradycardia. Otherwise normal ECG When compared with ECG of 15-FEB-2019 15:56, No significant change was found Unconfirmed Result
[2019-08-14 14:33] LABS: BASO# 0.05 X1000 (0.0-0.2); BASO% 0.5 % (0.0-0.8); EOS% 3.6 % (0.0-10.0); HEMATOCRIT 42.6 % (42.0-52.0); HEMOGLOBIN 13.7 g/dL (14.0-18.0); LYMPH# 1.36 X1000 (1.2-3.4); LYMPH% 12.4 % (20.5-51.1); MCH 30.6 PG (27-31); MCHC 32.2 g/dL (33-37); MCV 95.1 FL (81-99); MONO# 1.04 X1000 (0.11-0.59); MONO% 9.5 % (1.7-9.3); MPV 10.1 FL (7.4-10.4); NEUT# 8.15 X1000 (1.4-6.5); PLT 232 X1000 (130-400); RBC 4.48 XMIL (4.7-6.1); RDW 16.1 % (11.5-14.5)
[2019-08-14 14:48] LABS: ALB/GLOB RATIO 1.6; CALCIUM 9.5 mg/dL (8.8-10.2); CREATININE 1.3 mg/dL (0.7-1.2); POTASSIUM 4.7 mmol/L (3.5-5.1); TOTAL BILIRUBIN 0.23 mg/dL (0.20-1.00); TOTAL PROTEIN 6.5 g/dL (6.3-8.3)
[2019-08-14 14:58] LABS: BANDS 1 % (0-1); EOS 3 % (1-10); LYMPHS 16 % (21-51); MONO 4 % (1-9); SEGS 75 % (42-75)
[2019-08-14] MEDS ORDERED: LASIX IV ONE (15:42)
[2019-08-14] MEDS ORDERED: NEURONTIN PO SCH (17:00)
--- NOTE | 2019-08-14 17:36 | PROVIDER DOCUMENTATION ---
This chart was entered by Serene Tsang Scribe, acting as scribe for Dain Simeon MD. HPI-Respiratory General - General Chief Complaint: Shortness of Breath Stated Complaint: EDEMA Time Seen by Provider: 08/14/19 11:43 Source: patient, EMS, other (woker from SNF the pt lives at is at bedside) Allergies/Adverse Reactions: Patient Allergies Allergy/AdvReac Type Severity Reaction Status Date / Time codeine AdvReac Unknown Verified 04/04/18 09:09 Home Medications: Home Medication List Medication Instructions Recorded Confirmed Last Taken Type Metoprolol [Lopressor] 50 mg PO BID tablet 08/29/17 08/14/19 08/14/19 Rx 50 MG Furosemide [Lasix] 40 mg PO BID 04/01/18 08/14/19 08/14/19 History 40 MG Insulin Glargine [Lantus] 25 unit SUBQ QAM 04/04/18 08/14/19 08/14/19 History 25 UNIT Metformin [Glucophage] 500 mg PO BID CC tablet 04/10/18 08/14/19 08/14/19 Rx 500 MG Gabapentin 100 mg PO TID 08/14/19 08/14/19 08/14/19 History 100 MG Mirtazapine 30 mg PO DAILY 08/14/19 08/14/19 08/14/19 History 30 MG - History of Present Illness-Resp Nature of Presenting Problem: 73 yowm presents to the ed via ems with c/o sob, gerd and n/v this am. pt sts he feels better now. pt sts felt well this am went to breakfast and came back to his room and fell asleep. pt woke he had gerd sx with n/v x1 with sob and care facility sent his to ed to be checked out Quality of Pain: reports: burning Severity in ED: reports: moderate Onset/Duration: reports: just prior to arrival Timing: reports: improving Cough Quality/Degree: reports: no cough Current Respiratory Medication Therapy: Initiated see nurses note Modifying Factors: improves with: rest, sitting upright. worse with: exertion, lying down Associated Symptoms: reports: shortness of breath. denies: cough, dizziness, fever/chills, headache, hurts to breathe, sore throat, wheezing Similar Symptoms Previously?: Yes (hx of gerd and intermittet sob) Recently seen or treated by another doctor?: No Review of Systems - Adult - REVIEW OF SYSTEMS - ADULT Constitutional: denies: chills, fever Eyes: denies: blurred vision, double vision Ears, Nose, Mouth & Throat: reports: no symptoms reported Cardiovascular: reports: see HPI, edema (BLE 4+). denies: syncope Respiratory: reports: no symptoms reported, dyspnea on exertion Gastrointestinal: reports: see HPI, abdominal pain, frequent heartburn, nausea, vomiting (x1) Genitourinary: reports: no symptoms reported Musculoskeletal: denies: back pain, muscle aches, neck pain Integumentary: reports: no symptoms reported Neurological: denies: dizziness/vertigo, headache/migraines, syncope, tremors Psychiatric: reports: no symptoms reported Endocrine: reports: no symptoms reported Hematologic/Lymphatic: reports: no symptoms reported Allergic/Immunologic: reports: no symptoms reported All Other Systems: Reviewed and Negative Past History - Adult - PAST MEDICAL HISTORY-ADULT Review of Records: reports: Old Records Reviewed, Nursing Assessment Review, Medications Reviewed, Social history reviewed & non-contributory. Major Childhood Illnesses: reports: denies history Cardiovascular: reports: CAD, CHF, HTN, hyperlipidemia, [place] Respiratory: reports: COPD, sleep apnea Gastrointestinal: reports: GERD Obstetrical/Gynecological: reports: denies history Genitourinary: reports: denies history Musculoskeletal: reports: denies history Neurological: reports: denies history Psychiatric: reports: anxiety Endocrine/Immune: reports: Diabetes Diabetes Type: Type 2 Other Conditions: reports: denies history - PRIOR SURGERIES/PROCEDURES Surgical/Procedure History: reports: cardiac stent, orthopedic (extremity) - IMMUNIZATION STATUS Childhood Immunizations: See Nurse Assessment Flu Vaccine: See Nurse Assessment - FAMILY HISTORY Family History: reviewed, not pertinent - SOCIAL HISTORY Smoking: quit greater than 1 year Substance Use: alcohol Alcohol Use Frequency: occasionally Living Situation: care facility Physical Exam-General - PHYSICAL EXAM-ADULT Initial Vital Signs Reviewed: Yes - CONSTITUTIONAL General Appearance: alert, mild distress, obese - EYES Eyes: PERRL/EOMI, pink conjunctivae - HEAD, EARS, NOSE, MOUTH & THROAT HENMT: moist mucous membranes - NECK Neck: full range of motion, supple, normal inspection - RESPIRATORY Respiratory: chest non-tender, lungs clear, normal breath sounds, other (sx have resolved) - CARDIOVASCULAR Cardiovascular: normal peripheral pulses, bradycardia (57) - CHEST (BREASTS) Chest/Breast: deferred - GASTROINTESTINAL (ABDOMEN) Abdominal Exam: normal bowel sounds, non tender, soft, other (sx have resolved) - GENITOURINARY Male Genitalia: deferred Rectal Exam: deferred Hemoccult Exam: deferred - LYMPHATIC Lymphatic: no adenopathy - MUSCULOSKELETAL Back Exam: normal inspection, no CVA tenderness, no vertebral tenderness Extremity: normal range of motion, no calf tenderness, normal capillary refill, erythema (BLE), pedal edema, swelling (BLE edema 4+) - SKIN Integumentary: normal color, normal turgor, warm/dry, erythema (BLE) - NEUROLOGIC Neurologic: grossly normal - PSYCHIATRIC Psych/Mental Status: normal mood/affect, normal thought content, normal thought process, oriented x 3 Progress - PLAN OF CARE/RESULTS Progress/Plan/Lab Results: Vital Signs - 8 hr 08/14/19 11:15 08/14/19 11:28 08/14/19 11:32 Temperature 98.0 F Pulse Rate 59 L 56 L 55 L Respiratory Rate 18 10 L 20 Blood Pressure 169/90 210/90 168/89 O2 Sat by Pulse Oximetry 99 93 L 98 08/14/19 12:00 08/14/19 12:01 08/14/19 12:32 Temperature Pulse Rate 54 L 53 L 55 L Respiratory Rate 25 H 19 25 H Blood Pressure 186/89 193/83 O2 Sat by Pulse Oximetry 97 95 08/14/19 12:48 08/14/19 13:00 08/14/19 13:02 Temperature Pulse Rate 54 L 56 L 53 L Respiratory Rate 22 27 H 24 Blood Pressure 193/83 200/86 O2 Sat by Pulse Oximetry 08/14/19 14:00 08/14/19 14:14 08/14/19 14:15 Temperature Pulse Rate 45 L 45 L 46 L Respiratory Rate 22 25 H 22 Blood Pressure 168/77 O2 Sat by Pulse Oximetry 100 99 08/14/19 15:00 08/14/19 15:02 Temperature Pulse Rate 46 L 45 L Respiratory Rate 21 25 H Blood Pressure 158/92 O2 Sat by Pulse Oximetry 84 L 91 L Laboratory Results - last 24 hr 08/14/19 08/14/19 08/14/19 14:10 14:10 14:10 WBC 11.00 H RBC 4.48 L Hgb 13.7 L Hct 42.6 MCV 95.1 MCH 30.6 MCHC 32.2 L RDW Std Deviation 16.1 H Plt Count 232 MPV 10.1 Neut % (Auto) 74.0 Lymph % (Auto) 12.4 L [place] % (Auto) 9.5 H Eos % (Auto) 3.6 Baso % (Auto) 0.5 Neut # (Auto) 8.15 H Lymph # (Auto) 1.36 [place] # (Auto) 1.04 H Eos # (Auto) 0.40 Baso # (Auto) 0.05 Segmented Neutrophils 75 Band Neutrophils 1 Lymphocytes 16 L Monocytes 4 Eosinophils 3 Metamyelocytes 1.0 Sodium 139 Potassium 4.7 Chloride 95 L Carbon Dioxide 29 Anion Gap 15 BUN 27 H Creatinine 1.3 H Estimated GFR/1.73 m2 54 BUN/Creatinine Ratio 21 Glucose 198 H Calculated Osmolality 288 Calcium 9.5 Total Bilirubin 0.23 AST 12 ALT 12 Alkaline Phosphatase 136 H Troponin T [id number] Pept 1832 H Total Protein 6.5 Albumin 4.0 Globulin 2.5 Albumin/Globulin Ratio 1.6 08/14/19 14:10 WBC RBC Hgb Hct MCV MCH MCHC RDW Std Deviation Plt Count MPV Neut % (Auto) Lymph % (Auto) [place] % (Auto) Eos % (Auto) Baso % (Auto) Neut # (Auto) Lymph # (Auto) [place] # (Auto) Eos # (Auto) Baso # (Auto) Segmented Neutrophils Band Neutrophils Lymphocytes Monocytes Eosinophils Metamyelocytes Sodium Potassium Chloride Carbon Dioxide Anion Gap BUN Creatinine Estimated GFR/1.73 m2 BUN/Creatinine Ratio Glucose Calculated Osmolality Calcium Total Bilirubin AST ALT Alkaline Phosphatase Troponin T < 0.010 Itz-I-Sjwjomrmpdk Pept Total Protein Albumin Globulin Albumin/Globulin Ratio Orders Category Date Time Status Nursing- Obtain EKG ONCE Care 08/14/19 12:18 Active CHEST-1 VIEW [RAD] Stat Exams 08/14/19 12:18 Completed CBC WITH DIFF [HEME] Stat Lab 08/14/19 14:10 Completed COMPREHENSIVE METABOLIC PANEL [CHEM] Stat Lab 08/14/19 14:10 Completed PRO B-NATRIURETIC PEPTIDE Stat Lab 08/14/19 14:10 Completed TROPONIN T Stat Lab 08/14/19 14:10 Completed Furosemide [Lasix] Med 08/14/19 21:00 Active 40 mg PO BID Furosemide [Lasix] Med 08/14/19 15:42 Discontinued 60 mg IV NOW ONE Gabapentin [Neurontin] Med 08/14/19 17:00 Active 100 mg PO TID Insulin Glargine [Lantus Insulin] Med 08/15/19 09:00 Active 25 unit SUBQ QAM Mirtazapine [Remeron] Med 08/15/19 09:00 Active 30 mg PO DAILY EKG [EKG] Stat Ther 08/14/19 12:18 Draft Transfer/Admit Order [TRANSFER] Routine Transfer 08/14/19 16:35 Ordered Result Diagrams: 08/14/19 14:10 08/14/19 14:10 - REASSESSMENT Reassessment #1 Time Reassessed: 15:43 (pt is sleeping in no distress. caregiver is in the room with pt) Status: improving - EKG 1 Time of EKG reading by physician:: 11:27 EKG Read and Signed by:: Dain Simeon EKG Interpretation (*Must complete 3 of following elements*): Normal Rate: 58 Rhythm: sinus bradycardia [place]: normal QRS: normal CT Interval: normal ST Wave: normal - XRAY 1 XRAY: Bilateral XRAY Study: Chest Impression: See EMR Report (EXAM: CHEST-1 VIEW INDICATION: SOB TECHNIQUE: One view COMPARISON: 02/15/2019 FINDINGS: The central vasculature appears mildly prominent suggesting mild pulmonary venous congestion. The lungs are grossly clear, otherwise. There is no discrete pleural fluid collection or pneumothorax. The cardiac silhouette appears somewhat prominent, probably, at least in part, due to magnification from AP technique. IMPRESSION: Mildly prominent central vasculature suggesting possible mild pulmonary venous congestion. Electronically signed by Hasmukh Matos 08/14/2019 12:33 PM 08/14/19 1233 Interpreting Physician: Hasmukh Matos MD Dictated Date/Time: 08/14/19 1231 cc: Dain Simeon MD; Conor Chapman MD) Departure - Departure Date of Disposition Decision: 08/14/19 Time of Disposition Decision: 16:30 DIAGNOSIS: Bradycardia, Hypoxia CHF (congestive heart failure) Qualifiers: Heart failure type: unspecified Heart failure chronicity: acute on chronic Q ualified Code(s): I50.9 - Heart failure, unspecified Disposition: ADMITTED INPATIENT 09 Certified Medical Emergency: Emergent Condition: Good Referrals and Follow-Ups: Conro Chapman MD [Primary Care Provider] - - Critical Care Note This patient required my direct & personal management of CC.: No Attestation - Physician/ HAI Attestation Patient care was provided by Advanced Practice Provider:: No The physician spent face to face time with patient:: Yes Advanced Practice Provider documentation review:: Supervising physician onsite and consulted in the evaluation and care of this patient. The physician did have a face to face encounter with the patient. This chart was documented by the indicated scribe, (Serene Tsang Scribe) and accurately reflects the services I performed and decisions made by me, Dain Simeon MD, as attested by the provider's signature.
[2019-08-14] MEDS ORDERED: ZOFRAN IV PRN (17:58)
--- NOTE | 2019-08-14 18:22 | HISTORY AND PHYSICAL ---
PRIMARY CARE PHYSICIAN: Dr. Conor Chapman. CHIEF COMPLAINT: Shortness of breath and nausea, vomiting x1 this a.m. HISTORY OF PRESENTING ILLNESS: This is a 73-year-old male who presents to [facility] via EMS after he began having some shortness of breath and nausea, vomiting this morning. States that he went to breakfast and came back to his room and fell asleep, woke up and had some reflux with nausea, vomiting x1 and was short of breath so the facility sent him to be checked out. His heart rate was noted to be bradycardic and has been as low as 45. He is noted to have metoprolol 50 mg b.i.d. that he takes routinely and we will hold that. He also on arrival was saturating 99% on 3 L. He fell asleep and about 3 hours later dropped his saturation on the 3 L to 84%. Once he woke up he came back up to 91 to 95 percent but we will admit him for further evaluation and treatment. PAST MEDICAL HISTORY: Of severe PVD, diabetes type 2, CHF and hypertension. PAST SURGICAL HISTORY: Heart stent placement and bilateral leg stent placement. FAMILY HISTORY: Reviewed and noncontributory. SOCIAL HISTORY: Currently lives at [facility]. Denies any tobacco, alcohol or illicit drug use. ALLERGIES: Codeine. HOME MEDICATIONS: We will hold his Glucophage 500 mg p.o. b.i.d. and metoprolol 50 mg p.o. b.i.d., will continue his Lasix 40 mg p.o. b.i.d., gabapentin 100 mg p.o. t.i.d., Lantus 25 units subcu q.a.m. and mirtazapine 30 mg p.o. daily. LABORATORY DATA: Showed a white blood cell count of 11, hemoglobin 13.7, hematocrit 42.6, platelets 232,000. Sodium 139, potassium 4.7, chloride 95, CO2 29, BUN of 27, creatinine of 1.3, glucose 198. Troponin was less than 0.010, proBNP of 1832. Chest x-ray showed mildly prominent central vasculature suggesting possible mild pulmonary venous congestion. EKG showed sinus bradycardia at 58. REVIEW OF SYSTEMS: He denied any fever, chills, blurred vision, dizziness, denied any chest pain, coughing. He was short of breath, had some reflux and nausea vomiting x1, denied any abdominal pain, constipation, diarrhea, burning or hurting with urination. PHYSICAL EXAMINATION: On arrival he had a temperature of 98 degrees, pulse 59, respirations 18, blood pressure 169/90, saturating 99% on room air. Approximately 3 hours after arriving he dropped his O2 saturation to 84% on the 3 L via nasal cannula according to the nurse but he was also noted to have been asleep during that time. When he woke up his O2 saturation came back up to 91%. His heart rate has dropped into the 40s as low was 45. GENERAL: This is a 73-year-old morbidly obese male lying in the bed answers questions appropriately. HEENT: Normocephalic, atraumatic. Normal ENT inspection. Oropharynx and nares are clear. Pupils are equal, round, and reactive to light, accommodation. Extraocular movements are intact. NECK: Normal inspection, normal range of motion. LUNGS: Clear to auscultation bilaterally with equal lung expansion and chest wall movement. HEART: With bradycardia but no murmurs, rubs, or gallops. ABDOMEN: Soft, nontender, nondistended. Bowel sounds are present x4 quadrants. MUSCULOSKELETAL: He had 5/5 strength x4 extremities. NEUROLOGICAL: The cranial nerves 2-12 appear grossly intact. ASSESSMENT: 1. An acute respiratory failure most likely secondary to obstructive sleep apnea. 2. Bradycardia. 3. Hypertension. 4. Diabetes type 2 . OUR PLAN: He will be admitted to the medical unit, placed on telemetry, O2 per protocol, diabetic diet. Pattern blood sugars with sliding scale insulin. SCDs for DVT prophylaxis. We will continue his home medications as previously identified and will recheck a CBC, BMP in the a.m. Dictated by RUFINA Rivera for Lorenzo Faulkner MD cc: MD Lorenzo Villa MD
[2019-08-14] MEDS: DUONEB (A & A) INH SCH ×2 (19:58→23:24)
[2019-08-14] MEDS ORDERED: LASIX PO SCH (21:00)
[2019-08-15] MEDS: HUMALOG SUBQ SCH ×5 (01:14→21:06)
[2019-08-15] MEDS: DUONEB (A & A) INH SCH ×6 (02:59→23:48)
[2019-08-15 07:16] LABS: BASO# 0.05 X1000 (0.0-0.2); BASO% 0.5 % (0.0-0.8); EOS# 0.17 X1000 (0.0-0.7); EOS% 1.6 % (0.0-10.0); HEMATOCRIT 41.1 % (42.0-52.0); HEMOGLOBIN 13.2 g/dL (14.0-18.0); IMM GRAN# 0.06 X1000 (0.0-0.04); IMM GRAN% 0.6 % (0.0-0.5); LYMPH% 9.5 % (20.5-51.1); MCH 30.1 PG (27-31); MCHC 32.1 g/dL (33-37); MCV 93.8 FL (81-99); MONO# 0.82 X1000 (0.11-0.59); MONO% 7.8 % (1.7-9.3); MPV 10.5 FL (7.4-10.4); NEUT# 8.38 X1000 (1.4-6.5); PLT 227 X1000 (130-400); RBC 4.38 XMIL (4.7-6.1); RDW 15.9 % (11.5-14.5); WBC 10.48 X1000 (4.8-10.8)
[2019-08-15 07:39] LABS: CALCIUM 8.7 mg/dL (8.8-10.2); CREATININE 1.2 mg/dL (0.7-1.2); POTASSIUM 4.1 mmol/L (3.5-5.1)
[2019-08-15] MEDS ORDERED: LANTUS INSULIN SUBQ SCH (09:00)
[2019-08-15] MEDS ORDERED: REMERON PO SCH (09:00)
--- NOTE | 2019-08-15 09:07 | PROGRESS NOTE ---
DATE: 08/15/2019 SUBJECTIVE: Mr. Albrecht feels better. He feels like the swelling has gone down in his legs. His breathing at rest is much easier. OBJECTIVE: Vital Signs: Temperature 97.6 degrees, pulse 59, respirations 16, blood pressure 179/76, previous blood pressure 141/59. HEENT: Pupils are equal and round. Lungs: Clear in all lung zapata. Cardiovascular: Regular rhythm and rate without murmur or S3. Abdomen: Soft. Skin: Warm and dry. Blood Sugars: 152 and 195. LABORATORY DATA: A review of labs from yesterday, white count 10,480, hematocrit is 41, hemoglobin 13, platelet count 227,000. Sodium 142, potassium 4.1, chloride 98, BUN is 25, creatinine 1.2. Liver enzymes unremarkable. Blood sugars 152 and 195. ASSESSMENT: 1. Acute respiratory failure, likely secondary to obstructive sleep apnea. He does have some bradycardia, appears to be sinus bradycardia, but adequate perfusion on exam. 2. Bradycardia. 3. Hypertension. 4. Diabetes mellitus type 2. SUMMARY: This patient is followed by Conor Chapman MD, a 73-year-old complaining shortness of breath, nausea, vomiting yesterday morning, presented to [facility] with some shortness of breath, nausea and vomiting. He feels much better today. Cardiology is not involved. We are going to try an CASH inhibitor and see if we can get his afterload down. I gave him another dose of Lasix today, and he will need to get a sleep study and explore sleep apnea as well, as an outpatient. cc: Lorenzo Faulkner MD
[2019-08-15] MEDS: LASIX IV SCH ×2 (12:12→21:07)
[2019-08-15] MEDS: PRINZIDE 20/12.5MG PO SCH (12:12)
[2019-08-15] MEDS: TYLENOL PO PRN (23:08)
[2019-08-16] MEDS: DUONEB (A & A) INH SCH ×6 (03:12→23:09)
[2019-08-16] MEDS: HUMALOG SUBQ SCH ×4 (06:27→22:07)
[2019-08-16] MEDS: PRINZIDE 20/12.5MG PO SCH (08:40)
[2019-08-16] MEDS: LASIX IV SCH ×2 (08:41→22:07)
[2019-08-16] MEDS: TYLENOL PO PRN ×2 (11:25→19:48)
--- NOTE | 2019-08-16 14:19 | PROGRESS NOTE ---
DATE: 08/16/2019 SUBJECTIVE: He does feel better. He sitting up in a chair. His breathing is better. His swelling has gone down. OBJECTIVE: Vital signs: Temperature 98.1 degrees, pulse 90, respirations 20, blood pressure 165/75, pupils are equal and round. Lungs: Clear in all lung zapata. Cardiovascular: Regular rhythm and rate without murmur or S3. ASSESSMENT: 1. Acute respiratory failure, likely secondary to obstructive sleep apnea and had some bradycardia and some pulmonary venous hypertension. 2. Bradycardia. 3. Hypertension. 4. Diabetes mellitus type 2. REVIEW OF ORDERS: He has shown steady improvement and CBC and his electrolytes look good. Blood sugars are staying about 300s to 400s, so we may need to do some adjustment on that. He takes Lasix, he is on Lasix 40 mg IV q.12. Getting lisinopril hydrochlorothiazide 20-12.5 and he takes 2 of those a day. Looking back on his home medications, he was on gabapentin and he is taking his Lantus 25 units q.a.m. We will put him back on that, put him back on his Glucophage and some mirtazapine. cc: Lorenzo Faulkner MD
[2019-08-16] MEDS: GLUCOPHAGE PO SCH (17:33)
[2019-08-16] MEDS ORDERED: KLOR-CON PO ONE (19:26)
[2019-08-16] MEDS ORDERED: LOPRESSOR PO SCH (21:00)
[2019-08-17] MEDS: DUONEB (A & A) INH SCH ×2 (03:40→08:43)
[2019-08-17] MEDS: HUMALOG SUBQ SCH (06:21)
[2019-08-17 07:55] VITALS: BP 161/91
[2019-08-17] MEDS: GLUCOPHAGE PO SCH (08:53)
[2019-08-17] MEDS: LASIX IV SCH (08:53)
[2019-08-17] MEDS: PRINZIDE 20/12.5MG PO SCH (08:53)
--- NOTE | 2019-08-17 09:47 | DISCHARGE SUMMARY ---
ADMISSION DATE: 08/14/2019 DISCHARGE DATE: 08/17/2019 This is a 73-year-old patient of Dr. Conor Chapman who came to [facility] via EMS after he began having shortness of breath and nausea, vomiting. He went to breakfast and came back to his room and fell asleep, woke up, had some reflux and nausea and vomiting x1, shortness of breath so they wanted him to get checked out. His rate was noted to be bradycardic with rates about 45, so they admitted him. They stopped his metoprolol. He was saturating 99%. When he fell asleep though at home apparently his saturations dropped down 84%. When he woke up, it came up back up to 91 to 95%. PAST MEDICAL HISTORY: Severe peripheral vascular disease, diabetes mellitus type 2, congestive heart failure, hypertension. Had a heart stent placement, bilateral leg stent placement. ADMISSION DIAGNOSES: 1. Acute respiratory failure, most likely secondary to obstructive sleep apnea. 2. Bradycardia, likely secondary to metoprolol and some hypertension. We did diurese him and seemed to respond well, breathing better. The swelling went down from his legs and he wanted to go home. Blood sugars have been running a little high and they are dropping back down into the 200 range. Plan to let him go home on Lasix 40 mg p.o. and will give that to him twice a day q.a.m. and at 1 o'clock p.m. and then put him on lisinopril which is 20/12.5 to take 1 tablet twice a day, metformin 500 mg twice a day, potassium chloride 40 mEq daily. He is to follow up with his primary care. cc: Lorenzo Faulkner MD
== END 2019-08-17 11:55 | DRG 308 ==
LOC: SUPCPDRO → ED 11:09 → 3N 16:49
PROVIDERS: ATTEND Emergency Medicine